=== PATIENT | male | born 1940 | race Caucasian/White ===

== ENCOUNTER 2017-10-31 02:57 | Outpatient (CLI) | payer MEDICARE, SELFPAY ==
[2017-10-31 14:50] LABS: Anion Gap 9.4 mmol/L (3-11); BUN 24 mg/dL (7-18); CO2 26.6 mmol/L (21.0-32.0); CREATININE 1.08 mg/dL (0.70-1.30); Calcium 8.3 mg/dL (8.5-10.1); Chloride 105 mmol/L (98-107); Glucose 103 mg/dL (70-100); Potassium 4.4 mmol/L (3.5-5.1); Sodium 141 mmol/L (136-145)
== END 2017-10-31 03:17 ==
PROVIDERS: PCP Nurse Practitioner Family; Visit Provider Nurse Practitioner Family
DX: I10 Essential (primary) hypertension (principal)
CPT/HCPCS: 36415; 80048

== ENCOUNTER 2017-11-15 02:14 | Outpatient (CLI) | payer MEDICARE, SELFPAY ==
[2017-11-15 09:55] LABS: Albumin 3.6 g/dL (3.4-5.0); Calcium 8.9 mg/dL (8.5-10.1)
== END 2017-11-15 02:34 ==
PROVIDERS: PCP Nurse Practitioner Family; Visit Provider Nurse Practitioner Family
DX: E83.51 Hypocalcemia (principal)
CPT/HCPCS: 36415; 82040; 82310

== ENCOUNTER 2017-12-11 01:40 | Outpatient (CLI) | payer MEDICARE, SELFPAY ==
[2017-12-11 10:37] LABS: Abs Immature Grans 0.02 k/cumm (0.0-0.09); Absolute Basophil Count 0.01 k/cumm (0.0-0.2); Absolute Eosinophil Count 0.21 k/cumm (0.0-0.7); Basophils % 0.2; Eosinophils % 4.2; HCT 39.7 % (40.0-50.0); HGB 13.9 g/dL (13.5-17.5); Immature Grans % 0.4; Lymphocytes % 33.7; Mean Corpuscular Hemoglobin 33.9 pg (27.0-33.0); Mean Corpuscular Volume 96.8 fL (80-95); Mean Platelet Volume 9.9 fL (8.0-11.0); Monocytes % 11.9; Neutrophils % 49.6; Platelet Count 212 x1000/uL (130-400); RBC Distribution Width 12.4 % (11.8-14.1); White Blood Cell Count 5.04 k/cumm (4.4-10.8)
[2017-12-11 12:58] LABS: ALT 35 U/L (12-78); AST 22 U/L (15-37); Albumin 3.7 g/dL (3.4-5.0); Alkaline Phosphatase 44 U/L (46-116); Anion Gap 5.1 mmol/L (3-11); BUN 18 mg/dL (7-18); Bilirubin, Total 0.7 mg/dL (0.2-1.0); CO2 31.9 mmol/L (21.0-32.0); CREATININE 0.93 mg/dL (0.70-1.30); Calcium 9.1 mg/dL (8.5-10.1); Chloride 102 mmol/L (98-107); Glucose 99 mg/dL (70-100); Potassium 4.3 mmol/L (3.5-5.1); Sodium 139 mmol/L (136-145); TSH (W/Ref FT4) 1.47 uIU/mL (0.358-3.74); Total Protein 6.6 g/dL (6.4-8.2)
== END 2017-12-11 02:00 ==
PROVIDERS: PCP Nurse Practitioner Family; Visit Provider Nurse Practitioner Family
DX: R53.83 Other fatigue (principal)
CPT/HCPCS: 36415; 80053; 84443; 85025

== ENCOUNTER 2018-03-21 16:09 | Outpatient (CLI) | payer MEDICARE, SELFPAY ==
--- NOTE | 2018-03-21 16:00 | DI.RAD_ITS ---
SYMPTOMS/DIAGNOSIS: DYSPNEA ON EXERTION, R06.09, CERVICALGIA, M54.2, ACUTE PHARYNGITIS, J02.9, SORE THROAT, ? CARDIOPULMONARY VS MALIGNANCY PA AND LATERAL CHEST: Comparison is made with chest CT dated February,. The heart size is at the upper limits of normal. The aorta is tortuous and shows some calcification but appears to be normal in diameter. The lungs are clear. No infiltrate, effusion or mass is identified. IMPRESSION: No acute abnormality.
[2018-03-21 16:25] LABS: Abs Immature Grans 0.02 k/cumm (0.0-0.09); Absolute Basophil Count 0.01 k/cumm (0.0-0.2); Absolute Eosinophil Count 0.13 k/cumm (0.0-0.7); Absolute Lymphocyte Count 1.62 k/cumm (1.2-3.4); Absolute Neutrophil Count 4.24 k/cumm (1.2-6.7); Basophils % 0.1; Eosinophils % 1.9; HCT 41.7 % (40.0-50.0); HGB 14.1 g/dL (13.5-17.5); Immature Grans % 0.3; Lymphocytes % 23.8; Mean Corp. HGB Concentration 33.8 g/dL (32.0-36.0); Mean Corpuscular Hemoglobin 32.6 pg (27.0-33.0); Mean Corpuscular Volume 96.5 fL (80-95); Mean Platelet Volume 9.4 fL (8.0-11.0); Monocytes % 11.7; Neutrophils % 62.2; Platelet Count 237 x1000/uL (130-400); RBC 4.32 m/cumm (4.50-6.00); RBC Distribution Width 12.6 % (11.8-14.1); White Blood Cell Count 6.82 k/cumm (4.4-10.8)
[2018-03-21 17:03] LABS: Mono Screening Negative (Negative)
[2018-03-21 18:18] LABS: ALT 26 U/L (12-78); AST 21 U/L (15-37); Albumin 3.9 g/dL (3.4-5.0); Alkaline Phosphatase 52 U/L (46-116); Anion Gap 6.3 mmol/L (3-11); BUN 25 mg/dL (7-18); Bilirubin, Total 0.4 mg/dL (0.2-1.0); CO2 30.7 mmol/L (21.0-32.0); CREATININE 1.05 mg/dL (0.70-1.30); Calcium 9.4 mg/dL (8.5-10.1); Chloride 102 mmol/L (98-107); Glucose 101 mg/dL (70-100); Potassium 4.3 mmol/L (3.5-5.1); Sodium 139 mmol/L (136-145); Total Protein 7.1 g/dL (6.4-8.2)
== END 2018-03-21 16:29 ==
PROVIDERS: PCP Nurse Practitioner Family; Visit Provider Nurse Practitioner Family
DX: R06.09 Other forms of dyspnea (principal); I10 Essential (primary) hypertension; J02.9 Acute pharyngitis, unspecified; R53.83 Other fatigue; M54.2 Cervicalgia
CPT/HCPCS: 36415; 80053; 71046; 85025; 86308

== ENCOUNTER 2018-04-03 00:04 | Outpatient (CLI) | payer MEDICARE, SELFPAY ==
--- NOTE | 2018-04-03 07:40 | MERGE_ITS ---
*[facility], [place]* * Cardiology* [address] [place] [address] Date of study: 04/03/2018 Transthoracic Echocardiography M-mode, complete 2D, complete spectral Doppler, and color Doppler *STUDY CONCLUSIONS* Summary: 1. Left ventricle: The cavity size was normal. Systolic function was hyperdynamic. The estimated ejection fraction was 65-70%. Diastolic parameters were normal for age. There was no evidence of elevated ventricular filling pressure by Doppler parameters. 2. Aortic valve: There was moderate regurgitation. 3. Mitral valve: There was mild regurgitation. 4. Right ventricle: The cavity size was mildly dilated. Systolic function was mildly reduced. 5. Atrial septum: No defect or patent foramen ovale was identified. 6. Tricuspid valve: There was moderate regurgitation. 7. Pulmonary arteries: Pulmonary systolic pressure was in the range of 30mm Hg to 40mm Hg. 8. Inferior vena cava: The vessel was patent and normal in size. The respirophasic diameter changes were in the normal range (greater than or equal to 50%), consistent with normal central venous pressure. *PATIENT PRESENTATION* Height: 162.6cm ((64in) ) S/D Pressure: 125 / 67 Weight: 79.8kg ((175.6lb) ) BSA: 1.92m^2 Test start time: 07:45 AM. Test stop time: 08:35 AM. PERFORMING Unknown PERFORMING [facility] DEPLOYMENT TECHNICIAN RT Beau (Jude)(CT), RDCS ORDERING Elizabeth Moe REFERRING Elizabeth Moe *PROCEDURE DATA* Procedure information: The patient was identified by two identifiers. This study was interpreted by [facility]. Pertinent images and digital data are archived for permanent storage and are available for subsequent review. No prior study was available for comparison. Study status: Routine. Transthoracic echocardiography. M-mode, complete 2D, complete spectral Doppler, and color Doppler. A Transthoracic Echocardiogram was performed. Scanning was performed from the parasternal, apical, subcostal, and suprasternal notch acoustic windows. Images were obtained using an [id number] cardiac ultrasound machine. Image quality was adequate. Study completion: The patient tolerated the procedure well. History: PMH: WALKER cardiomegaly , r/o heart failure or valvular abnormality. r06.09 I 51.7. *CARDIAC ANATOMY* Left ventricle: The cavity size was normal. Systolic function was hyperdynamic. The estimated ejection fraction was 65-70%. The tissue Doppler parameters were normal. Diastolic parameters were normal for age. There was no evidence of elevated ventricular filling pressure by Doppler parameters. Aortic valve: Trileaflet. Doppler: There was no stenosis. There was moderate regurgitation. VTI ratio of LVOT to aortic valve: 0.66. Valve area (VTI): 2.2cm^2. Indexed valve area (VTI): 1.2cm^2/m^2. Peak velocity ratio of LVOT to aortic valve: 0.68. Valve area (Vmax): 2.3cm^2. Indexed valve area (Vmax): 1.2cm^2/m^2. Mean velocity ratio of LVOT to aortic valve: 0.65. Valve area (Vmean): 2.2cm^2. Indexed valve area (Vmean): 1.1cm^2/m^2. Mean gradient (S): 5.4mm Hg. Peak gradient (S): 9.2mm Hg. Mitral valve: Doppler: There was no evidence for stenosis. There was mild regurgitation. Valve area by pressure half-time: 3.8cm^2. Indexed valve area by pressure half-time: 2cm^2/m^2. Left atrium: The atrium was normal in size. Atrial septum: No defect or patent foramen ovale was identified. Right ventricle: The cavity size was mildly dilated. Systolic function was mildly reduced. Pulmonic valve: Doppler: There was no evidence for stenosis. Tricuspid valve: Doppler: There was moderate regurgitation. Pulmonary artery: Poorly visualized. Pulmonary systolic pressure was in the range of 30mm Hg to 40mm Hg. Right atrium: The atrium was normal in size. Pericardium: There was no pericardial effusion. Systemic veins: Inferior vena cava: Well visualized. The vessel was patent and normal in size. The respirophasic diameter changes were in the normal range (greater than or equal to 50%), consistent with normal central venous pressure. Baseline ECG: Sinus bradycardia. Measurements Left ventricle Value Reference LV ID, ED, PLAX 5.9 cm 3.5 - 6.0 LV ID, ES, PLAX (H) 4.1 cm 2.1 - 4.0 LV PW thickness, ED, PLAX 0.9 cm LV end-diastolic volume, 1-p A2C 104 ml LV ejection fraction, 1-p A2C 64 % LV end-diastolic volume, 1-p A4C 92 ml LV ejection fraction, 1-p A4C 60 % LV e', lateral 0.115 m/sec LV E/e', lateral 6 LV e', medial 0.108 m/sec LV E/e', medial 6 LV e', average 0.111 m/sec LV E/e', average 6 Ventricular septum Value Reference IVS thickness, ED, PLAX 1.1 cm LVOT Value Reference LVOT ID, A-P 2.1 cm LVOT area 3.4 cm^2 LVOT peak velocity, S 1.03 m/sec LVOT mean velocity, S 0.71 m/sec LVOT VTI, S 22.5 cm LVOT peak gradient, S 4.3 mm Hg LVOT mean gradient, S 2.3 mm Hg Stroke volume (SV), LVOT DP 76 ml Stroke index (SV/bsa), LVOT DP 40 ml/m^2 Aortic valve Value Reference Aortic valve peak velocity, S 1.5 m/sec Aortic valve mean velocity, S 1.09 m/sec Aortic valve VTI, S 34.0 cm Aortic mean gradient, S 5.4 mm Hg Aortic peak gradient, S 9.2 mm Hg VTI ratio, LVOT/AV 0.66 Aortic valve area, VTI 2.2 cm^2 Velocity ratio, peak, LVOT/AV 0.68 Aortic valve area, peak velocity 2.3 cm^2 Velocity ratio, mean, LVOT/AV 0.65 Aortic valve area, mean velocity 2.2 cm^2 Aortic valve area/bsa, mean velocity 1.1 cm^2/m^2 Aorta Value Reference Aortic root ID, ED 3.7 cm Ascending aorta ID, A-P, S 3.9 cm Left atrium Value Reference LA ID, A-P, ES 4.6 cm LA ID/bsa, A-P (H) 2.4 cm/m^2 <=2.2 LA area, ES, A4C 21.2 cm^2 8.8 - 23.4 LA area, ES, A2C 22 cm^2 LA volume/bsa, ES, 1-p A4C 34 ml/m^2 LA volume, ES, 2-p 62 ml LA volume/bsa, ES, 2-p 32 ml/m^2 LA/aortic root ratio 1.22 Mitral valve Value Reference Mitral E-wave peak velocity 0.7 m/sec Mitral A-wave peak velocity 0.59 m/sec Mitral deceleration time 201 ms 150 - 230 Mitral pressure half-time 58 ms Mitral E/A ratio, peak 1.17 Mitral valve area, PHT, DP 3.8 cm^2 Pulmonary veins Value Reference Pulmonary vein peak velocity, S 0.5 m/sec Pulmonary vein peak velocity, D 0.46 m/sec Pulmonary vein velocity ratio, peak, 1.09 S/D Pulmonary vein A-wave reversal peak 0.29 m/sec velocity Tricuspid valve Value Reference Tricuspid regurg peak velocity 2.8 m/sec Tricuspid peak RV-RA gradient 31.5 mm Hg Right atrium Value Reference RA area, ES, A4C 18.1 cm^2 8.3 - 19.5 Legend: (L) and (H) rashmi values outside specified reference range. I have personally reviewed the images and have reviewed and edited the reported findings. Electronically signed by Elijah Martines MD 04/03/2018 12:52
== END 2018-04-03 00:24 ==
PROVIDERS: PCP Nurse Practitioner Family; Visit Provider Nurse Practitioner Family
DX: I51.7 Cardiomegaly (principal); R06.09 Other forms of dyspnea; I08.3 Combined rheumatic disorders of mitral, aortic and tricuspid valves; I10 Essential (primary) hypertension
CPT/HCPCS: 93306

== ENCOUNTER 2018-04-11 00:11 | Outpatient (CLI) | payer MEDICARE, SELFPAY ==
--- NOTE | 2018-04-11 08:30 | ETT_ITS ---
*[facility]* *[facility]* [address] [place] [address] Stress Electrocardiography Kain protocol Date of study: 04/11/2018 *PATIENT PRESENTATION* Height: 162.6cm (64in) Blood Pressure: Weight: 79.8kg (175.6lb) BSA: 1.92m^2 Referring physician: Elizabeth Moe Ordering physician: Elizabeth Moe Impressions: Abnormal study , ST depressions without angina. Summary: 1. Stress ECG conclusions: The stress ECG is positive. 2. Stress: The target heart rate was achieved. The heart rate response to stress is normal. There is a normal resting blood pressure with an appropriate response to stress. The patient experienced no chest pain during stress. Exercise capacity is above normal for age. 3. Treadmill exercise testing was performed using the Kain protocol. The patient exercised for 9 min 39 sec, to protocol stage 3, to a maximal work rate of 11.2mets. Exercise was terminated due to fatigue. Recommendations: Exercise stress myocardial perfusion imaging should be performed in order to evaluate coronary artery disease. Indication: R06.02, Appropriate Use Criteria: A (Appropriate). History: REASON FOR VISIT: DYSPNEA ON EXERTION. POORLY CONTROLLED BLOOD PRESSURE. Risk factors: Hypertension. Obesity. Cholesterol: 192mg/dl. HDL: 73mg/dl. LDL: 113mg/dl. Triglycerides: 50mg/dl. ALLERGIES: NO REPORTED ALLERGIES. MEDICATIONS: ATORVASTATIN 20 MG DAILY. LOSARTAN 50 MG DAILY. CYCLOBENZAPRINE 5 MG TID PRN. ACETAZOLAMIDE 250 MG BID PRN. ASCORBIC ACID 1000 MG DAILY PRN. CALCIUM CARBONATE-VIT D3 MIN DAILY. IBUPROFEN 400 MG Q 6 HRS PRN. MVI DAILY. FEXOFENADINE 180 MG DAILY PRN. SCOPOLAMINE PATCH Q 3 DAYS PRN. HYDROCHLOROTHIAZIDE 25 MG DAILY. POTASSIUM CHLORIDE 10 MEQ DAILY. ZALEPLON 5 MG Q HS. Protocol: Kain protocol. Baseline ECG: SINUS BRADYCARDIA. HR 52 BPM. INCOMPLETE RBBB. Normal ECG. Stress protocol: + +---+ + !Stage !HR !BP (mmHg) ! + +---+ + !Baseline supine !52 !130/80 (97) ! + +---+ + !Baseline standing !75 !132/82 (99) ! + +---+ + !Stage I; 1.7mph, 10degrees; 3 min !107!160/88 (112)! + +---+ + !Stage II; 2.5mph, 12degrees; 3 min !117!160/94 (116)! + +---+ + !Stage III; 3.4mph, 14degrees; 3 min!152!184/90 (121)! + +---+ + !Peak stress !130! ! + +---+ + !Immediate post stress !---!190/88 (122)! + +---+ + !Recovery; 1 min !130! ! + +---+ + !Recovery; 3 min !99 !160/90 (113)! + +---+ + !Recovery; 6 min !85 !136/78 (97) ! + +---+ + * Stress results: Maximal heart rate during stress was 156bpm (108% of maximal predicted heart rate). The maximal predicted heart rate was 144bpm. The target heart rate was achieved. The heart rate response to stress is normal. There is a normal resting blood pressure with an appropriate response to stress. The rate-pressure product for the peak heart rate and blood pressure was 80377aq Hg/min. The patient experienced no chest pain during stress. Exercise capacity is above normal for age. Stress ECG: TREADMILL PORTION OF STRESS TEST ENDED IN 9 MINUTES & 39 SECONDS DUE TO FATIGUE. NORMAL HEART RATE AND BLOOD PRESSURE RESPONSE TO EXERCISE MAX HR = 156 % OF TARGET = 108 RARE PVCs APPROXIMATE METS ACHIEVED = 11.[address] SEGMENT DEPRESSIONS NOTED V4, V5 & V6 AT 8 MINUTES & 49 SECONDS OF PEAK EXERCISE. RETURNED BACK TO BASELINE BY 6 MINUTES RECOVERY PERIOD. ABOVE AVERAGE FUNCTIONAL CAPACITY FOR EXERCISE. The stress ECG is positive. Stress ECG change: slow upsloping depression. Severity: 1.0-1.5mm. In lead groups: V4, V5 and V6. Garcia treadmill score: 2. This score predicts a moderate risk of cardiac events. Study data: Salo Munroe MD supervised and was readily available during the procedure. This study was interpreted by [facility]. Study status: Routine. Consent: The risks, benefits, and alternatives to the procedure were explained to the patient and informed consent was obtained. Procedure: Initial setup. A baseline ECG was recorded. Surface ECG leads and manual cuff blood pressure measurements were monitored. Heart sounds: Normal. Lung sounds: Normal. Treadmill exercise testing was performed using the Kain protocol. The patient exercised for 9 min 39 sec, to protocol stage 3, to a maximal work rate of 11.2mets. Exercise was terminated due to fatigue. Study completion: The patient tolerated the procedure well and was discharged from the lab. Discharge: The patient left the laboratory in stable condition. Birthdate: Patient birthdate: 1940. Sex: Gender: male. Study date: Study date: 04/11/2018. Study time: 00:01 AM. Signature Documentation: The Stress ECG portion of this study was interpreted by Salo Munroe MD. Electronically signed by Salo Munroe 04/11/2018 13:07
== END 2018-04-11 00:31 ==
PROVIDERS: PCP Nurse Practitioner Family; Visit Provider Nurse Practitioner Family
DX: R06.09 Other forms of dyspnea (principal); I10 Essential (primary) hypertension; E78.5 Hyperlipidemia, unspecified; R94.30 Abnormal result of cardiovascular function study, unspecified; E66.9 Obesity, unspecified
CPT/HCPCS: 93016; 93018; 93017

== ENCOUNTER 2018-04-16 13:02 | Outpatient (CLI) | payer MEDICARE, SELFPAY ==
[2018-04-16 15:41] LABS: Cholesterol 134 mg/dL (50-200); HDL Cholesterol 61 mg/dL (40-60); LDL CHOLESTEROL 62 mg/dL (<100); Triglyceride 37 mg/dL (30-150)
[2018-04-17 09:25] LABS: PSA, Screening <0.1 ng/ml (0-6.5)
== END 2018-04-16 13:22 ==
PROVIDERS: PCP Nurse Practitioner Family; Visit Provider Nurse Practitioner Family
DX: E78.5 Hyperlipidemia, unspecified (principal); Z85.46 Personal history of malignant neoplasm of prostate; Z12.5 Encounter for screening for malignant neoplasm of prostate
CPT/HCPCS: 36415; 80061; 83721; 84153

== ENCOUNTER 2018-04-19 00:12 | Outpatient (CLI) | payer MEDICARE, SELFPAY ==
--- NOTE | 2018-04-19 07:02 | MERGEMPI_ITS ---
*[facility]* [address] [place] [address] Myocardial Perfusion Imaging - SPECT Kain protocol Date of study: 04/19/2018 *PATIENT PRESENTATION* Height: 162.6cm (64in) Blood Pressure: Weight: 79.8kg (175.6lb) BSA: 1.92m^2 Referring physician: Melissa Mejia Ordering physician: Elizabeth Moe Impressions: Normal perfusion and contraction by Tc99m Sestamibi Imaging. Summary: 1. Myocardial perfusion imaging: No myocardial perfusion defects noted. 2. The calculated left ventricular ejection fraction after stress: 55%. LV global systolic function is normal. No left ventricular regional motion abnormality. 3. Stress ECG conclusions: The stress ECG is positive. Maximal ST change occurred during the exercise phase. Stress ECG change: horizontal depression. Severity: 1.5-2.0mm. In lead groups: V3, V4, V5 and V6. Rare atrial ectopy. 4. Stress: The target heart rate was achieved. There is resting hypertension with an appropriate response to stress. The patient experienced no chest pain during stress. Exercise capacity is above normal for age. Indication: R06.09. History: REASON FOR VISIT: PT IS RETURNING FOR A NUCLEAR MPI STRESS TEST DUE TO AN ABNORMAL TREADMILL STRESS TEST ON 04/11/[address] DEPRESSIONS WITHOUT ANGINA. Risk factors: Hypertension. Obesity. Cholesterol: 192mg/dl. HDL: 61mg/dl. LDL: 62mg/dl. Triglycerides: 37mg/dl. ALLERGIES: SIMVASTATIN. MEDICATONS: ATARVASTATIN 20 MG DAILY. LOSARTAN 50 MG DAILY. CYCLOBENZAPRINE 5 MG TID PRN. ACETAZOLAMIDE 250 MG BID PRN. ASCORBIC ACID 1000 MG DAILY PRN. CALCIUM CARBONATE-VIT D3 DAILY. IBUPROFEN 400 MG Q 6 HRS PRN. MVI DAILY. FEXOFENADINE 180 MG DAILY PRN. SCOPOLAMINE PATCH Q 3 DAYS PRN. HYDROCHLOROTHIAZIDE 25 MG DAILY. POTASSIUM CHLORIDE 10 MEQ DAILY. ZALEPLON 5 MG Q HS. Imaging Technique: Protocol: Kain protocol. Acquisition: Gated SPECT; 1 day - rest/stress. The patient was imaged in the supine position. Attenuation correction used. Isotope administration: - Rest. Tc[99m]-sestamibi. Dose: 10.2mCi. Injection time: 08:20 AM. Injection to stress time: 00:45. - Stress. Tc[99m]-sestamibi. Dose: 32.6mCi. Injection time: 10:00 AM. 1-2 min before end of exercise Baseline ECG: SINUS BRADYCARDIA. INCOMPLETE RBBB. HR 55 BPM. Stress protocol: + +---+ + !Stage !HR !BP (mmHg) ! + +---+ + !Baseline supine !55 !154/84 (107)! + +---+ + !Baseline standing !54 !152/82 (105)! + +---+ + !Stage I; 1.7mph, 10degrees; 3 min !109!142/80 (101)! + +---+ + !Stage II; 2.5mph, 12degrees; 3 min !126!152/80 (104)! + +---+ + !Stage III; 3.4mph, 14degrees; 3 min!150! ! + +---+ + !Peak stress !152! ! + +---+ + !Recovery; 1 min !152!182/78 (113)! + +---+ + !Recovery; 3 min !88 !156/90 (112)! + +---+ + !Recovery; 6 min !72 !142/80 (101)! + +---+ + * Stress results: Maximal heart rate during stress was 152bpm (106% of maximal predicted heart rate). The maximal predicted heart rate was 144bpm. The target heart rate was achieved. There is resting hypertension with an appropriate response to stress. The rate-pressure product for the peak heart rate and blood pressure was 07526kh Hg/min. The patient experienced no chest pain during stress. Exercise capacity is above normal for age. Stress ECG: TREADMILL PORTION OF STRESS TEST ENDED IN 8 MINUTES & 1 SECOND DUE TO PT REACHED 100% OF HIS EXERCISE CAPACITY. NORMAL HEART RATE AND BLOOD PRESSURE RESPONSE TO EXERCISE MAX HR = 152 % OF TARGET = 105 RARE PAC APPROXIMATE METS ACHIEVED = 10.[address] SEGMENT DEPRESSIONS IN V3, V4, V5 & V6 FIRST NOTED AT 6 MINUTES & [address] SEGMENTS RETURNED TO PRE-EXERCISE BASELINE AT 3 MINUTES & 39 SECONDS OF RECOVERY PERIOD. ABOVE AVERAGE FUNCTIONAL CAPACITY FOR EXERCISE. The stress ECG is positive. Maximal ST change occurred during the exercise phase. Stress ECG change: horizontal depression. Severity: 1.5-2.0mm. In lead groups: V3, V4, V5 and V6. Rare atrial ectopy. Myocardial perfusion: Imaging information: gated. Left ventricular size is normal. No myocardial perfusion defects noted. Ventricular Function (Wall Motion): The calculated left ventricular ejection fraction after stress: 55%. LV global systolic function is normal. No left ventricular regional motion abnormality. Study data: Melissa Mejia MD supervised and was readily available during the procedure. This study was interpreted by [facility]. Study status: Routine. Consent: The risks, benefits, and alternatives to the procedure were explained to the patient and informed consent was obtained. Procedure: Initial setup. A baseline ECG was recorded. Surface ECG leads and manual cuff blood pressure measurements were monitored. Heart sounds: Normal. Lung sounds: Normal. Treadmill exercise testing was performed using the Kain protocol. Study completion: All catheters inserted during the procedure were removed. The patient tolerated the procedure well and was discharged from the lab. Discharge: The patient left the laboratory in stable condition. Birthdate: Patient birthdate: 1940. Sex: Gender: male. Study date: Study date: 04/19/2018. Study time: 00:01 AM. Signature Documentation: - The imaging portion of this study was interpreted by [employer] Melissa Mejia MD. - The Stress ECG portion of this study was interpreted by Melissa Mejia MD. Electronically signed by Melissa Mejia 04/19/2018 19:00
== END 2018-04-19 00:32 ==
PROVIDERS: PCP Nurse Practitioner Family; Visit Provider Nurse Practitioner Family
DX: R06.09 Other forms of dyspnea (principal); R94.30 Abnormal result of cardiovascular function study, unspecified; I10 Essential (primary) hypertension; E66.9 Obesity, unspecified
CPT/HCPCS: 78452; 93016; 93018; 93017

== ENCOUNTER 2018-12-07 13:24 | Outpatient (CLI) | payer MEDICARE, SELFPAY ==
[2018-12-07 13:57] LABS: Hemoglobin A1C 5.7 % (4.5-6.2)
[2018-12-07 14:38] LABS: ALT 36 U/L (16-63); AST 19 U/L (15-37); Albumin 3.9 g/dL (3.4-5.0); Alkaline Phosphatase 49 U/L (46-116); Anion Gap 9.7 mmol/L (3-11); BUN 19 mg/dL (7-18); Bilirubin, Total 0.8 mg/dL (0.2-1.0); CO2 28.3 mmol/L (21.0-32.0); Calculated LDL 63 mg/dL; Chloride 103 mmol/L (98-107); Cholesterol 155 mg/dL (50-200); Glucose 98 mg/dL (70-100); HDL Cholesterol 68 mg/dL (40-60); Potassium 4.1 mmol/L (3.5-5.1); Sodium 141 mmol/L (136-145); Total Protein 6.8 g/dL (6.4-8.2); Triglyceride 124 mg/dL (30-150)
[2018-12-10 09:42] LABS: PSA, Screening <0.1 ng/ml (0-6.5)
== END 2018-12-07 13:44 ==
PROVIDERS: PCP Nurse Practitioner Family; Visit Provider Nurse Practitioner Family
DX: C61 Malignant neoplasm of prostate (principal); E78.5 Hyperlipidemia, unspecified; R73.01 Impaired fasting glucose; I10 Essential (primary) hypertension
CPT/HCPCS: 36415; 80053; 80061; 84153; 83036

== ENCOUNTER 2018-12-17 01:47 | Outpatient (CLI) | payer MEDICARE, SELFPAY | END 2018-12-17 02:07 | PROVIDERS: PCP Nurse Practitioner Family; Visit Provider Nurse Practitioner Family | DX: R42 Dizziness and giddiness (principal); I49.1 Atrial premature depolarization; I49.3 Ventricular premature depolarization | CPT/HCPCS: 93225 ==

== ENCOUNTER 2018-12-19 15:18 | Outpatient (CLI) | payer MEDICARE, SELFPAY ==
--- NOTE | 2018-12-20 08:05 | W.HOLTRPT ---
Holter Monitor Report Holter Monitor Note: This is a 48-hour Holter monitor ordered for the indication of lightheadedness. ?The patient was in normal sinus rhythm for the majority of the recording time. Average heart rate while in normal sinus rhythm was 59 bpm (minimum 45bpm ?maximum 107bpm) ?There were no episodes of supraventricular tachycardia. There were rare (less than 1%) PACs and one run of 3 PACs in a row. ?There were no episodes of ventricular tachycardia. There were rare (less than 1%) single ventricular ectopic beats. ?There were no episodes of atrial fibrillation, no pauses greater than 3 seconds, and no episodes of high degree heart block. ?There were no patient triggered events Date of service: 12/20/18 Time of Service: 08:06
== END 2018-12-19 15:38 ==
PROVIDERS: PCP Nurse Practitioner Family; Visit Provider Nurse Practitioner Family
DX: R42 Dizziness and giddiness (principal); I49.1 Atrial premature depolarization; I49.3 Ventricular premature depolarization
CPT/HCPCS: 93226

== ENCOUNTER 2018-12-20 08:05 | Outpatient (CLI) | payer MEDICARE, SELFPAY | END 2018-12-20 08:25 | PROVIDERS: PCP Nurse Practitioner Family; Referring Provider Nurse Practitioner Family; Visit Provider Internal Medicine Cardiovascular Disease | DX: R42 Dizziness and giddiness (principal); I49.1 Atrial premature depolarization; I49.3 Ventricular premature depolarization | CPT/HCPCS: 93227 ==

== ENCOUNTER 2019-05-01 13:35 | Outpatient (CLI) | payer MEDICARE, SELFPAY ==
[2019-05-01 13:57] LABS: Abs Immature Grans 0.01 k/cumm (0.0-0.09); Absolute Basophil Count 0.01 k/cumm (0.0-0.2); Absolute Eosinophil Count 0.11 k/cumm (0.0-0.7); Absolute Lymphocyte Count 1.84 k/cumm (1.2-3.4); Absolute Monocyte Count 0.77 k/cumm (0.11-0.7); Absolute Neutrophil Count 4.09 k/cumm (1.2-6.7); Basophils % 0.1; Eosinophils % 1.6; HCT 39.7 % (40.0-50.0); HGB 13.5 g/dL (13.5-17.5); Immature Grans % 0.1 %; Lymphocytes % 26.9; Mean Corpuscular Hemoglobin 32.4 pg (27.0-33.0); Mean Corpuscular Volume 95.2 fL (80-95); Mean Platelet Volume 10.6 fL (8.0-11.0); Monocytes % 11.3; Platelet Count 240 x1000/uL (130-400); RBC 4.17 m/cumm (4.50-6.00); RBC Distribution Width 13.3 % (11.8-14.1); White Blood Cell Count 6.83 k/cumm (4.4-10.8)
[2019-05-01 14:47] LABS: ALT 25 U/L (16-63); AST 18 U/L (15-37); Albumin 3.9 g/dL (3.4-5.0); Alkaline Phosphatase 40 U/L (46-116); Anion Gap 8.7 mmol/L (3-11); BUN 22 mg/dL (7-18); Bilirubin, Total 0.8 mg/dL (0.2-1.0); CO2 27.3 mmol/L (21.0-32.0); CREATININE 1.04 mg/dL (0.70-1.30); Calcium 8.4 mg/dL (8.5-10.1); Chloride 105 mmol/L (98-107); Glucose 91 mg/dL (74-106); Potassium 4.3 mmol/L (3.5-5.1); Sodium 141 mmol/L (136-145); TSH (W/Ref FT4) 2.02 uIU/mL (0.36-3.74); Total Protein 6.4 g/dL (6.4-8.2)
[2019-05-01 14:58] LABS: Hemoglobin A1C 5.9 % (3.8-5.6)
[2019-05-02 10:04] LABS: PSA, Screening <0.1 ng/mL (0.0-6.5)
== END 2019-05-01 13:55 ==
PROVIDERS: PCP Nurse Practitioner Family; Visit Provider Nurse Practitioner Family
DX: R73.01 Impaired fasting glucose (principal); R53.83 Other fatigue; R42 Dizziness and giddiness; Z12.5 Encounter for screening for malignant neoplasm of prostate
CPT/HCPCS: 36415; 80053; 84153; 83036; 84443; 85025

== ENCOUNTER 2019-11-04 09:14 | Outpatient (CLI) | payer MEDICARE, SELFPAY ==
[2019-11-06 07:45] LABS: Patient Race White; SARS-CoV-2 RNA Undetected (Undetected); SARS-CoV-2 Specimen Source Nasopharynx
== END 2019-11-04 09:34 ==
PROVIDERS: PCP Nurse Practitioner Family; Visit Provider Family Medicine
DX: Z11.59 Encounter for screening for other viral diseases (principal)
CPT/HCPCS: U0003

== ENCOUNTER 2020-01-08 03:05 | Outpatient (CLI) | payer MEDICARE, SELFPAY ==
[2020-01-08 10:25] LABS: ALT 28 U/L (16-63); AST 18 U/L (15-37); Alkaline Phosphatase 48 U/L (46-116); Anion Gap 7.2 mmol/L (3-11); BUN 20 mg/dL (7-18); Bilirubin, Total 0.6 mg/dL (0.2-1.0); CO2 27.8 mmol/L (21.0-32.0); CREATININE 1.05 mg/dL (0.70-1.30); Calcium 8.7 mg/dL (8.5-10.1); Chloride 106 mmol/L (98-107); Glucose 96 mg/dL (74-106); NT-proBNP 48 pg/mL (<300); Potassium 4.9 mmol/L (3.5-5.1); Sodium 141 mmol/L (136-145); Total Protein 6.9 g/dL (6.4-8.2)
== END 2020-01-08 03:25 ==
PROVIDERS: PCP Nurse Practitioner Family; Visit Provider Nurse Practitioner Family
DX: I50.9 Heart failure, unspecified (principal); R60.0 Localized edema; M79.89 Other specified soft tissue disorders
CPT/HCPCS: 36415; 80053; 83880

== ENCOUNTER 2020-02-10 02:57 | Outpatient (CLI) | payer MEDICARE, SELFPAY ==
--- NOTE | 2020-02-10 08:15 | DI.RAD_ITS ---
EXAM: XR LUMBAR SPINE COMPLETE CLINICAL HISTORY: r/o bony pathology; acute worsened BP, back pain at L4-5 level, balance. TECHNIQUE: 2D digital imaging was performed. COMPARISON: No exams were available for comparison FINDINGS: There is no evidence of fracture nor significant listhesis. There is advanced multilevel chronic dis c space narrowing, most severe at L4-5 and L5-S1 levels. However, there is also advanced narrowing o f the other disc spaces. There is relative sparing of L1-2 and a at T12-L1 level which both exhibit normal disc height. There are multilevel anterior osteophytes. Posterior bony ridging evident at L3 -4 and L4-5 levels. Facet arthropathy. Sacroiliac joints appear unremarkable. No osseous lesions. IMPRESSION: Multilevel chronic degenerative disc disease described above. Also facet arthropathy. There is probably an element of spinal canal stenosis here and if clinically indicated this could be further studied with CT or MRI. DATA REPOSITORY: RADIATION DOSE DELIVERED:
[2020-02-10 11:40] LABS: Abs Immature Grans 0.01 10^3/uL (0.0-0.06); Absolute Basophil Count 0.02 10^3/uL (0.0-0.2); Absolute Eosinophil Count 0.12 10^3/uL (0.0-0.7); Absolute Lymphocyte Count 1.71 10^3/uL (1.2-3.4); Absolute Monocyte Count 0.55 10^3/uL (0.1-0.8); Absolute Neutrophil Count 3.68 10^3/uL (1.2-6.7); Basophils % 0.3; HCT 41.8 % (40.0-50.0); HGB 14.2 g/dL (13.5-17.5); Immature Grans % 0.2; Lymphocytes % 28.1; MCH 32.9 pg (27.0-33.0); MPV 10.6 fL (8.0-11.0); Neutrophils % 60.4; Nucleated RBC 0 %; Platelet Count 254 10^3/uL (130-400); RBC 4.31 10^6/uL (4.36-5.78); RDW 12.2 % (11.8-14.1); RDW-SD 44.2 fL; WBC 6.09 10^3/uL (4.4-10.8)
[2020-02-10 12:48] LABS: ALT 29 U/L (16-63); AST 19 U/L (15-37); Albumin 4.1 g/dL (3.4-5.0); Alkaline Phosphatase 48 U/L (46-116); Anion Gap 6.5 mmol/L (3-11); BUN 16 mg/dL (7-18); Bilirubin, Total 0.8 mg/dL (0.2-1.0); CO2 29.5 mmol/L (21.0-32.0); CREATININE 1.14 mg/dL (0.70-1.30); Calcium 9.4 mg/dL (8.5-10.1); Chloride 103 mmol/L (98-107); Glucose 138 mg/dL (74-106); Potassium 4.8 mmol/L (3.5-5.1); Sodium 139 mmol/L (136-145); Total Protein 6.7 g/dL (6.4-8.2)
[2020-02-10 12:50] LABS: C-Reactive Protein < 0.05 mg/dL (0.0-0.3)
[2020-02-10 16:55] LABS: PSA, Screening <0.1 ng/mL (0.0-6.5)
[2020-02-11 11:00] LABS: Prealbumin 35 mg/dL (20-40)
== END 2020-02-10 03:17 ==
PROVIDERS: PCP Nurse Practitioner Family; Visit Provider Student in an Organized Health Care Education/Training Program
DX: M54.5 Low back pain (principal); R26.89 Other abnormalities of gait and mobility; M47.816 Spondylosis without myelopathy or radiculopathy, lumbar region; R63.4 Abnormal weight loss; I10 Essential (primary) hypertension; C61 Malignant neoplasm of prostate; E46 Unspecified protein-calorie malnutrition; Z85.51 Personal history of malignant neoplasm of bladder
CPT/HCPCS: 80053; 84153; 72110; 84134; 84443; 85025; 86140

== ENCOUNTER 2020-02-25 14:36 | Outpatient (CLI) | payer MEDICARE, SELFPAY ==
--- NOTE | 2020-02-25 10:45 | DI.RAD_ITS ---
EXAM: XR CHEST 2V PA LATERAL CLINICAL HISTORY: Unintentional weight loss,R63.4 TECHNIQUE: 2D digital imaging was performed. COMPARISON: CR XR CHEST 2V PA LATERAL from 03/21/2018 FINDINGS: MEDIASTINUM: Tortuous aorta. Mild aortic calcification. HEART: Mildly enlarged. PULMONARY VASCULATURE: Normal. LUNGS: Clear. PLEURAL SPACE: No pleural effusion or pneumothorax. BONE:Degenerative changes in the spine and shoulders. IMPRESSION: No acute pulmonary findings. DATA REPOSITORY: RADIATION DOSE DELIVERED:
== END 2020-02-25 14:56 ==
PROVIDERS: PCP Nurse Practitioner Family; Visit Provider Nurse Practitioner Family
DX: R63.4 Abnormal weight loss (principal)
CPT/HCPCS: 71046

== ENCOUNTER 2020-04-14 03:19 | Outpatient (CLI) | payer MEDICARE, SELFPAY | END 2020-04-14 03:20 | disposition home or self-care (01) | LOC: LBO 03:19 | PROVIDERS: PCP Nurse Practitioner Family; Visit Provider Surgery | DX: Z85.51 Personal history of malignant neoplasm of bladder (principal) | CPT/HCPCS: 36415; 82565 ==

== ENCOUNTER 2020-04-16 02:35 | Outpatient (CLI) | payer MEDICARE, SELFPAY ==
--- NOTE | 2020-04-16 | DI.CT_ITS ---
EXAM: CT ABDOMEN PELVIS WO/W CLINICAL HISTORY: H/O BLADDER CA,Z85.51,F/U TECHNIQUE: Imaging Protocol: Axial computed tomography images with coronal and sagittal reformatted images were created and reviewed CONTRAST MATERIAL: Intravenous: Omnipaque 350 Contrast volume:100 mL Oral: No COMPARISON: CT ABD/PELVIS WO W CONTRAST from 07/02/2014 FINDINGS: ABDOMEN: Lung Bases: There is scarring or atelectasis in the left lung base. Liver: Normal density. There is a tiny hypodensity in the right lobe of the liver. It is too small f or further characterization but likely reflects a small cyst. Portal, Superior Mesenteric, and Splenic Veins: Unremarkable. Gallbladder and Biliary Tract: Cholelithiasis. No biliary ductal dilatation. Pancreas: Normal density, no abnormal calcifications or inflammatory process. There is a stable 1 cm cyst in the uncinate process. It is unchanged compared to the examination from 07/02/2014. Spleen: Normal. Adrenals: No masses seen. Kidneys: Normal size, contour and axis. No radiodense stones or obstructive uropathy. Tiny hypodensit ies are seen in the kidneys. They are too small for further characterization but likely reflect smal l cysts. Abdominal Aorta: Abdominal portion non-dilated. Moderate atherosclerosis. Bowel: No obstruction or bowel wall thickening. No evidence of appendicitis. Diverticulosis in the s igmoid colon but no evidence of acute diverticulitis. Peritoneal Cavity: No ascites, collection or mesenteric inflammatory response. No free air. Lymph Nodes: Within normal limits. Bones: Within normal limits for the patient's age. Soft Tissues: Small fat containing umbilical hernia. PELVIS: Bladder: Symmetric distention, no gross wall thickening. No bladder stones are seen. No filling defe cts are seen in the urinary bladder to suggest a bladder mass. Reproductive Organs: Unremarkable as visualized. Lymph Nodes: Within normal limits. Bones: Within normal limits for the patient's age. IMPRESSION: 1. No evidence of a residual or recurrent bladder mass. 2. No evidence of abdominal or pelvic metastatic disease. 3. Cholelithiasis. No biliary ductal dilatation. RADIATION DOSE DELIVERED: 2,132.81mGy.cm Total DLP 2,132.81mGy.cm Total DLP DATA REPOSITORY: All CT scans at this facility are submitted to the National Radiology Data Registry (NRDR) Dose Index Registry (DIR) with the [employer] ([employer]). RADIATION OPTIMIZATION: All CT scans at this facility use at least one of these dose optimization te chniques: automated exposure control; mA and/or kV adjustment per patient size (includes targeted exa ms where dose is matched to clinical indication); or iterative reconstruction.
[2020-04-16] MEDS: Normal Saline - Diluent 50 ML VIAL IV ×2 (10:43→10:44)
[2020-04-16] MEDS: Omnipaque 350 MG/ML 50 ML BTL IJ ×2 (10:43→10:44)
[2020-04-16] MEDS: Normal Saline Flush 10 ML SYR IVP (10:46)
== END 2020-04-16 02:55 ==
PROVIDERS: PCP Nurse Practitioner Family; Visit Provider Surgery
DX: Z85.51 Personal history of malignant neoplasm of bladder (principal); K80.20 Calculus of gallbladder without cholecystitis without obstruction
CPT/HCPCS: 74178; Q9967

== ENCOUNTER 2020-05-18 02:17 | Outpatient (CLI) | payer MEDICARE, SELFPAY ==
--- NOTE | 2020-05-18 08:45 | DI.US_ITS ---
EXAM: US HERNIA CLINICAL HISTORY: R/o recurrent R inguinal hernia s/p repair '19, RT GROIN PAIN, R10.31. TECHNIQUE: Ultrasound was performed using standard protocol. COMPARISON: CT CT ABDOMEN PELVIS WO/W from 04/16/2020 FINDINGS: Sonographic assessment utilizing grayscale and color Doppler imaging was performed and targeted to th e area of clinical concern. There is no evidence of a residual or recurrent inguinal hernia. Sonographically benign-appearing ly mph nodes are seen in the right inguinal region. No suspicious cystic or solid mass is seen sonograp hically. IMPRESSION: No evidence of a right inguinal hernia. DATA REPOSITORY:
== END 2020-05-18 02:37 ==
PROVIDERS: PCP Nurse Practitioner Family; Visit Provider Nurse Practitioner Family
DX: R10.31 Right lower quadrant pain (principal)
CPT/HCPCS: 76857

== ENCOUNTER 2020-11-23 02:04 | Outpatient (CLI) | payer MEDICARE, SELFPAY ==
[2020-11-23 10:50] LABS: Abs Immature Grans 0.03 10^3/uL (0.0-0.06); Absolute Basophil Count 0.03 10^3/uL (0.0-0.2); Absolute Eosinophil Count 0.27 10^3/uL (0.0-0.7); Absolute Lymphocyte Count 1.34 10^3/uL (1.2-3.4); Absolute Monocyte Count 0.88 10^3/uL (0.1-0.8); Absolute Neutrophil Count 3.87 10^3/uL (1.2-6.7); Basophils % 0.5; Eosinophils % 4.2; HCT 40.2 % (40.0-50.0); Immature Grans % 0.5; Lymphocytes % 20.9; MCH 33.7 pg (27.0-33.0); MCHC 34.8 % (32.0-36.0); MCV 96.6 fL (80-95); MPV 9.9 fL (8.0-11.0); Monocytes % 13.7; Neutrophils % 60.2; Nucleated RBC 0 %; Platelet Count 236 10^3/uL (130-400); RBC 4.16 10^6/uL (4.36-5.78); RDW 11.9 % (11.8-14.1); RDW-SD 42.7 fL; WBC 6.42 10^3/uL (4.4-10.8)
[2020-11-23 14:14] LABS: ALT 27 U/L (16-63); AST 14 U/L (15-37); Alkaline Phosphatase 57 U/L (46-116); BUN 18 mg/dL (7-18); Bilirubin, Total 0.9 mg/dL (0.2-1.0); CO2 27.5 mmol/L (21.0-32.0); CREATININE 1.1 mg/dL (0.70-1.30); Calcium 8.8 mg/dL (8.5-10.1); Calculated LDL 71 mg/dL (<100); Chloride 100 mmol/L (98-107); Cholesterol 152 mg/dL (<200); Glucose 101 mg/dL (74-106); HDL Cholesterol 70 mg/dL (40-60); Potassium 4.7 mmol/L (3.5-5.1); Total Protein 6.7 g/dL (6.4-8.2); Triglyceride 56 mg/dL (<150)
[2020-11-23 14:26] LABS: Anion Gap 8.5 mmol/L (3-11); Sodium 136 mmol/L (136-145)
[2020-11-23 16:41] LABS: Hemoglobin A1C 5.6 % (<5.7)
[2020-11-24 11:45] LABS: Hepatitis C Ab w Rflx HCV PCR Negative (Negative)
[2020-11-24 12:49] LABS: PSA, Screening <0.1 ng/mL (0.0-6.5)
== END 2020-11-23 02:05 | disposition home or self-care (01) ==
LOC: LBO 02:04
PROVIDERS: PCP Nurse Practitioner Family; Visit Provider Nurse Practitioner Family
DX: I10 Essential (primary) hypertension (principal); E78.5 Hyperlipidemia, unspecified; R73.01 Impaired fasting glucose; Z11.59 Encounter for screening for other viral diseases; Z12.5 Encounter for screening for malignant neoplasm of prostate
CPT/HCPCS: 36415; 80053; 80061; 84153; 86803; 83036; 85025

== ENCOUNTER 2021-02-15 15:46 | Outpatient (CLI) | payer MEDICARE, SELFPAY ==
[2021-02-16 16:31] LABS: COVID-19 RT-PCR UVMMC Result Negative (Negative)
== END 2021-02-15 15:47 | disposition home or self-care (01) ==
LOC: LBO 15:50
PROVIDERS: PCP Nurse Practitioner Family; Visit Provider Family Medicine
DX: Z20.822 Contact with and (suspected) exposure to COVID-19 (principal)
CPT/HCPCS: U0003; U0005

== ENCOUNTER 2021-02-27 11:53 | Emergency (ER) | payer MEDICARE, SELFPAY ==
[2021-02-27 11:59] VITALS: BP 160/86; PULSE 81; RESP 12; TEMP 36.7; O2SAT 96
--- NOTE | 2021-02-27 12:28 | ED.GENADUL_ITS ---
Discharge Plan Disposition Patient Disposition: HOME Condition: Stable Discharge Details Clinical Impression: Knee pain, right Primary Care Provider: Elizabeth Moe ED Provider: Miguel Bragg [place] Meds and New Rx's Prescriptions: Continued mecobalamin (vitamin B12) 1,000 mcg tablet,chewable 1,000 mcg PO DAILY RF: 0 naproxen sodium [Aleve] 220 mg tablet See Rx Instructions PO BID PRN (Reason: back pain) RF: 0 pantoprazole 20 mg tablet,delayed release (DR/EC) 20 mg PO DAILY Qty: 90 RF: 3 bupropion HCl [Wellbutrin XL] 150 mg tablet extended release 24 hr See Rx Instructions PO QAM MDD 450 mg Qty: 90 RF: 3 bupropion HCl 300 mg tablet extended release 24 hr See Rx Instructions PO QAM MDD 450 mg Qty: 90 RF: 3 multivitamin [Daily Vitamin] 1 EACH tablet 1 ea PO DAILY RF: 0 ascorbic acid (vitamin C) 1,000 MG tablet 1,000 mg PO DAILY RF: 0 ibuprofen 200 MG capsule 400 mg PO Q6H PRN RF: 0 calcium carbonate-vit D3-min 1 EACH tablet 1 ea PO RF: 0 aspirin 81 mg tablet,delayed release (DR/EC) 81 mg PO DAILY RF: 0 atorvastatin 40 mg tablet 40 mg PO DAILY RF: 0 zaleplon 5 mg capsule See Rx Instructions PO .QHS PRN RF: 0 amlodipine 10 mg tablet 10 mg PO DAILY RF: 0 losartan 100 mg tablet 100 mg PO DAILY RF: 0 carvedilol 6.25 mg tablet 6.25 mg PO BID RF: 0 scopolamine base [Transderm-Scop] 1 mg over 3 days patch 3 day 1 patch Transdermal Q72H PRN (Reason: motion sickness) Qty: 10 RF: 0 venlafaxine 75 mg capsule,extended release 24hr 75 mg PO DAILY Qty: 45 RF: 0 sildenafil 50 mg tablet 50 mg PO DAILY PRN (Reason: sexual activity) Qty: 10 RF: 6 Discharge Instructions Instructions: Knee Pain (ED) Additional Instructions: Your x-ray reveals reveals soft tissue swelling but no bony abnormality. Wear Jann wrap and use crutches, weightbearing as tolerated. Rest, elevate, cool compresses every 2 hours for 20 minutes. I have placed you on the orthopedic list, please contact their office on Monday to discuss your ER visit and set up outpatient reevaluation. Please watch for new or worsening symptoms and return to the ER for any concerns Referrals: Daniel Gage MD [ [facility] STAFF PHYSICIAN] - Discharge Data Discharge Date/Time-TO BE ENTERED AT DEPARTURE: 02/27/21 13:31 Medical Decision Making 80-year-old gentleman who had a mechanical slip and fall yesterday evening presents for right leg pain. Denies any other injury. His inferior right femur region and knee has diffuse tenderness, swelling, ecchymosis. This appears to be left within the joint and likely more muscular. He is able to bear weight, extremely low suspicion for acute femur fracture. Hip and ankle unremarkable. Neuro, vascular, tendon intact. Plan is to obtain an x-ray. Patient reports that he was unable to bear weight yesterday but is able to bear weight today. We discussed that x-rays certainly have limitations and he likely needs outpatient follow-up through orthopedics for potential additional imaging such as ultrasound and/or MRI for further evaluation of his symptoms. X-ray reveals some soft tissue swelling but no bony abnormality. Discussed x- rays with patient. Patient declines a long-leg immobilizer but is willing to have two 6 inch Jann wrap wrapped around his leg and knee. He already has crutches. Encouraged to rest, elevate, cool compresses every 2 hours for 20 minutes. [id number] medication such as Tylenol for discomfort as directed . I have placed him on the orthopedic list to help expedite outpatient orthopedic care. Standard discharge and return precautions provided This documentation was generated using [employer] dictation system, please disregard any oddities of phrase or misspellings. Medical Records Medical records reviewed: Yes I reviewed the patient's medical records. Imaging Data Radiologic Study: Attestation: I personally reviewed and interpreted this imaging study as follows: Imaging: X-Ray Radiologist's impression: PROCEDURE INFORMATION: Exam: XR Right Knee Exam date and time: 02/27/2021 12:26 PM Age: 80 years old Clinical indication: Injury or trauma; Blunt trauma; Knee; Right; Injury date: 02/26/21; Injury details: Slipped on ice, fall/twist TECHNIQUE: Imaging protocol: XR Right knee. Views: 4 or more views. COMPARISON: No relevant prior studies available. FINDINGS: Bones/joints: No fracture, dislocation or other acute bone or joint abnormalities are seen. There is chronic spurring on the patella. A tiny calcification projects on the distal quadriceps tendon which is probably chronic. Soft tissues: There is soft tissue swelling anterior to the knee. Vasculature: There is atherosclerotic calcification of the popliteal artery. IMPRESSION: Soft tissue swelling. No acute bony abnormality HPI General Mode of arrival: ambulatory . Date/Time Provider Initiated Documentation: 02/27/21 12:02 . Limitations to Documentation: no limitations . Information obtained by: patient . HPI Narrative: This is a 80-year-old gentleman, not anticoagulated, presenting for a right knee injury that he sustained last night after mechanical fall. Reports feeling and hearing a tearing-ripping sensation. Is able to bear weight but movement and weightbearing is more painful. Very little discomfort at rest. Denies any other injuries, striking his head, numbness, tingling, weakness. He is using crutches to help ambulate. Patient reports that he was unable to bear weight last night but now can bear weight. He has not taken any svrn-mwt-bbyromp medications for symptomatic control. Denies any hip pain or ankle pain. Related Data Home Medications Medication Instructions Recorded Confirmed ascorbic acid (vitamin C) 1,000 mg PO DAILY 06/06/12 02/27/21 calcium carbonate-vit D3-min 1 ea PO 06/06/12 12/31/20 ibuprofen 400 mg PO Q6H PRN tab-cap 06/06/12 02/27/21 multivitamin [Daily Vitamin] 1 ea PO DAILY 06/06/12 02/27/21 aspirin 81 mg tablet,delayed 81 mg PO DAILY 04/30/18 02/27/21 release atorvastatin 40 mg tablet 40 mg PO DAILY 04/30/18 02/27/21 zaleplon 5 mg capsule See Rx Instructions PO .QHS PRN 05/07/19 02/27/21 cap mecobalamin (vitamin B12) 1,000 1,000 mcg PO DAILY 06/13/19 02/27/21 mcg chewable tablet amlodipine 10 mg tablet 10 mg PO DAILY 10/07/19 02/27/21 carvedilol 6.25 mg tablet 6.25 mg PO BID 10/07/19 02/27/21 losartan 100 mg tablet 100 mg PO DAILY 10/07/19 02/27/21 scopolamine base 1 mg over 3 days 1 patch TRANSDERMAL Q72H PRN #10 ea 09/23/20 02/27/21 transdermal patch venlafaxine 75 mg capsule,extended 75 mg PO DAILY #45 cap 11/19/20 02/27/21 release 24 hr bupropion HCl 150 mg 24 hr tablet, See Rx Instructions PO QAM #90 12/25/20 02/27/21 extended release tab-cap MDD 450 mg bupropion HCl 300 mg 24 hr tablet, See Rx Instructions PO QAM #90 tab 12/25/20 02/27/21 extended release MDD 450 mg naproxen sodium 220 mg tablet See Rx Instructions PO BID PRN 12/25/20 02/27/21 pantoprazole 20 mg tablet,delayed 20 mg PO DAILY #90 tab-cap 12/25/20 02/27/21 release sildenafil 50 mg tablet 50 mg PO DAILY PRN #10 tab 01/18/21 02/27/21 Previous Rx's Medication Instructions Recorded scopolamine base 1 mg over 3 days 1 patch TRANSDERMAL Q72H PRN #10 ea 09/23/20 transdermal patch venlafaxine 75 mg capsule,extended 75 mg PO DAILY #45 cap 11/19/20 release 24 hr bupropion HCl 150 mg 24 hr tablet, See Rx Instructions PO QAM #90 12/25/20 extended release tab-cap MDD 450 mg bupropion HCl 300 mg 24 hr tablet, See Rx Instructions PO QAM #90 tab 12/25/20 extended release MDD 450 mg pantoprazole 20 mg tablet,delayed 20 mg PO DAILY #90 tab-cap 12/25/20 release sildenafil 50 mg tablet 50 mg PO DAILY PRN #10 tab 01/18/21 Allergies Allergy/AdvReac Type Severity Reaction Status Date / Time triamcinolone [From Kenalog] Allergy Verified 02/27/21 12:02 simvastatin AdvReac Mild Myalgia Verified 02/27/21 12:02 cats Allergy Uncoded 02/27/21 12:02 General Stated Complaint: Orthopedic ELVI: 4 Review of Systems Constitutional Constitutional: Denies headache(s) and Denies weakness Eyes Eyes: Denies change in vision ENT Ears, Nose, Mouth, and Throat: Denies headache(s) and Denies neck pain Cardiovascular Cardiovascular: Denies chest pain and Denies dyspnea Respiratory Respiratory: Denies dyspnea Gastrointestinal Gastrointestinal: Denies abdominal pain, Denies nausea and Denies vomiting Musculoskeletal Musculoskeletal: Denies back pain, Denies deformity, Reports arthralgias, Denies neck pain, Denies numbness, Reports stiffness and Denies tingling Integumentary/Breasts Skin/Breast: Denies rash Neurologic Neurologic: Denies headache(s), Denies numbness, Denies tingling and Denies weakness Hematologic/Lymphatic Hematologic/Lymphatic: Denies easy bleeding and Denies easy bruising [facility] All Active Problems Knee pain, right (Acute) Impacted cerumen, bilateral (Acute) Chronic low back pain (Acute) Insomnia (Acute) NK note from 11/25/20 Nodule of skin of back (Acute) Ascending aorta dilatation (Chronic) Incomplete right bundle branch block (Acute) 12-lead EKG [facility] Marked sinus bradycardia. 11/20/19 Lightheadedness (Chronic) [facility] Neuro; 09/03/2019: felt to be multifactorial; 11/2019: [facility] Cardiology orders Ziopatch for left atrial dilation, no arrhythmia, no treatment, return to Neuro in one year Imbalance (Acute) Depression (Chronic) Abnormal cardiovascular stress test (Acute 04/19/18) note dated 03/13/19 [facility] Horizontal depressions 1.5-2mm V3-V6, negative myocardial perfusion defects Tinnitus, bilateral (Acute) Diverticulosis (Chronic) 09/14/2017 colonoscopy ([facility]) Seborrheic dermatitis (Chronic) Sensorineural hearing loss of both ears (Chronic) WALKER (dyspnea on exertion) (Chronic) 04/27/18 [facility] Cardiology Mitral valve insufficiency (Chronic) 04/03/2018 echo Vitreous degeneration of both eyes (Chronic) Moderate tricuspid valve regurgitation (Chronic) 04/03/2018 echo Moderate aortic valve regurgitation (Chronic) 04/03/2018 echo 10/09/19 [facility] Echo Severe obstructive sleep apnea (Chronic) CPAP; [facility] Sleep Medicine (Tereza Hernandez APRN) 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; hypnotic use Other and unspecified hyperlipidemia (Chronic 05/10/11) PCEq risk 26%; LDL baseline 170; 03/2018 labs: good response to statin t herapy, continue Male erectile disorder (Chronic 03/21/13) IFG (impaired fasting glucose) (Chronic 01/24/17) Essential hypertension (Chronic 05/10/11) Allergic rhinitis, unspecified (Chronic 05/10/11) Medical History Achilles tendinitis (11/21/13) Basal cell carcinoma (~10/2020) rgt shoulder Bladder tumor (06/30/14) S/p bladder and prostate surgery Dermatophytosis of nail (05/10/11) 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: split thickness skin graft to left posterior scalp with harvest from right posterior thigh Primary malignant neoplasm of prostate (Unknown) prostatectomy 01/03/05 Tubular adenoma (08/18/14) Surgical History Colonoscopy - IV Sedation (12/20/04) w/ bx with both 09/14/17 [facility] endoscopy- colonoscopy 3 polyps Colonoscopy - IV Sedation (07/31/14) w/ bx with both 09/14/17 [facility] endoscopy- colonoscopy 3 polyps Cystoscopy (11/24/16) [facility]-Dr Padgett and 03/24/17 04/08/20-[facility] H/O basal cell carcinoma excision (~10/2020) right shoulder History of right inguinal hernia repair 03/23/18 Dr Hermes Banks [facility] General Surgery Status post prostatectomy (~2004) Social History Smoking/Tobacco Use Status: Former Tobacco Use Smoking risk assessment performed?: Yes Alcohol Intake: current Alcohol Intake frequency: 3 or more drinks per day Alcohol type: wine Drug use: Never Substance use type: does not use Caregiver/Support person: No Household members: spouse Number of Children: 3 Communication Needs: None 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 Pets and animals: No What type of physical activity do you participate in: bicycling and regular exercise Duration: 60-90 minutes/day Frequency: daily Seatbelt use: always Water heater temp set <120 deg: Yes Working smoke detector in home: Yes Fire extinguisher in home: Yes Carbon monox detector in home: Yes Firearms in home: Yes Firearms unloaded and locked: Yes Do you feel safe at home: Yes Do you feel safe in your relationship?: Yes Exam Const General: cooperative, healthy appearing, comfortable and no acute distress Orientation: alert and awake [facility] Head: normal to inspection, normocephalic and atraumatic Eyes General: appearance normal, both eyes and all related structures Conjunctivae: conjunctivae normal Neck Neck: normal visual inspection, trachea midline and supple Resp Effort & Inspection: normal respiratory effort and able to speak in complete se ntences Cardio Rate: regular rate Rhythm: regular rhythm Skin General skin exam: no rashes or lesions noted Neuro General: patient alert, patient awake, moves all extremities and no focal motor deficits Cognition: normal cognition Speech: speech normal Gait: antalgic and gait assisted Method: crutches Motor: muscle tone normal throughout Sensory Exam: no sensory deficits noted Extrem Knee images: 1. Diffuse ecchymosis, swelling, tenderness. Full range of motion. 5 out of 5 strength. Neuro, vascular, tendon intact. Knee appears stable. Increased pain with pleat extension. There is no bony point tenderness or deformity. Skin is intact. Normal pedal pulse and capillary refill. Psych Appearance: grossly normal Mental Status: mental status grossly normal Course Vital Signs Vital signs: Vital Signs Temperature 36.7 C 02/27/21 11:59 Pulse 81 02/27/21 11:59 Respiratory Rate 12 02/27/21 11:59 Blood Pressure 160/86 H 02/27/21 11:59 Pulse Oximetry 96 02/27/21 11:59 Temperature 36.7 C 02/27/21 11:59 Temperature Source Temporal Artery Scan 02/27/21 11:59 Pulse 81 02/27/21 11:59 Respiratory Rate 12 02/27/21 11:59 Respiratory Effort Non-Labored 02/27/21 12:01 Blood Pressure 160/86 H 02/27/21 11:59 Blood Pressure Position Sitting 02/27/21 11:59 Pulse Oximetry 96 02/27/21 11:59 Oxygen Delivery Method Room Air 02/27/21 11:59 Oxygen Flow Rate 0 02/27/21 11:59 Pain Level 1 02/27/21 11:59 PAWSS Have you Been Recently Intoxicated or Drunk Within the Last 30 days?: No Have you Ever Experienced Previous Episodes of Alcohol Withdrawal?: No Have you ever Experienced Withdrawal Seizures?: No Have you ever Experienced Delirium Tremens(DT)s?: No Have you ever undergone Alcohol Rehabilitation Treatment (i.e, inpt ot outpatient treatment programs)?: No Have you ever Experienced Blackouts?: No Have you ever Combined Alcohol with other Downers within the last 90 days?: No Have you ever Combined Alcohol with any other Substance of Abuse during the last 90 days?: No Positive Blood Alcohol level on Presentation? [PCS.BAL]: No Evidence of Increased Autonomic Activity (i.e. HR>120, tremor, sweating, agitation, nausea)?: No Result: 0
--- NOTE | 2021-02-27 12:50 | DI.RAD_ITS ---
Exam(s) XR KNEE RT 4V+ EXAM: XR KNEE RT 4V+ CLINICAL HISTORY: fall/twist injury. TECHNIQUE: 2D digital imaging was performed. COMPARISON: No exams were available for comparison FINDINGS: There is prominent soft tissue swelling anterior to the patella and quadriceps. There is no patellar displacement. There is, however, a 5 x 3 millimeter calcific density located 5 cm above the patella which may be related to the quadriceps tendon. There are no fracture lines in the patella nor in th e other bones there is no obvious intra-articular joint effusion. No obvious degenerative changes. IMPRESSION: Anterior soft tissue swelling. Correlation with any clinical signs of quadriceps injury recommended. No evidence of fracture or obvious intra-articular joint effusion. DATA REPOSITORY: RADIATION DOSE DELIVERED:
--- NOTE | 2021-02-27 13:02 | DI.VRAD_ITS ---
PROCEDURE INFORMATION: Exam: XR Right Knee Exam date and time: 02/27/2021 12:26 PM Age: 80 years old Clinical indication: Injury or trauma; Blunt trauma; Knee; Right; Injury date: 02/26/21; Injury details: Slipped on ice, fall/twist TECHNIQUE: Imaging protocol: XR Right knee. Views: 4 or more views. COMPARISON: No relevant prior studies available. FINDINGS: Bones/joints: No fracture, dislocation or other acute bone or joint abnormalities are seen. There is chronic spurring on the patella. A tiny calcification projects on the distal quadriceps tendon which is probably chronic. Soft tissues: There is soft tissue swelling anterior to the knee. Vasculature: There is atherosclerotic calcification of the popliteal artery. IMPRESSION: Soft tissue swelling. No acute bony abnormality. Dictated and Authenticated by: Wyatt Harris MD. Ordering:JAIRON Rivera MD
== END 2021-02-27 13:31 | disposition home or self-care (01) ==
PROVIDERS: Emergency Provider Physician Assistant; PCP Nurse Practitioner Family
DX: M25.561 Pain in right knee (principal); W00.0XXA Fall on same level due to ice and snow, initial encounter
CPT/HCPCS: 99283; 73564

== ENCOUNTER → 2021-03-08 09:22 | Outpatient (BNVA) | payer MEDICARE, SELFPAY | PROVIDERS: PCP Nurse Practitioner Family; Referring Provider Nurse Practitioner Family | DX: S76.111A Strain of right quadriceps muscle, fascia and tendon, initial encounter (principal); W00.0XXA Fall on same level due to ice and snow, initial encounter | CPT/HCPCS: 99214 ==

== ENCOUNTER 2021-03-10 00:48 | Outpatient (CLI) | payer MEDICARE, SELFPAY ==
--- NOTE | 2021-03-10 06:45 | DI.MRI_ITS ---
Exam(s) MR LOWER JOINT RT WO EXAM: MR LOWER JOINT RT WO CLINICAL HISTORY: PAIN, ?RUPTURE QUAD TENDON, S76.111A TECHNIQUE: Multiplanar multisequence MRI of the knee was performed. COMPARISON: CR,XR XR KNEE RT 4V+ from 02/27/2021 FINDINGS: EFFUSION: There is prominent prepatellar fluid as well as moderate-sized joint effusion. This appear s to be related to extensor compartment findings. There is abundant subcutaneous edema surrounding t he entire knee. MARROW:There is no evidence of fracture, bone contusion, nor osteochondral defects.. There are no si gnificant osseous lesions. PATELLOFEMORAL COMPARTMENT: There is full-thickness tearing of the quadriceps tendon, tear being most evident approximately 1.5 cm above the patella. There is some preservation of the tendon left of ce nter. Prominent muscle injury signal both evident in the vastus medialis and vastus lateralis.. The patellar ligament is intact. There is no significant patellar displacement and no abnormal intra pa tellar intraosseous signal abnormality. There is no significant thinning of the retropatellar cartilage. No evidence of fissure nor signific ant chondral defect. No osteochondral defect at this level. CRUCIATE LIGAMENTS: The anterior cruciate ligament exhibits some degenerative signal but is otherwise intact.The posterior cruciate ligament is intact. MEDIAL COMPARTMENT/MEDIAL MENISCUS: Sagittal images there is suggestion of some undersurface tearing of the posterior horn of the medial meniscus, this being less impressive on the coronal images. The meniscal root is intact. Anterior horn unremarkable.No significant extrusion nor intrusion.. Mild degenerative cartilage changes over the medial femoral condyle. No large defects. No osteochon dral defects. No osteophytes in the medial compartment. MEDIAL COLLATERAL LIGAMENT: The MCL proper is intact. LATERAL COMPARTMENT/LATERAL MENISCUS: There is no evidence of lateral meniscal tear.There are no fortino dral defects, osteochondral defects, subarticular marrow edema, nor osteophytes evident. ILIOTIBIAL BAND: Intact LATERAL COLLATERAL LIGAMENT COMPLEX: The fibular collateral ligament is intact. The biceps femoris t endon is intact.There is signal abnormality consistent with intramuscular tearing within the popliteu s muscle extending to the musculotendinous junction. However, there is no tear of the popliteus tend on nor prominent tenosynovitis. No evidence of other posterior muscle tears. IMPRESSION: 1. There is high-grade tear of the quadriceps tendon, as described above. Prominent surrounding flui d/hematoma. No evidence of patellar fracture and the patellar ligament is intact. There is signific ant muscle injury signal in the vastus medialis. Also some in the vastus lateralis. No evidence of high-grade tear of the MCL nor of the iliotibial band. 2. There is partial tearing of the popliteus muscle component of the lateral collateral ligament comp denise, without a high-grade tear of its tendon. The other components of the lateral collateral ligamen t complex including the biceps femoris tendon and fibular collateral ligament appear intact, as does the fibular styloid attachment site of these components of the LCL complex. 3. Mild undersurface tearing noted in the lateral aspect of the posterior horn of the medial meniscus . No tears of the lateral meniscus. 4. Some degenerative signal in the ACL but no high-grade tear of this structure. PCL is intact. 5. There is a moderate-sized joint effusion which appears to be in continuity with the prepatellar f luid through the tearing in the quadriceps. There is no Pleitez cyst in the popliteal fossa. DATA REPOSITORY:
== END 2021-03-10 01:08 ==
PROVIDERS: PCP Nurse Practitioner Family; Visit Provider Student in an Organized Health Care Education/Training Program
DX: M25.561 Pain in right knee (principal); S76.111A Strain of right quadriceps muscle, fascia and tendon, initial encounter; S83.421A Sprain of lateral collateral ligament of right knee, initial encounter; S83.241A Other tear of medial meniscus, current injury, right knee, initial encounter; M25.461 Effusion, right knee; X58.XXXA Exposure to other specified factors, initial encounter
CPT/HCPCS: 73721; 99214

== ENCOUNTER → 2021-03-10 14:23 | Outpatient (BNVA) | payer MEDICARE, SELFPAY | PROVIDERS: PCP Nurse Practitioner Family; Referring Provider Nurse Practitioner Family; Visit Provider Student in an Organized Health Care Education/Training Program | DX: S76.111D Strain of right quadriceps muscle, fascia and tendon, subsequent encounter (principal); W00.0XXD Fall on same level due to ice and snow, subsequent encounter; I10 Essential (primary) hypertension | CPT/HCPCS: 99214 ==

== ENCOUNTER 2021-03-10 16:57 | Outpatient (REF) | payer MEDICARE, SELFPAY ==
[2021-03-10 16:04] LABS: Source Nasal/Nares
--- NOTE | 2021-03-10 17:33 | W.ANESCON ---
General Date of Service Date of Service: 03/10/21 Reason for Consult Requesting Provider: Daniel Gage How Consult Conducted:: Chart Review Reason for Consult:: Patient with traumatic quadriceps tendon tear. Patient with significant past cardiac history including valvular insufficiency, aortic dilation, and abnormal stress tests. Patient followed by [facility] cards and was recently seen by Dr. Villagran at that practice with reporst of orthostatsis and chest pressure when exercising. Consult Recommendation after Review:: Echocardiogram stable. Dr. Villagran ordered a nuclear stress test which does not appear to be completed. Patient is tentatively on hold until further discussion with Anesthesia colleagues and further investigation into his stress test status. Please hold his place on this fridays schedule as I am hoping this will be cleared quickly tomorrow morning. Meds Allergies and Home Medications Allergies Allergy/AdvReac Type Severity Reaction Status Date / Time triamcinolone [From Kenalog] Allergy Verified 03/10/21 14:44 simvastatin AdvReac Mild Myalgia Verified 03/10/21 14:44 cats Allergy Uncoded 03/10/21 14:44 Home Medication Medication Instructions Recorded ascorbic acid (vitamin C) 1,000 mg PO DAILY 06/06/12 calcium carbonate-vit D3-min 1 ea PO 06/06/12 ibuprofen 400 mg PO Q6H PRN tab-cap 06/06/12 multivitamin [Daily Vitamin] 1 ea PO DAILY 06/06/12 aspirin 81 mg tablet,delayed 81 mg PO DAILY 04/30/18 release atorvastatin 40 mg tablet 40 mg PO DAILY 04/30/18 zaleplon 5 mg capsule See Rx Instructions PO .QHS PRN 05/07/19 cap mecobalamin (vitamin B12) 1,000 1,000 mcg PO DAILY 06/13/19 mcg chewable tablet amlodipine 10 mg tablet 10 mg PO DAILY 10/07/19 carvedilol 6.25 mg tablet 6.25 mg PO BID 10/07/19 losartan 100 mg tablet 100 mg PO DAILY 10/07/19 scopolamine base 1 mg over 3 days 1 patch TRANSDERMAL Q72H PRN #10 ea 09/23/20 transdermal patch venlafaxine 75 mg capsule,extended 75 mg PO DAILY #45 cap 11/19/20 release 24 hr bupropion HCl 150 mg 24 hr tablet, See Rx Instructions PO QAM #90 12/25/20 extended release tab-cap MDD 450 mg bupropion HCl 300 mg 24 hr tablet, See Rx Instructions PO QAM #90 tab 12/25/20 extended release MDD 450 mg naproxen sodium 220 mg tablet See Rx Instructions PO BID PRN 12/25/20 sildenafil 50 mg tablet 50 mg PO DAILY PRN #10 tab 01/18/21 fluocinonide 0.05 % topical cream 1 applic TOPICAL BID-QID PRN #15 g 03/03/21 pantoprazole 20 mg tablet,delayed 20 mg PO DAILY #90 tab-cap 03/03/21 release Wheelchair with right leg extension #1 ea 03/10/21 [facility] Active Problems Active Problems: Problem Status Onset Code Rupture of right quadriceps tendon 02/26/21 S76.111A Impacted cerumen, bilateral H61.23 Chronic low back pain M54.50, G89.29 Insomnia G47.00 Nodule of skin of back R22.2 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 Incomplete right bundle branch block I45.10 Lightheadedness R42 Imbalance R26.89 Depression F32.9 Abnormal cardiovascular stress test 04/19/18 R94.39 Tinnitus, bilateral H93.13 Diverticulosis K57.90 Seborrheic dermatitis L21.9 Sensorineural hearing loss of both ears H90.3 WALKER (dyspnea on exertion) R06.09 Mitral valve insufficiency I34.0 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 Moderate tricuspid valve regurgitation I07.1 Moderate aortic valve regurgitation I35.1 Severe obstructive sleep apnea G47.33 Psychophysiologic insomnia F51.04 Other and unspecified hyperlipidemia 05/10/11 E78.5 Male erectile disorder 03/21/13 N52.9 IFG (impaired fasting glucose) 01/24/17 R73.01 Essential hypertension 05/10/11 I10 Allergic rhinitis, unspecified 05/10/11 J30.9 Medical History Medical History Achilles tendinitis (11/21/13) Basal cell carcinoma (~10/2020) rgt shoulder Bladder tumor (06/30/14) S/p bladder and prostate surgery Dermatophytosis of nail (05/10/11) 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: split thickness skin graft to left posterior scalp with harvest from right posterior thigh Primary malignant neoplasm of prostate (Unknown) prostatectomy 01/03/05 Tubular adenoma (08/18/14) Surgical History Surgical History Colonoscopy - IV Sedation (12/20/04) w/ bx with both 09/14/17 [facility] endoscopy- colonoscopy 3 polyps Colonoscopy - IV Sedation (07/31/14) w/ bx with both 09/14/17 [facility] endoscopy- colonoscopy 3 polyps Cystoscopy (11/24/16) [facility]-Dr Padgett and 03/24/17 04/08/20-[facility] H/O basal cell carcinoma excision (~10/2020) right shoulder History of right inguinal hernia repair 03/23/18 Dr Hermes Banks [facility] General Surgery Status post prostatectomy (~2004) Tobacco Smoking/Tobacco Use Status: Former Tobacco Use Alcohol Alcohol Intake: current Alcohol intake frequency: 3 or more drinks per day Alcohol type: wine Substance Use Substance use: Never Substance use type: does not use Vital Signs & Lab Results Point of Care Results Nursing Point of Care Results: No Data to Display Lab Results Blood Type / Crossmatch: No Data to Display Complete Blood Count: No Data to Display Complete Metabolic Panel: No Data to Display Liver Function Panel: No Data to Display Coagulation Panel: No Data to Display Cardiac Panel: No Data to Display Arterial Blood Gas: No Data to Display Venous Blood Gas: No Data to Display Pancreas Panel: No Data to Display Thyroid Panel: No Data to Display Infectious Disease: Coronavirus (COVID-19)(PCR) Negative (Negative) 02/15/21 08:57 02/15/21 Coronavirus 2019 Source Nasal/Nares 03/10/21 15:25 03/10/21 Blood Cultures: No Data to Display Toxicology Panel: No Data to Display Imaging and Studies Imaging and Studies Stress Test Summary: 04/11/2018 Impressions: Normal perfusion and contraction by Tc99m Sestamibi Imaging. Summary: 1. Myocardial perfusion imaging: No myocardial perfusion defects noted. 2. The calculated left ventricular ejection fraction after stress: 55%. LV global systolic function is normal. No left ventricular regional motion abnormality. 3. Stress ECG conclusions: The stress ECG is positive. Maximal ST change occurred during the exercise phase. Stress ECG change: horizontal depression. Severity: 1.5-2.0mm. In lead groups: V3, V4, V5 and V6. Rare atrial ectopy. 4. Stress: The target heart rate was achieved. There is resting hypertension with an appropriate response to stress. The patient experienced no chest pain during stress. Exercise capacity is above normal for age. Echocardiogram Summary: 02/11/2021 at [facility] SUMMARY: 1. The left ventricular chamber size is normal. There is normal global left ventricular systolic function. The quantitative left ventricular ejection fraction by biplane Ugarte's method is 66%. There are no left ventricular segmental wall motion abnormalities. 2. The right ventricle is normal in size. Right ventricular global systolic function is normal. The estimated pulmonary artery systolic pressure is 28 mmHg. 3. The left atrium is moderately dilated. 4. The aortic valve is tricuspid. Mild to moderate (1-2+/4+) aortic valve regurgitation is present. 5. There is moderate dilatation of the ascending aorta (4.2 cm). There is mild dilatation of the aortic root. 6. There is no significant change in comparison to a prior study dated 10/09/2019.
[2021-03-10 18:27] LABS: COVID-19 PCR Negative (Negative)
== END 2021-03-10 16:58 | disposition home or self-care (01) ==
LOC: LBN 16:57
PROVIDERS: PCP Nurse Practitioner Family; Visit Provider Student in an Organized Health Care Education/Training Program
DX: Z20.822 Contact with and (suspected) exposure to COVID-19 (principal); Z01.818 Encounter for other preprocedural examination
CPT/HCPCS: 87635

== ENCOUNTER 2021-03-11 08:21 | Outpatient (CLI) | payer MEDICARE, SELFPAY | END 2021-03-11 08:22 | disposition home or self-care (01) | LOC: DI.KIM 08:23 | PROVIDERS: PCP Nurse Practitioner Family; Visit Provider Nurse Practitioner Family | DX: R69 Illness, unspecified (principal) | CPT/HCPCS: 93010 ==

== ENCOUNTER 2021-06-23 01:45 | Outpatient (CLI) | payer MEDICARE, SELFPAY ==
--- OUTSIDE RECORDS SUMMARY | 2021-06-23 01:47 | XMS_ITS ---
:1940 Author Care Team Providers Name Role Phone SPEEDY PIZARRO [facility] Primary Care Provider [phone] [facility] OTHER [phone] [facility] OTHER [phone] Allergies Code Code System Name Reaction Severity Status Onset 964229 RxNorm CAT'S CLAW ? ? Active ? 61210 RxNorm Simvastatin ? ? Active ? Medications Name Status Start Date Stop Date ? ? acetazolamide Active ? Not available 250mg BID amlodipine 5 mg tablet Active ? Not avail able Take 2 tablets every day by oral route. ascorbic acid(vitamin C)(bulk) Active ? N ot available 1000mg daily aspirin Completed ? 11/14/2017 81mg daily aspirin 80 mg chewable tablet Active ? No t available Take 1 tablet every day by oral route. atorvastatin Active ? Not available 40mg daily bupropion HCl 150 mg tablet,12 hr sustained-release(smoking dete rrent) Active ? Not available Take 1 tablet twice a day by oral route. calcium carb-vit D3-minerals 600 mg calcium-200 unit tablet Acti ve ? Not available Take every day by oral route. carvedilol 6.25 mg tablet Active ? Not av ailable Take 1 tablet twice a day by oral route. clotrimazole-betamethasone Active ? Not a vailable 1 thin layer BID cyclobenzaprine 5 mg tablet Active ? Not available Take 1 tablet 3 times a day by oral route. fexofenadine Active ? Not available 180mg daily PRN hydrochlorothiazide Completed ? 05/07/2019 25mg daily ibuprofen Active ? Not available 200mg Q6hrs PRN lisinopril Completed ? 04/30/2018 10mg daily losartan 50 mg tablet Active ? Not availa ble Take 2 tablets every day by oral route. multivitamin Active ? Not available daily potassium Completed ? 05/07/2019 10mg daily pravastatin Completed ? 04/30/2018 20mg daily scopolamine base Active ? Not available 1.5mg venlafaxine 75 mg tablet Active ? Not true ilable Take 1 tablet every day by oral route. zaleplon Completed ? 01/01/2018 5mg daily zaleplon 5 mg capsule Active ? Not availa ble Take 1-2 po qhs prn Zoloft Completed ? 04/30/2018 Problems Name Status Onset Date Source ? Onychomycosis Active 11/07/2017 ? Carcinoma of Prostate Active 11/07/2017 ? Adenoma Active 11/07/2017 ? Neoplasm of Bladder Active 11/07/2017 ? Hyperlipidemia Active 11/07/2017 ? Obesity Active 11/07/2017 ? Hypertensive Disorder Active 11/07/2017 ? Rhinitis Active 11/07/2017 ? Allergic Rhinitis Active 11/07/2017 ? Primary Erectile Dysfunction Active 11/07/2017 ? Achilles Tendinitis Active 11/07/2017 ? Fingernail Injury Active 11/07/2017 ? On Examination - Smell Abnormal Active 11/07/2017 ? Overweight Active ? History Psychophysiologic Insomnia Active ? Histo ry Insomnia Active ? ? Obstructive Sleep Apnea Syndrome Active ? ? Dyspnea Active ? History Snoring Active ? History Procedures Date Name Performed by ? ? Hernia Repair Information not avai lable Results Lab Results None recorded. 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 Social History Tobacco Smoking Status Former Smoker Notes: quit in 1981 Vaccine List None recorded. Plan of Care Reminders Provider Appointments None ? ? recorded. Lab None ? ? recorded. Referral None ? ? recorded. Procedures None ? ? recorded. Surgeries None ? ? recorded. Imaging None ? ? recorded. Vitals 11/25/2020 09:30AM Office 30 Height Weight BMI Blood Pressure 162.56 cm 81.65 kg 30.9 kg/m2 130/70 mm[Hg] 10/14/2019 01:15PM Office 30 Height Weight BMI Blood Pressure 162.56 cm 83.46 kg 31.6 kg/m2 110/62 mm[Hg] 05/07/2019 09:15AM Office 30 Height Weight BMI Blood Pressure 162.56 cm 81.87 kg 31 kg/m2 132/72 mm[Hg] 07/17/2018 12:30PM Office 30 Height Weight BMI Blood Pressure 162.56 cm 80.47 kg 30.5 kg/m2 122/62 mm[Hg] 04/30/2018 01:30PM Office 15 Height Weight BMI Blood Pressure 162.56 cm 81.78 kg 30.9 kg/m2 140/68 mm[Hg] 01/01/2018 01:45PM Office 30 Height Weight BMI Blood Pressure 162.56 cm 81.1 kg 30.7 kg/m2 130/62 mm[Hg] 11/14/2017 09:30AM Office 30 Height Weight BMI Blood Pressure 162.56 cm 81.06 kg 30.7 kg/m2 140/88 mm[Hg] 05/18/2017 Height Weight Blood Pressure 162.56 cm 75.07 kg 122/80 mm[Hg] 11/17/2016 Height Weight Blood Pressure 162.56 cm 78.47 kg 140/68 mm[Hg] 04/25/2016 Height Weight Blood Pressure 162.56 cm 83.97 kg 138/84 mm[Hg] 09/26/2013 Height Weight Blood Pressure 162.56 cm 78.5 kg 132/72 mm[Hg]
[2021-06-23 12:28] LABS: Abs Immature Grans 0.02 10^3/uL (0.0-0.06); Absolute Basophil Count 0.03 10^3/uL (0.0-0.2); Absolute Eosinophil Count 0.74 10^3/uL (0.0-0.7); Absolute Lymphocyte Count 1.54 10^3/uL (1.2-3.4); Absolute Monocyte Count 0.86 10^3/uL (0.1-0.8); Basophils % 0.4; Eosinophils % 10.9; HCT 40.5 % (40.0-50.0); HGB 13.6 g/dL (13.5-17.5); Immature Grans % 0.3; Lymphocytes % 22.7; MCH 32.3 pg (27.0-33.0); MCHC 33.6 % (32.0-36.0); MCV 96 fL (80-95); MPV 9.9 fL (8.0-11.0); Monocytes % 12.7; Platelet Count 269 10^3/uL (130-400); RBC 4.21 10^6/uL (4.36-5.78); RDW 14.7 % (11.8-14.1); RDW-SD 52.1 fL; Reticulocyte 1.5 % (0.5-2.4); WBC 6.79 10^3/uL (4.4-10.8)
[2021-06-23 14:17] LABS: ALT 34 U/L (16-63); AST 21 U/L (15-37); Albumin 4.2 g/dL (3.4-5.0); Alkaline Phosphatase 61 U/L (46-116); Anion Gap 9.4 mmol/L (3-11); BUN 16 mg/dL (7-18); Bilirubin, Total 0.7 mg/dL (0.2-1.0); CO2 27.6 mmol/L (21.0-32.0); CREATININE 0.9 mg/dL (0.70-1.30); Calcium 8.8 mg/dL (8.5-10.1); Chloride 103 mmol/L (98-107); Ferritin 236 ng/mL (26-388); Glucose 104 mg/dL (74-106); Iron 124 ug/dL (65-175); Potassium 4.6 mmol/L (3.5-5.1); Sodium 140 mmol/L (136-145); TSH (W/Ref FT4) 1.18 uIU/mL (0.36-3.74); Total Iron Binding Capacity 245 ug/dL (250-450); Transferrin Sat 51 % (20-55); Vitamin B12 464 pg/mL (193-986)
[2021-06-23 14:19] LABS: Folate > 20.0 ng/mL (8.6-20.0)
[2021-06-24 14:54] LABS: Albumin 63.5 % (55.8-66.1); Albumin g/dL 4.3 g/dL (3.6-5.2); Total Protein 6.8 g/dL (6.3-8.2)
== END 2021-06-23 01:46 | disposition home or self-care (01) ==
LOC: LBO 01:46
PROVIDERS: PCP Nurse Practitioner Family; Visit Provider Nurse Practitioner Family
DX: D64.9 Anemia, unspecified (principal); R53.83 Other fatigue; R20.2 Paresthesia of skin
CPT/HCPCS: 36415; 80053; 82668; 82607; 82728; 82746; 83540; 83550; 84165; 84443; 85025; 85045

== ENCOUNTER 2022-06-15 02:39 | Outpatient (CLI) | payer MEDICARE, SELFPAY ==
[2022-06-15 09:58] LABS: Abs Immature Grans 0.02 10^3/uL (0.0-0.06); Absolute Basophil Count 0.02 10^3/uL (0.0-0.2); Absolute Eosinophil Count 0.34 10^3/uL (0.0-0.7); Absolute Lymphocyte Count 1.36 10^3/uL (1.2-3.4); Absolute Monocyte Count 0.69 10^3/uL (0.1-0.8); Absolute Neutrophil Count 3.21 10^3/uL (1.2-6.7); Basophils % 0.4; HCT 38.8 % (40.0-50.0); HGB 13.3 g/dL (13.5-17.5); Immature Grans % 0.4; Lymphocytes % 24.1; MCH 32.4 pg (27.0-33.0); MCHC 34.3 % (32.0-36.0); MCV 95 fL (80-95); MPV 9.8 fL (8.0-11.0); Monocytes % 12.2; Neutrophils % 56.9; Platelet Count 231 10^3/uL (130-400); RDW 13.2 % (11.8-14.1); RDW-SD 45.3 fL; WBC 5.64 10^3/uL (4.4-10.8)
[2022-06-15 10:17] LABS: Hemoglobin A1C 5.6 % (<5.7)
[2022-06-15 10:24] LABS: ALT 34 U/L (16-63); AST 19 U/L (15-37); Albumin 3.7 g/dL (3.4-5.0); Alkaline Phosphatase 58 U/L (46-116); Anion Gap 7.4 mmol/L (3-11); BUN 19 mg/dL (7-18); Bilirubin, Total 0.7 mg/dL (0.2-1.0); CO2 29.6 mmol/L (21.0-32.0); CREATININE 1.1 mg/dL (0.70-1.30); Calcium 8.8 mg/dL (8.5-10.1); Calculated LDL 82 mg/dL (<100); Chloride 104 mmol/L (98-107); Cholesterol 183 mg/dL (<200); Estimated GFR 67.86 (mL/min/1.73m2); Glucose 115 mg/dL (74-106); HDL Cholesterol 95 mg/dL (40-60); Potassium 4.6 mmol/L (3.5-5.1); Sodium 141 mmol/L (136-145); Triglyceride 34 mg/dL (<150)
[2022-06-15 18:27] LABS: PSA, Screening <0.1 ng/mL (<=6.5)
== END 2022-06-15 02:40 | disposition home or self-care (01) ==
PROVIDERS: PCP Nurse Practitioner Family; Referring Provider Nurse Practitioner Family; Visit Provider Nurse Practitioner Family
DX: D64.9 Anemia, unspecified (principal); I10 Essential (primary) hypertension; R73.01 Impaired fasting glucose; E78.5 Hyperlipidemia, unspecified; Z12.5 Encounter for screening for malignant neoplasm of prostate
CPT/HCPCS: 36415; 80053; 80061; 84153; 83036; 85025

== ENCOUNTER 2022-12-30 19:37 | Outpatient (REF) | payer MEDICARE, SELFPAY ==
--- NOTE | 2022-12-30 20:43 | DI.RAD_ITS ---
Exam(s) XR CHEST 2V PA LATERAL EXAM: XR CHEST 2V PA LATERAL CLINICAL HISTORY: DYSPNEA ON EXERTION TECHNIQUE: 2D digital imaging was performed. COMPARISON: CR XR CHEST 2V PA LATERAL from 02/25/2020 FINDINGS: HEART: Mildly enlarged. Aorta: Tortuous. PULMONARY VASCULATURE: Normal. LUNGS: Linear scarring left lung base. Lungs otherwise clear. PLEURAL SPACE: No pleural effusion or pneumothorax. BONE:Unremarkable for age. IMPRESSION: No acute abnormality. DATA REPOSITORY: RADIATION DOSE DELIVERED:
[2022-12-30 21:13] LABS: Abs Immature Grans 0.05 10^3/uL (0.0-0.06); Absolute Basophil Count 0.03 10^3/uL (0.0-0.2); Absolute Eosinophil Count 0.37 10^3/uL (0.0-0.7); Absolute Lymphocyte Count 1.63 10^3/uL (1.2-3.4); Absolute Monocyte Count 1.01 10^3/uL (0.1-0.8); Absolute Neutrophil Count 4.08 10^3/uL (1.2-6.7); Basophils % 0.4; Eosinophils % 5.2; HCT 37.2 % (40.0-50.0); HGB 12.9 g/dL (13.5-17.5); Immature Grans % 0.7; Lymphocytes % 22.7; MCH 33.3 pg (27.0-33.0); MCHC 34.7 % (32.0-36.0); MCV 96 fL (80-95); MPV 10.2 fL (8.0-11.0); Monocytes % 14.1; Neutrophils % 56.9; Platelet Count 257 10^3/uL (130-400); RBC 3.87 10^6/uL (4.36-5.78); RDW 12.8 % (11.8-14.1); RDW-SD 45.2 fL; WBC 7.17 10^3/uL (4.4-10.8)
--- NOTE | 2022-12-30 21:14 | DI.VRAD_ITS ---
PROCEDURE INFORMATION: Exam: XR Chest Exam date and time: 12/30/2022 8:35 PM Age: 82 years old Clinical indication: Dyspnea; Patient HX: Dyspena on exertion TECHNIQUE: Imaging protocol: Radiologic exam of the chest. Views: 2 views. COMPARISON: CR XR CHEST 2V PA LATERAL 02/25/2020 2:31 PM FINDINGS: Lungs: Mild pulmonary hyperexpansion. Pulmonary vasculature grossly normal. Mild perihilar interstitial prominence could reflect mild interstitial edema or bronchitis/interstitial pneumonitis, versus chronic interstitial scarring. Mild bandlike alveolar density in the left lower lobe basilar distribution, favor atelectasis or scarring, can not exclude mild basilar infiltrate. Pleural spaces: No pleural effusion. No pneumothorax. Heart/Mediastinum: Heart size normal. No tracheal/mediastinal shift. Vasculature: Mild-moderate aortic ectasia/tortuosity. Bones/joints: Osteopenia. High riding distal left clavicle relative to the acromion consistent with AC separation which may be chronic, correlate clinically. Coracoclavicular distance is within normal range. IMPRESSION: 1. Mild bandlike left basilar alveolar density, favor atelectasis or scarring, patchy basilar infiltrate not excluded. 2. Mild perihilar interstitial prominence bilaterally, possibly mild changes of interstitial edema or bronchitis/interstitial pneumonitis. 3. Left AC separation which may be chronic, correlate clinically. Dictated and Authenticated by: Dixon Mace MD. Ordering:LYLE Gastelum MD
[2022-12-30 21:26] LABS: Anion Gap 12.3 mmol/L (3-11); BUN 16 mg/dL (7-18); CO2 22.7 mmol/L (21.0-32.0); Calcium 9.1 mg/dL (8.5-10.1); Chloride 102 mmol/L (98-107); Estimated GFR 75.61 (mL/min/1.73m2); Glucose 87 mg/dL (74-106); Potassium 4.2 mmol/L (3.5-5.1); Sodium 137 mmol/L (136-145)
[2022-12-30 21:43] LABS: D-Dimer 602 ng/mlFEU (<500)
== END 2022-12-30 19:38 | disposition home or self-care (01) ==
LOC: LBN 19:37
PROVIDERS: PCP Nurse Practitioner Family; Visit Provider Physician Assistant Medical
DX: R06.09 Other forms of dyspnea (principal)
CPT/HCPCS: 80048; 71046; 85025; 85379

== ENCOUNTER → 2022-12-30 20:29 | Outpatient (CLI) | payer MEDICARE, SELFPAY | PROVIDERS: PCP Nurse Practitioner Family; Visit Provider Internal Medicine Interventional Cardiology | DX: R06.09 Other forms of dyspnea (principal) | CPT/HCPCS: 71046 ==

== ENCOUNTER → 2023-01-12 00:58 | Outpatient (CLI) | payer MEDICARE, SELFPAY ==
[2023-01-12] MEDS: Normal Saline - Diluent 50 ML VIAL IJ (09:47)
[2023-01-12] MEDS: Omnipaque 350 MG/ML 500 ML BTL-Imaging package 100 ML IJ (09:48)
--- NOTE | 2023-01-12 10:30 | DI.CT_ITS ---
Exam(s) CT CHEST PE CTA EXAM: CT CHEST PE CTA CLINICAL HISTORY: New dyspnea, positive D-dimer,?PE,r06.00. TECHNIQUE: Imaging Protocol: CT angiography of the chest was performed using pulmonary embolus awa col. Multi planar reconstructions were performed. CONTRAST MATERIAL: Intravenous: Omnipaque 350 Contrast volume: 100 cc COMPARISON: CT CT ABDOMEN PELVIS WO/W from 04/16/2020 CR,XR XR CHEST 2V PA LATERAL from 12/30/2022 FINDINGS: CHEST: PULMONARY ARTERIES: There are no intraluminal filling defects to suggest acute pulmonary emboli. LUNGS: There are no confluent infiltrates nor evidence of pulmonary infarction.. Mild benign-appeari ng increased markings are noted in the lingular segment of the left lung. There are no ominous pulmo nary nodules. There are no pleural effusions. MEDIASTINUM: There is no hilar nor mediastinal adenopathy. Visualized thyroid unremarkable. CARDIAC: Mild cardiomegaly. No pericardial effusion.Diameter of the ascending thoracic aorta is enla rged, measuring 4.1 cm. No evidence of aortic dissection. Diameter of the aortic arch is also sligh tly prominent measuring 3 cm. The descending thoracic aorta is also slightly prominent. No dissecti on. There is no significant shift of the interventricular septum. PARTIALLY VISUALIZED UPPERMOST ABDOMEN: No obvious findings OSSEOUS: No significant osseous lesions.No fractures.. IMPRESSION: 1. No evidence of acute pulmonary emboli. No evidence of pulmonary infarction.No pleural effusions. No infiltrates nor intrathoracic adenopathy. 2. Dilated ascending thoracic aorta measuring 41 mm. No evidence of dissection. No pericardial effu heavenly. RADIATION DOSE DELIVERED: Total DLP DATA REPOSITORY: All CT scans at this facility are submitted to the National Radiology Data Registry (NRDR) Dose Index Registry (DIR) with the [employer] (ACR). RADIATION OPTIMIZATION: All CT scans at this facility use at least one of these dose optimization te chniques: automated exposure control; mA and/or kV adjustment per patient size (includes targeted exa ms where dose is matched to clinical indication); or iterative reconstruction.
== END ==
PROVIDERS: PCP Family Medicine; Visit Provider Family Medicine
DX: R06.00 Dyspnea, unspecified (principal); I77.810 Thoracic aortic ectasia
CPT/HCPCS: 71275

== ENCOUNTER → 2023-01-19 01:55 | Outpatient (CLI) | payer MEDICARE, SELFPAY ==
--- NOTE | 2023-01-19 | DI.US_ITS ---
APPROVED REPORT EXAM: Comprehensive 2D, Doppler, and color-flow Echocardiogram Patient Location: Out-Patient Consumer Lender: Kaylin Velazquez RDCS (AE) Indications: Tricuspid Valve insufficiency Other Information Study Quality: Adequate Conclusion Normal left ventricular wall thickness and chamber size. Ejection fraction is 58%. Wall motion is n ormal. Diastolic function is normal for age. Normal right ventricular size and systolic function Both atria are normal in size Aortic valve is trileaflet with mild regurgitation Mild mitral annular calcification. Trace mitral regurgitation Normal tricuspid valve with trace to mild regurgitation. Right ventricular systolic pressure could n ot be estimated Dilated ascending aorta measuring 3.87 cm Wall motion Left Ventricle The left ventricle is normal size. The left ventricular systolic function is normal. The left ventric ular ejection fraction is within the normal range. There is normal left ventricular wall thickness. T here is normal LV segmental wall motion. The left ventricular diastolic function is normal for age. T here is no ventricular septal defect visualized. LVEF is 58%. Right Ventricle The right ventricle is normal size. The right ventricular systolic function is normal. Atria The left atrium size is normal. The right atrium size is normal. The interatrial septum is intact wit h no evidence for an atrial septal defect. Aortic Valve The aortic valve is normal in structure. Aortic valve is trileaflet. There is no aortic valvular sten osis. Mild aortic regurgitation. Mitral Valve Mild mitral annular calcification. No evidence of mitral valve stenosis. Trace mitral regurgitation. Tricuspid Valve The tricuspid valve is normal in structure. There is no tricuspid valve stenosis. Trace to mild tricu spid regurgitation. Unable to assess PA pressure. Pulmonic Valve The pulmonary valve is normal in structure. There is no pulmonic valvular stenosis. Trace pulmonic re gurgitation. Great Vessels The aortic root is normal in size. The ascending aorta is mildly dilated. Ascending aorta is not well visualized. IVC is normal in size and collapses >50% with inspiration. Pericardium There is no pericardial effusion. 2D Dimensions IVSD d PLAX 1.01 cm M: 0.6-1.2 Ao Root d 3.73 cm M: 3.1 - 3.7 LVPW d PLAX 1.01 cm M: 0.6 - 1.2 Ao Asc Diam d 3.87 cm M: 2.6 - 3.4 LVID d PLAX 5.43 cm M: 4.2 - 5.8 LVDs 3.80 cm M: 2.5 - 4.0 LV EF Teichholz 56.9 % FS 30.11 % LV EDV (Teich) 143.3 mL LV ESV (Teich) 61.8 mL M-Mode TAPSE 2.20 cm (M/F) >1.7 Auto EF LV EDV A4C 161.1 mL LV EDV A2C 161.6 mL LV EDV BP 160.4 mL LV ESV A4C 63.9 mL LV ESV A2C 72.5 mL LV ESV BP 67.5 mL LVEF(%) A4C 60.3 % LVEF(%) A2C 55.1 % LVEF(%) BP 57.9 % LV SV A4C 97.1 ml LV SV A2C 89.1 ml LV SV BP 92.9 ml LV CO A4C 5.7 L/min LV CO A2C 5.1 L/min LV CO BP 5.4 L/min HR A4C 58.90 BPM HR A2C 57.60 BPM LV EDV Index (BP) LV Strain Long Pk Overal Avg (s) 15.32 RV Strain Global Peak Long. Strain A4C 15.59 Global Peak Long. Strain A4C FW 15.30 LA Volume LA Length A4C 5.9 cm LA Length A2C 4.5 cm LA Area A4C s 19.16 cm2 LA Area A2C s 12.52 cm2 LA Vol A4C A-L 52.65 mL LA Vol A2C A-L 29.47 mL LA Vol Biplane A-L 45.1 mL LA Vol/BSA A4C A-L LA Vol/BSA A2C A-L LA Vol/BSA BP A-L 23.6 mL/m2 LA Vol A4C MOD 49.7 mL LA Vol A2C MOD 27.9 mL LA Vol BP MOD 42.6 mL RA Volume RA Area A4C 18.5 cm2 RA ESV A4C (A-L) 50.4mL RA Vol/BSA A4C A-L RA Length A4C 5.8 cm RA ESV A4C (MOD) 48.9mL LV Diastology MV E' medial 0.070 (>0.07 m/s) MV E Vmax 0.87 (0.4-1.3 m/s) MV E/E' MED 12.44 (<14) MV A Vmax 0.95 (0.4-1.3 m/s) MV E' lateral 0.107 (>0.1 m/s) E/A Ratio 0.9 MV E/E' LAT 8.12 (<14) MV E' Average 0.088 m/s MV E/E'(average) 9.83 Aortic Valve AoV Vmax 1.77 m/s LVOT Vmax 1.32 m/s AoV Peak Grad 12.6 mmHg LVOT Peak Grad 7.0 mmHg AoV Area (Vmax) 2.38 cm2 LVOT VTI 0.278 m AoV VTI 0.362 m LVOT Mean Grad 3.5 mmHg AoV Mean Nabil. 1.22 m/s LVOT SV 88.71 mL AoV Mean Grad 7.0 mmHg LVOT Diam s 2.00 cm AoV Area (VTI) 2.45 cm2 Velocity Ratio 0.75 Mitral Valve MV DT 164 (160-240 msec) MV Vmax TIPS 0.91 m/s MV Mean Grad 1.7 (<2mmHg) MV VTI 0.249 m Pulmonary Valve PV Vmax 1.34 (0.5-1.5 m/s) RVOT Vmax 1.03 m/s PV Peak Grad 7.2 mmHg RVOT Peak Gr. 4.3 mmHg PV Mean Nabil 0.95 m/s RVOT VTI 0.235 m PV Mean Grad 4.1 mmHg RVOT Mean Gr. 2.3 mmHg Tricuspid Valve RA Pressure 3.00 mmHg TV S' 0.11 m/s
== END ==
PROVIDERS: PCP Family Medicine; Visit Provider Internal Medicine Interventional Cardiology
DX: I07.1 Rheumatic tricuspid insufficiency (principal)
CPT/HCPCS: 93306

== ENCOUNTER → 2023-02-14 08:07 | Outpatient (BNVA) | payer MEDICARE, SELFPAY | PROVIDERS: PCP Family Medicine; Referring Provider Family Medicine; Visit Provider Physician Assistant Surgical | DX: G47.33 Obstructive sleep apnea (adult) (pediatric) (principal); R06.09 Other forms of dyspnea | CPT/HCPCS: 94664; 99215 ==

== ENCOUNTER 2023-02-17 03:45 | Outpatient (CLI) | payer MEDICARE, SELFPAY ==
[2023-02-17] MEDS: Levalbuterol HFA 15 GM INH 4 PUFF IH (11:29)
[2023-02-17] MEDS: Inhaler, Assist Device 1 EACH MC (11:30)
--- NOTE | 2023-02-20 08:23 | W.PFT ---
Date of service: 02/17/23 Time of Service: 10:06 Pulmonary Function Test Result Indications: Dyspnea Interpretation Spirometry: There is no airflow limitation. There is no bronchodilator response. Lung Volumes: Normal lung volumes Diffusion Capacity: Normal diffusion Airway Pressure: Normal airways resistance Impression Normal pulmonary function testing Clinical Correlation therefore is recommended.
== END 2023-02-17 03:46 | disposition home or self-care (01) ==
LOC: RT 03:45
PROVIDERS: PCP Family Medicine; Visit Provider Physician Assistant Surgical
DX: R06.09 Other forms of dyspnea (principal); G47.33 Obstructive sleep apnea (adult) (pediatric)
CPT/HCPCS: 94060; 94726; 94729

== ENCOUNTER → 2023-03-16 09:48 | Outpatient (BNVA) | payer MEDICARE, SELFPAY | PROVIDERS: PCP Family Medicine; Referring Provider Family Medicine; Visit Provider Physician Assistant Surgical | DX: R06.09 Other forms of dyspnea (principal); G47.33 Obstructive sleep apnea (adult) (pediatric) | CPT/HCPCS: 99214 ==

== ENCOUNTER → 2023-04-19 02:27 | Outpatient (CLI) | payer MEDICARE, SELFPAY ==
--- NOTE | 2023-04-19 15:24 | DI.CT_ITS ---
Exam(s) CT CHEST WO EXAM: CT CHEST WO CLINICAL HISTORY: concern for fibrosis on CT pe,pulmonary fibrosis, j84.10 TECHNIQUE: Imaging Protocol: Axial computed tomography images with coronal and sagittal reformatted images were created and reviewed CONTRAST MATERIAL: Intravenous: Omnipaque 350 Contrast volume:structured data ml. COMPARISON: CT CHEST ABD PELVIS WITH CONTRAST from 03/10/2013 CR,XR XR CHEST 2V PA LATERAL from 12/30/[address] CHEST PE CTA from 01/12/2023 FINDINGS: Pulmonary parenchyma: No consolidation. No dominant measurable mass. Linear scarring at the left sue g base. Mildly increased peripheral increased interstitial densities at the lung bases bilaterally. Findings could represent early fibrotic changes versus dependent changes. Findings slightly worse w compared with 2013. Stable tiny nodule superior segment of right lower lobe. Tracheobronchial tree: No bronchiectasis or mucous plugging. Mediastinum and Parris: No dominant adenopathy or fluid collection. Pleura: No effusion. No pneumothorax. Heart: The heart is mildly dilated. Mild coronary artery calcifications are seen. Aorta: Thoracic aorta non-dilated. Mild atherosclerotic changes. Upper abdomen: No acute findings.. Bones: Degenerative changes in the spine. Soft tissues: Unremarkable. IMPRESSION: Minimal basilar densities. No significant fibrotic changes or emphysematous changes.. RADIATION DOSE DELIVERED: Total DLP DATA REPOSITORY: All CT scans at this facility are submitted to the National Radiology Data Registry (NRDR) Dose Index Registry (DIR) with the [employer] (ACR). RADIATION OPTIMIZATION: All CT scans at this facility use at least one of these dose optimization te chniques: automated exposure control; mA and/or kV adjustment per patient size (includes targeted exa ms where dose is matched to clinical indication); or iterative reconstruction.
== END ==
PROVIDERS: PCP Family Medicine; Visit Provider Student in an Organized Health Care Education/Training Program
DX: J84.10 Pulmonary fibrosis, unspecified (principal)
CPT/HCPCS: 36415; 71250; 80048

== ENCOUNTER 2023-04-19 15:20 | Outpatient (CLI) | payer MEDICARE, SELFPAY ==
[2023-04-19 16:49] LABS: Anion Gap 11.1 mmol/L (3-11); BUN 19 mg/dL (7-18); CO2 24.9 mmol/L (21.0-32.0); CREATININE 1.1 mg/dL (0.70-1.30); Calcium 8.8 mg/dL (8.5-10.1); Chloride 103 mmol/L (98-107); Estimated GFR 67.44 (mL/min/1.73m2); Glucose 91 mg/dL (74-106); Potassium 4.4 mmol/L (3.5-5.1); Sodium 139 mmol/L (136-145)
== END 2023-04-19 15:21 | disposition home or self-care (01) ==
LOC: LBO 15:20
PROVIDERS: PCP Family Medicine; Visit Provider Student in an Organized Health Care Education/Training Program
DX: I25.10 Atherosclerotic heart disease of native coronary artery without angina pectoris (principal)
CPT/HCPCS: 36415; 80048

== ENCOUNTER → 2023-05-11 08:57 | Outpatient (BNVA) | payer MEDICARE, SELFPAY | PROVIDERS: PCP Family Medicine; Referring Provider Family Medicine; Visit Provider Student in an Organized Health Care Education/Training Program | DX: R06.09 Other forms of dyspnea (principal); G47.33 Obstructive sleep apnea (adult) (pediatric) | CPT/HCPCS: 99214 ==

== ENCOUNTER 2023-05-12 12:04 | Emergency (ER) | payer MEDICARE, SELFPAY ==
[2023-05-12 12:05] VITALS: BP 140/72; PULSE 57; RESP 20; TEMP 36.6; O2SAT 95
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
[2023-05-12 12:24] LABS: Abs Immature Grans 0.06 10^3/uL (0.0-0.06); Absolute Basophil Count 0.05 10^3/uL (0.0-0.2); Absolute Lymphocyte Count 1.14 10^3/uL (1.2-3.4); Absolute Monocyte Count 1.04 10^3/uL (0.1-0.8); Absolute Neutrophil Count 6.56 10^3/uL (1.2-6.7); Basophils % 0.5; Eosinophils % 3.3; HCT 39.7 % (40.0-50.0); HGB 13.3 g/dL (13.5-17.5); Immature Grans % 0.7; Lymphocytes % 12.5; MCH 32.6 pg (27.0-33.0); MCHC 33.5 % (32.0-36.0); MCV 97 fL (80-95); MPV 9.7 fL (8.0-11.0); Monocytes % 11.4; Neutrophils % 71.6; Platelet Count 237 10^3/uL (130-400); RBC 4.08 10^6/uL (4.36-5.78); RDW 13.2 % (11.8-14.1); WBC 9.15 10^3/uL (4.4-10.8)
[2023-05-12] MEDS: Normal Saline - Diluent 50 ML VIAL IJ (12:36)
[2023-05-12] MEDS: Omnipaque 350 MG/ML 500 ML BTL-Imaging package 100 ML IJ (12:40)
[2023-05-12 12:44] LABS: ALT 37 U/L (16-63); AST 35 U/L (15-37); Albumin 3.7 g/dL (3.4-5.0); Alkaline Phosphatase 64 U/L (46-116); Anion Gap 5.2 mmol/L (3-11); BUN 18 mg/dL (7-18); Bilirubin, Total 0.5 mg/dL (0.2-1.0); CO2 29.8 mmol/L (21.0-32.0); CREATININE 1.3 mg/dL (0.70-1.30); Calcium 8.6 mg/dL (8.5-10.1); Chloride 103 mmol/L (98-107); Estimated GFR 55.19 (mL/min/1.73m2); Glucose 121 mg/dL (74-106); Lipase 26 U/L (16-77); Sodium 138 mmol/L (136-145); Total Protein 6.9 g/dL (6.4-8.2); Troponin I < 50 ng/L (< or =60)
[2023-05-12 12:46] LABS: ETHANOL BLOOD < 3.0 mg/dL (<10)
[2023-05-12 12:47] LABS: INR 1.1 (0.9-1.1); PTT Activated 25.9 sec (23.6-32.8); Prothrombin Time 10.7 sec (9.1-11.1)
--- NOTE | 2023-05-12 13:11 | DI.CT_ITS ---
Exam(s) CT HEAD CERVICAL SPINE WO EXAM: CT HEAD CERVICAL SPINE WO CLINICAL HISTORY: trauma. TECHNIQUE: Imaging Protocol: Axial computed tomography images with coronal and sagittal reformatted images were created and reviewed COMPARISON: CT HEAD NECK FACIAL WO from 10/01/2016 FINDINGS: Head CT Ventricles and Extra axial spaces: Normal in size and morphology for the patient's age. Hemorrhage: None. Cerebral parenchyma: No evidence of mass or acute infarct. Mild atrophy. Mild white matter change s microvascular disease. Midline shift: None. Brainstem/Cerebellum: Normal. Calvarium: Normal. Visualized Paranasal sinuses/Mastoids: Clear. Soft tissues: Unremarkable. Cervical Spine CT BONES: Vertebral body heights are maintained. Degenerative mild reversal of the normal cervical lordo sis. There is no evidence of acute fracture. Severe degenerative disc changes and facet degenerative changes are seen . SOFT TISSUES: No paraspinal hematoma. The airway appears intact. No pneumothorax is seen at the lung apices. IMPRESSION: Head CT: No acute abnormality. C-spine CT: Degenerative changes, no acute abnormality. RADIATION DOSE DELIVERED: Total DLP DATA REPOSITORY: All CT scans at this facility are submitted to the National Radiology Data Registry (NRDR) Dose Index Registry (DIR) with the [employer] ([employer]). RADIATION OPTIMIZATION: All CT scans at this facility use at least one of these dose optimization te chniques: automated exposure control; mA and/or kV adjustment per patient size (includes targeted exa ms where dose is matched to clinical indication); or iterative reconstruction.
--- NOTE | 2023-05-12 13:12 | DI.CT_ITS ---
Exam(s) CT CHEST/ABD/PEL W EXAM: CT CHEST/ABD/PEL W CLINICAL HISTORY: trauma. TECHNIQUE: Imaging Protocol: Axial computed tomography images with coronal and sagittal reformatted images were created and reviewed CONTRAST MATERIAL: Intravenous: Omnipaque 350 Contrast volume:100 ml Oral: no COMPARISON: CT CT ABDOMEN PELVIS WO/W from 04/16/[address] CHEST PE CTA from 01/12/[address] CHEST WO from 04/19/2023 FINDINGS: CHEST: Tracheobronchial tree: Patent where visualized. Pulmonary parenchyma: Dependent changes at the lung bases. Dominant measurable mass. Pleura: No effusion or pneumothorax. Lymph nodes: Within normal limits. Aorta: Thoracic portion non-dilated. Heart: Dilated. No pericardial effusion. Bones: Unremarkable for age. No lytic or blastic lesions.No compression fractures. No displaced rib fractures. Soft tissues: Unremarkable. ABDOMEN and PELVIS: Exam mildly limited by motion. Liver: Normal density. No measurable mass. Gallbladder and biliary tract: Single gallstone. No abnormal gallbladder distention or wall thickeni ng. No biliary dilatation. Pancreas: Normal density, no abnormal calcifications or inflammatory process. Stable pancreatic hea d cyst. Spleen: Normal. Kidneys: Normal size, contour and axis. No radiodense stones. No obstructive uropathy. No suspicious masses seen. Adrenal glands: No masses seen. Aorta: Abdominal portion non-dilated. Atherosclerotic changes. Lymph nodes: Within normal limits. Soft tissues: Small fatty containing umbilical hernia. Bladder: Nearly empty. Unremarkable. Bowel: No obstruction or bowel wall thickening. Peritoneal cavity: No ascites. No focal collection. No mesenteric inflammatory response. Bones: Unremarkable for age. Reproductive organs: Status post prostatectomy. IMPRESSION: No acute abnormality in the chest, abdomen or pelvis.. RADIATION DOSE DELIVERED: Total DLP DATA REPOSITORY: All CT scans at this facility are submitted to the National Radiology Data Registry (NRDR) Dose Index Registry (DIR) with the [employer] (ACR). RADIATION OPTIMIZATION: All CT scans at this facility use at least one of these dose optimization te chniques: automated exposure control; mA and/or kV adjustment per patient size (includes targeted exa ms where dose is matched to clinical indication); or iterative reconstruction.
[2023-05-12 14:26] VITALS: BP 143/55; PULSE 86; RESP 16; TEMP 36.6; O2SAT 94
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
== END 2023-05-12 14:27 | disposition home or self-care (01) ==
PROVIDERS: Emergency Provider Emergency Medicine; PCP Family Medicine
DX: S00.531A Contusion of lip, initial encounter (principal); S00.12XA Contusion of left eyelid and periocular area, initial encounter; S00.11XA Contusion of right eyelid and periocular area, initial encounter; S20.212A Contusion of left front wall of thorax, initial encounter; I10 Essential (primary) hypertension; F17.210 Nicotine dependence, cigarettes, uncomplicated; R00.1 Bradycardia, unspecified; V47.5XXA Car driver injured in collision with fixed or stationary object in traffic accident, initial encounter
CPT/HCPCS: 12001; 36415; 74177; 80053; 83690; 86850; 86900; 86901; 93005; 99285; 70450; 71260; 72125; 80320; 83735; 84484; 85025; 85610; 85730; 93010; 99284

== ENCOUNTER 2023-06-08 06:05 | Outpatient (CLI) | payer MEDICARE, SELFPAY ==
[2023-06-08] MEDS: Methacholine 100 MG VIAL IH (11:35)
[2023-06-08] MEDS: Inhaler, Assist Device 1 EACH MC (11:35)
[2023-06-08] MEDS: Albuterol HFA 18 GM 200 PUFF INH IH (11:35)
--- NOTE | 2023-06-08 12:51 | W.PFT ---
Date of service: 06/08/23 Time of Service: 10:11 Pulmonary Function Test Result Indications: Dyspnea Interpretation Spirometry: There is no airflow limitation. There was a 37% decrease in FEV1 with administration of 0.5mg/mL methacholine. Impression No baseline airflow limitation. Positive methacholine challenge. Clinical Correlation therefore is recommended.
== END 2023-06-08 06:06 | disposition home or self-care (01) ==
LOC: RT 06:05
PROVIDERS: PCP Family Medicine; Visit Provider Student in an Organized Health Care Education/Training Program
DX: R06.00 Dyspnea, unspecified (principal)
CPT/HCPCS: 94060; 94070; J7674

== ENCOUNTER → 2023-06-13 09:39 | Outpatient (BNVA) | payer MEDICARE, SELFPAY | PROVIDERS: PCP Family Medicine; Referring Provider Family Medicine; Visit Provider Student in an Organized Health Care Education/Training Program | DX: J45.909 Unspecified asthma, uncomplicated (principal); G47.33 Obstructive sleep apnea (adult) (pediatric) | CPT/HCPCS: 99214 ==

== ENCOUNTER → 2023-09-13 09:54 | Outpatient (BNVA) | payer MEDICARE, SELFPAY | PROVIDERS: PCP Family Medicine; Referring Provider Family Medicine; Visit Provider Physician Assistant Surgical | DX: J45.909 Unspecified asthma, uncomplicated (principal); G47.33 Obstructive sleep apnea (adult) (pediatric) | CPT/HCPCS: 99214 ==

== ENCOUNTER → 2023-11-15 12:45 | Outpatient (BNVA) | payer MEDICARE, SELFPAY | PROVIDERS: PCP Family Medicine; Referring Provider Family Medicine; Visit Provider Physician Assistant Surgical | DX: J45.909 Unspecified asthma, uncomplicated (principal); G47.33 Obstructive sleep apnea (adult) (pediatric) | CPT/HCPCS: 99214 ==

== ENCOUNTER 2023-11-22 00:44 | Outpatient (CLI) | payer MEDICARE, SELFPAY ==
--- NOTE | 2023-11-22 07:30 | DI.US_ITS ---
APPROVED REPORT EXAM: Comprehensive 2D, Doppler, and color-flow Echocardiogram Patient Location: Out-Patient Vegetable Sorter: Kaylin Velazquez RDCS (AE) Indications: Pulmonary HTN Other Information Study Quality: Adequate Conclusion Normal left ventricular wall thickness and chamber size. Ejection fraction is 58%. Wall motion is n ormal Normal right ventricular size and function Both atria are normal in size There are no structural valvular abnormalities There is trace aortic and mitral regurgitation Trace to mild tricuspid regurgitation. Right ventricular systolic pressure could not be estimated Ascending aorta measures 4.2 cm Wall motion Left Ventricle The left ventricle is normal size. The left ventricular systolic function is normal. The left ventric ular ejection fraction is within the normal range. There is normal left ventricular wall thickness. T here is normal LV segmental wall motion. There is no ventricular septal defect visualized. LVEF is 58 %. Right Ventricle The right ventricle is normal size. The right ventricular systolic function is normal. Atria The left atrium size is normal. The right atrium size is normal. The interatrial septum is intact wit h no evidence for an atrial septal defect. Aortic Valve The aortic valve is normal in structure. Aortic valve is trileaflet. There is no aortic valvular sten osis. Trace aortic regurgitation. Mitral Valve The mitral valve is normal in structure. No evidence of mitral valve stenosis. Trace mitral regurgita tion. Tricuspid Valve The tricuspid valve is normal in structure. There is no tricuspid valve stenosis. Trace to mild tricu spid regurgitation. Unable to assess PA pressure. Pulmonic Valve The pulmonary valve is normal in structure. There is no pulmonic valvular stenosis. Trace pulmonic re gurgitation. Great Vessels The aortic root is normal in size. The ascending aorta is moderately dilated. Aortic arch is normal i n caliber. IVC is normal in size and collapses >50% with inspiration. Pericardium There is no pericardial effusion. 2D Dimensions IVSD d PLAX 1.00 cm M: 0.6-1.2 Ao Root d 3.48 cm M: 3.1 - 3.7 LVPW d PLAX 1.02 cm M: 0.6 - 1.2 Ao Asc Diam d 4.20 cm M: 2.6 - 3.4 LVID d PLAX 5.50 cm M: 4.2 - 5.8 LVDs 3.81 cm M: 2.5 - 4.0 LV EF Teichholz 57.8 % FS 30.82 % LV EDV (Teich) 147.7 mL LV ESV (Teich) 62.3 mL M-Mode TAPSE 1.98 cm (M/F) >1.7 Auto EF LV EDV A4C 160.0 mL LV EDV A2C 140.9 mL LV EDV BP 152.0 mL LV ESV A4C 66.8 mL LV ESV A2C 58.5 mL LV ESV BP 64.2 mL LVEF(%) A4C 58.3 % LVEF(%) A2C 58.5 % LVEF(%) BP 57.8 % LV SV A4C 93.3 ml LV SV A2C 82.4 ml LV SV BP 87.8 ml LV CO A4C 5.7 L/min LV CO A2C 5.0 L/min LV CO BP 5.3 L/min HR A4C 60.71 BPM HR A2C 60.71 BPM LV EDV Index (BP) LA Volume LA Length A4C 6.5 cm LA Length A2C 6.0 cm LA Area A4C s 23.32 cm2 LA Area A2C s 22.53 cm2 LA Vol A4C A-L 71.29 mL LA Vol A2C A-L 71.32 mL LA Vol Biplane A-L 73.8 mL LA Vol/BSA A4C A-L LA Vol/BSA A2C A-L LA Vol/BSA BP A-L 37.1 mL/m2 LA Vol A4C MOD 64.8 mL LA Vol A2C MOD 67.5 mL LA Vol BP MOD 68.3 mL RA Volume RA Area A4C 19.3 cm2 RA ESV A4C (A-L) 51.7mL RA Vol/BSA A4C A-L RA Length A4C 6.1 cm RA ESV A4C (MOD) 50.6mL LV Diastology MV E' medial 0.095 (>0.07 m/s) MV E Vmax 0.77 (0.4-1.3 m/s) MV E/E' MED 8.08 (<14) MV A Vmax 0.90 (0.4-1.3 m/s) MV E' lateral 0.115 (>0.1 m/s) E/A Ratio 0.9 MV E/E' LAT 6.71 (<14) MV E' Average 0.105 m/s MV E/E'(average) 7.33 Aortic Valve AoV Vmax 1.75 m/s LVOT Vmax 1.25 m/s AoV Peak Grad 12.2 mmHg LVOT Peak Grad 6.2 mmHg AoV Area (Vmax) 2.24 cm2 LVOT VTI 0.273 m AoV VTI 0.398 m LVOT Mean Grad 3.6 mmHg AoV Mean Nabil. 1.19 m/s LVOT SV 85.77 mL AoV Mean Grad 6.5 mmHg LVOT Diam s 2.00 cm AoV Area (VTI) 2.15 cm2 AV Regurg Peak Gr. 12.21 mmHg Velocity Ratio 0.71 Mitral Valve MV DT 262 (160-240 msec) MV Vmax TIPS 0.94 m/s MV Mean Grad 1.5 (<2mmHg) MV VTI 0.314 m Pulmonary Valve PV Vmax 1.29 (0.5-1.5 m/s) RVOT Vmax 0.84 m/s PV Peak Grad 6.6 mmHg RVOT Peak Gr. 2.8 mmHg PV Mean Nabil 0.76 m/s RVOT VTI 0.165 m PV Mean Grad 2.7 mmHg RVOT Mean Gr. 1.3 mmHg Tricuspid Valve RA Pressure 3.00 mmHg TV S' 0.11 m/s
== END 2023-11-22 01:04 ==
LOC: DI 00:44
PROVIDERS: PCP Family Medicine; Visit Provider Physician Assistant Surgical
DX: I27.20 Pulmonary hypertension, unspecified (principal)
CPT/HCPCS: 93306

== ENCOUNTER → 2023-12-04 10:45 | Outpatient (BNVA) | payer MEDICARE, SELFPAY | PROVIDERS: PCP Family Medicine; Referring Provider Family Medicine; Visit Provider Physician Assistant Surgical | DX: J45.909 Unspecified asthma, uncomplicated (principal); G47.33 Obstructive sleep apnea (adult) (pediatric) | CPT/HCPCS: 36415; 99214 ==

== ENCOUNTER 2023-12-04 20:37 | Outpatient (REF) | payer MEDICARE, SELFPAY ==
[2023-12-04 13:37] LABS: Abs Immature Grans 0.06 10^3/uL (0.0-0.06); Absolute Basophil Count 0.03 10^3/uL (0.0-0.2); Absolute Eosinophil Count 0.18 10^3/uL (0.0-0.7); Absolute Lymphocyte Count 1.16 10^3/uL (1.2-3.4); Absolute Monocyte Count 1.02 10^3/uL (0.1-0.8); Absolute Neutrophil Count 3.85 10^3/uL (1.2-6.7); Basophils % 0.5 %; Eosinophils % 2.9 %; HCT 37.8 % (40.0-50.0); Lymphocytes % 18.4 %; MCH 33.5 pg (27.0-33.0); MCHC 34.4 % (32.0-36.0); MCV 97 fL (80-95); Monocytes % 16.2 %; Platelet Count 265 10^3/uL (130-400); RBC 3.88 10^6/uL (4.36-5.78); RDW 13.4 % (11.8-14.1)
[2023-12-04 13:57] LABS: ALT 30 U/L (16-63); AST 29 U/L (15-37); Albumin 3.3 g/dL (3.4-5.0); Alkaline Phosphatase 70 U/L (46-116); Anion Gap 6.4 mmol/L (3-11); BUN 18 mg/dL (7-18); Bilirubin, Total 0.57 mg/dL (0.2-1.0); CO2 26.6 mmol/L (21.0-32.0); CREATININE 1.2 mg/dL (0.70-1.30); Calcium 8.9 mg/dL (8.5-10.1); Chloride 104 mmol/L (98-107); Estimated GFR 60.38 (mL/min/1.73m2); Glucose 115 mg/dL (74-106); NT-proBNP 110 pg/mL (<300); Potassium 4.8 mmol/L (3.5-5.1); Sodium 137 mmol/L (136-145); TSH (W/Ref FT4) 1.67 uIU/mL (0.36-3.74); Total Protein 6.9 g/dL (6.4-8.2)
[2023-12-04 14:35] LABS: Vitamin B12 552 pg/mL (193-986); Vitamin D 25 Total 29.2 ng/mL (30-100)
== END 2023-12-04 20:38 | disposition home or self-care (01) ==
LOC: LBN 20:37
PROVIDERS: PCP Family Medicine; Visit Provider Physician Assistant Surgical
DX: I50.9 Heart failure, unspecified (principal); R06.09 Other forms of dyspnea; I51.7 Cardiomegaly; E55.9 Vitamin D deficiency, unspecified; R93.89 Abnormal findings on diagnostic imaging of other specified body structures; J45.909 Unspecified asthma, uncomplicated; G47.33 Obstructive sleep apnea (adult) (pediatric)
CPT/HCPCS: 80053; 82306; 82607; 83880; 84443; 85025

== ENCOUNTER 2023-12-22 00:26 | Outpatient (CLI) | payer MEDICARE, SELFPAY ==
--- NOTE | 2023-12-22 06:45 | DI.CT_ITS ---
Exam(s) CT CHEST HIGH RESOLUTION EXAM: CT CHEST HIGH RESOLUTION CLINICAL HISTORY: ? ILD,F/U ABNL CT,R93.89. TECHNIQUE: Imaging protocol: Axial computed tomography images were obtained and coronal and sagittal reformatted images were created and reviewed. Computer aided detection (CAD) was utilized. COMPARISON: CT CT CHEST WO from 04/19/[address] CHEST/ABD/PEL W from 05/12/2023 FINDINGS: Tracheobronchial tree: Patent where visualized. No bronchiectasis is present. Pulmonary parenchyma: There are calcified granuloma present. There has been interval development of a 3.3 transverse by 3.6 AP by 3.0 craniocaudad cm mass in the right lower lobe (series 2, image 94). There are areas of dependent atelectasis present. No focal consolidating infiltrates are seen. The previously described nodules in the right lower lobe appears stable. There is mild scarring seen in the right lower lobe. Mediastinum and Parris: No dominant adenopathy or fluid collection. The esophagus is unremarkable. Thyroid gland: Unremarkable. Pleura: No effusion or pneumothorax. Heart: Mild cardiomegaly. Coronary artery calcification is present. No pericardial effusion. Aorta: The ascending thoracic aorta measures 4.3 x 4.3 cm. Atherosclerotic calcification is present. Upper abdomen: Unremarkable. Lymph nodes: Within normal limits. Soft tissues: Unremarkable. Bones:Within normal limits for the patient's age. There is a new lytic lesion seen in the inferior a spect of the right scapula (series 2, image 74). There are old healed left rib fractures. There is an old healed sternal fracture. IMPRESSION: 1. New 3.3 x 3.6 x 3.0 cm right lower lobe mass suspicious for neoplasm. 2. Lytic lesion involving the inferior aspect of the right scapula suspicious for metastatic disease. Unexpected findings RADIATION DOSE DELIVERED: 474.49mGy.cm Total DLP 474.49mGy.cm Total DLP 474.49mGy.cm Total DLP DATA REPOSITORY: All CT scans at this facility are submitted to the National Radiology Data Registry (NRDR) Dose Index Registry (DIR) with the [employer] (ACR). RADIATION OPTIMIZATION: All CT scans at this facility use at least one of these dose optimization te chniques: automated exposure control; mA and/or kV adjustment per patient size (includes targeted exa ms where dose is matched to clinical indication); or iterative reconstruction.
== END 2023-12-22 00:46 ==
LOC: DI 00:26
PROVIDERS: PCP Family Medicine; Visit Provider Physician Assistant Surgical
DX: R93.89 Abnormal findings on diagnostic imaging of other specified body structures (principal)
CPT/HCPCS: 71250

== ENCOUNTER 2023-12-22 15:09 | Outpatient (CLI) | payer MEDICARE, SELFPAY ==
[2023-12-22 18:45] LABS: PSA, Screening <0.1 ng/mL (<=6.5)
== END 2023-12-22 15:10 | disposition home or self-care (01) ==
LOC: LBO 15:10
PROVIDERS: PCP Family Medicine; Visit Provider Family Medicine
DX: C61 Malignant neoplasm of prostate (principal)
CPT/HCPCS: 36415; 84153

== ENCOUNTER 2024-01-02 01:56 | Outpatient (CLI) | payer MEDICARE, SELFPAY ==
--- NOTE | 2024-01-02 07:00 | DI.NM_ITS ---
Exam(s) NM BONE SCAN WHOLE BODY GRP EXAM: NM BONE SCAN WHOLE BODY GRP CLINICAL HISTORY: New lung mass,? METS,C34.90. TECHNIQUE: Injected Dose: 25.4 mCi Tc-99m MDP Delayed Images: 2-3 hours. COMPARISON: CT scan 05/12/[address] CHEST HIGH RESOLUTION from 12/22/2023 FINDINGS: There is abnormal focal uptake seen in the anterior aspect 4 contiguous left ribs, appearing to be le ft ribs 6, 7, 8, 9 and consistent with healing fractures, as evident on recent CT scan.. In addition, there is a small focus of increased uptake seen in the anterior aspect of the right 5th rib which is somewhat suspicious given that there are no obvious findings in this location on recent CT scan. Also in the left side is a focus of increased radiopharmaceutical uptake in the posterior a spect of the left 10th rib, also without obvious abnormality at this level on CT scan. There is a focus of increased uptake seen in the inferior aspect of the right clavicle which correspo nds to lytic lesions seen at this location on the CT scan of 12/22/2023. Focus of abnormal increased uptake is seen in the right hemipelvis medial to the acetabulum. There a re no findings at this level on CT scan of 04/16/2020. More recent CT scans do not include this area . There is significant focal uptake in the sternum below the angle of Stefano which appears to coincide w ith a healing fracture site on CT scan of 12/22/2023. There is also a smaller focus of increased uptake seen in the lower left side of the sternum without an obvious focal finding at this level on the recent CT scan of December 2023. Some uptake is seen at 2 parallel levels in the mid-lower lumbar spine probably related to chronic de generative disc disease at these levels as seen on CT scan of 2023 There is a tiny focus of increased uptake seen in the right calcaneus region. No other abnormal upta ke seen in the lower limbs IMPRESSION: Multilevel uptake findings, most of which appear to be benign however, there is a significant focus o f increased uptake seen in the inferior aspect of the right scapula which corresponds to a lytic lesi on seen at this location on recent CT scan of 12/22/2023 in this patient who has a new significant ri ght lung lesion. DATA REPOSITORY:
== END 2024-01-02 02:16 ==
LOC: DI 01:56
PROVIDERS: PCP Family Medicine; Visit Provider Family Medicine
DX: C34.91 Malignant neoplasm of unspecified part of right bronchus or lung (principal)
CPT/HCPCS: 78306

== ENCOUNTER 2024-01-11 21:49 | Observation (INO) | payer MEDICARE, SELFPAY ==
[2024-01-11] VITALS (12 sets, daily range): BP systolic 135–171; BP diastolic 73–105; PULSE 69–91; RESP 12–19; TEMP 37.2–37.4; O2SAT 94–96
--- NOTE | 2024-01-11 21:45 | RT.EKG_ITS ---
APPROVED REPORT Exam: Resting ECG Reason for Exam: stroke? Patient Location: E HR:87 bpm ECG Measurements Heart Rate 87 AXIS TX 197 P 38 QRSd 109 QRS -4 QT 342 T 154 QTc 411 Conclusion Sinus rhythm...normal P axis, V-rate 60- 99 Nonspecific repol abnormality, diffuse leads...ST dep, T flat/neg, ant/lat/inf PHysician: no stemi, unchanged from prior ekg
--- NOTE | 2024-01-11 22:00 | DI.CT_ITS ---
Exam(s) CT CHEST PE CTA EXAM: CT CHEST PE CTA CLINICAL HISTORY: stroke like symptoms, mass. TECHNIQUE: Imaging Protocol: Axial CT angiography was performed with multi-slice acquisition and mu lti-planar and/or 3D reconstructions. Lung Computer Aided Detection (CAD) was utilized. CONTRAST MATERIAL: Intravenous: Omnipaque 350 contrast volume:78 mL COMPARISON: CT CT CHEST/ABD/PEL W from 05/12/[address] CHEST HIGH RESOLUTION from 12/22/2023 FINDINGS: The examination is limited due to patient motion artifact. Tracheobronchial tree: Patent where visualized. No bronchiectasis. Pulmonary parenchyma: There has been interval increase in size of the mass in the right lower lobe me asuring 4.2 x 4.0 cm. (Series 12, image 87). This compares to 3.6 x 3.3 cm on the prior examination . There is a small infiltrate in the right lower lobe. The lungs are otherwise clear. Atelectatic changes are seen in the lung bases. Pulmonary Arteries: No evidence of filling defect to suggest pulmonary emboli. Mediastinum and Parris: No dominant adenopathy or fluid collection. The esophagus is unremarkable. Visualized thyroid gland: Unremarkable. Pleura: No effusion or pneumothorax. Heart: Cardiomegaly. Coronary artery calcification is present. No evidence of right heart strain. No pericardial effusion. Aorta: Thoracic aorta non-dilated. No evidence of dissection. Atherosclerotic calcification is presen t. Upper abdomen: Cholelithiasis. There is subtle area of decreased attenuation in the left lobe of th e liver (series 12, image 116). No enhancing lesions are seen. Soft tissues: Unremarkable. Bones: There is again seen a lytic lesion in the inferior aspect of the right scapula. There is also lytic lesion seen in the posterior aspect of the left 10th rib. This is new compared to the prior e xamination. There is an old healed sternal fracture. IMPRESSION: 1. No evidence of pulmonary embolism, thoracic aortic dissection or aneurysm. 2. Interval increase in size of the right lower lobe pulmonary mass. 3. Small infiltrate in the right lower lobe which may represent atelectasis or pneumonia. 4. Subtle area of decreased attenuation in the left lobe of the liver. CT scan or MRI of the abdomen may be considered for further evaluation. 5. Osseous metastatic disease including a new left 10th rib lesion. RADIATION DOSE DELIVERED: 105.06mGy.cm Total DLP DATA REPOSITORY: All CT scans at this facility are submitted to the National Radiology Data Registry (NRDR) Dose Index Registry (DIR) with the [employer] (ACR). RADIATION OPTIMIZATION: All CT scans at this facility use at least one of these dose optimization te chniques: automated exposure control; mA and/or kV adjustment per patient size (includes targeted exa ms where dose is matched to clinical indication); or iterative reconstruction.
--- NOTE | 2024-01-11 22:00 | DI.CT_ITS ---
Exam(s) CT BRAIN NECK CTA EXAM: CT BRAIN NECK CTA CLINICAL HISTORY: stroke like symptoms. TECHNIQUE: Imaging Protocol: Axial CT angiography was performed with multi-slice acquisition and mu lti-planar and/or 3D reconstructions. CONTRAST MATERIAL: Intravenous: Omnipaque 350 contrast volume:70 mL COMPARISON: CT CT HEAD CERVICAL SPINE WO from 05/12/2023 FINDINGS: CT Head W/O and W: Ventricles and Extra axial spaces: Normal in size and morphology for the patient's age. Hemorrhage: None. Cerebral parenchyma: There are 11 hyperdense metastatic lesions seen on the noncontrast examination. Following contrast administration several more lesions are identified. The largest is in the left t emporal lobe and measures 4.1 x 2.6 cm. The appear hemorrhagic. There is surrounding vasogenic claudia a. There is effacement of the adjacent sulci particularly adjacent to the temporal lobe lesions. No evidence of an acute territorial infarct. Midline shift: None. Brainstem/Cerebellum: Normal. Calvarium: Normal. There is a lytic lesions seen in the head of the right mandible. Visualized Paranasal sinuses/Mastoids: Clear. Soft Tissues: Unremarkable. Enhancement: Unremarkable. CTA Neck W: Common Carotid: Right: No dissection, occlusion or significant stenosis. Left: No dissection, occlusion or significant stenosis. Mild atherosclerotic calcification is seen d istally. External Carotid: Right: No occlusion or significant stenosis. There is atherosclerotic calcification seen proximally. Left: No occlusion or significant stenosis. Internal Carotid: Right: No dissection, occlusion or significant stenosis. Atherosclerotic calcification is seen near the origin. Left: No dissection, occlusion or significant stenosis. Mild atherosclerotic calcification is seen n ear its origin. Vertebral Artery: Right: No dissection, occlusion or significant stenosis. Left: No dissection, occlusion or significant stenosis. Lung Apices: Normal. Bones: Within normal limits for the patient's age. There is a lytic lesion seen in the head of the ri ght mandible. Soft Tissues: Normal. Thyroid gland: Unremarkable. CTA Brain W: Internal Carotid Arteries: Atherosclerotic calcification is seen bilaterally. No aneurysm, occlusion or significant stenosis. Anterior Cerebral Arteries: Right: No aneurysm, occlusion or significant stenosis. Left: No aneurysm, occlusion or significant stenosis. Middle Cerebral Arteries: Right: No aneurysm, occlusion or significant stenosis. Left: No aneurysm, occlusion or significant stenosis. Posterior Cerebral Arteries: Right: No aneurysm, occlusion or significant stenosis. Left: No aneurysm, occlusion or significant stenosis. Vertebral Arteries: Right: No aneurysm, occlusion or significant stenosis. Left: No aneurysm, occlusion or significant stenosis. Basilar Artery: No aneurysm, occlusion or significant stenosis. IMPRESSION: 1. No large vessel occlusion or significant stenosis on the CT angiography of the head. 2. Numerous intraparenchymal hemorrhagic metastases. The largest is in the left temporal lobe. 3. Metastatic osseous lesion involving the head of the right mandible. 4. No occlusion or significant stenosis on the CT angiography of the neck. RADIATION DOSE DELIVERED: 2,452.58mGy.cm Total DLP DATA REPOSITORY: All CT scans at this facility are submitted to the National Radiology Data Registry (NRDR) Dose Index Registry (DIR) with the [employer] (ACR). RADIATION OPTIMIZATION: All CT scans at this facility use at least one of these dose optimization te chniques: automated exposure control; mA and/or kV adjustment per patient size (includes targeted exa ms where dose is matched to clinical indication); or iterative reconstruction.
[2024-01-11 22:14] LABS: Abs Immature Grans 0.09 10^3/uL (0.0-0.06); Absolute Basophil Count 0.03 10^3/uL (0.0-0.2); Absolute Eosinophil Count 0.23 10^3/uL (0.0-0.7); Absolute Lymphocyte Count 1.22 10^3/uL (1.2-3.4); Absolute Monocyte Count 1.02 10^3/uL (0.1-0.8); Absolute Neutrophil Count 6.66 10^3/uL (1.2-6.7); BE (Venous) 3 mmol/L (-2-3); Basophils % 0.3 %; Eosinophils % 2.5 %; HCO3 (Venous) 27 mmol/L (23-28); HCT 38.1 % (40.0-50.0); Lymphocytes % 13.2 %; MCH 33.2 pg (27.0-33.0); MCHC 34.1 % (32.0-36.0); MCV 97 fL (80-95); MPV 9.7 fL (8.0-11.0); O2 Sat (Venous) 76 %; Platelet Count 245 10^3/uL (130-400); RBC 3.91 10^6/uL (4.36-5.78); RDW 12.6 % (11.8-14.1); RDW-SD 45.3 fL; TCO2 (Venous) 24 mmol/L (24-29); WBC 9.25 10^3/uL (4.4-10.8); pCO2 (Venous) 42 mmHg (41-51); pH (Venous) 7.42 (7.31-7.41); pO2 (Venous) 43 mmHg
[2024-01-11] MEDS: Normal Saline - Diluent 50 ML VIAL IJ ×2 (22:18→22:20)
[2024-01-11] MEDS: Omnipaque 350 MG/ML 100 ML BTL IJ ×2 (22:19→22:20)
--- NOTE | 2024-01-11 22:25 | W.ED.GENAD ---
Discharge Plan Disposition Patient Disposition: Admit to [facility] Condition: Serious Discharge Details Chief Complaint: CVA/TIA Clinical Impression: Intracranial hemorrhage, Brain lesion, Dysarthria Admit Date/Time: 01/11/24 23:53 Admit Provider: Dixon Reilly Attending Provider: Dixon Reilly Primary Care Provider: Joseluis Ford ED Provider: Carlos Cuellar HPI General Date/Time Provider Initiated Documentation: 01/11/24 21:54. HPI Narrative: 83-year-old male with a past medical history of asthma, obstructive sleep apnea, cardiomegaly recently diagnosed lung cancer with metastasis just discovered within the last few days, who presents today with his family for evaluation of strokelike symptoms. 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 They were recently at [facility] this week where he was diagnosed with a lung lesion, concern to be metastases. Last known well was at 9:30 PM yesterday. This morning he was noted to be a little off, speech was a little atypical at around 10 or 11 AM. And then again at 1 PM when family interacted with him again he was noted to be quite off yet again with atypical speech and slight confusion. And then this evening at around 9 PM they noticed that his speech was extremely off, garbled, and abnormal. He was brought to the ER for further evaluation. Patient had no complaints himself. He denies any known history of brain cancer. He denies any previous history of stroke or NH. He is not on any blood thinners or antiplatelets. No other complaints at this time. Related Data Home Medications ?Medication ?Instructions ?Recorded ?Confirmed ascorbic acid (vitamin C) 1,000 mg 1,000 mg PO DAILY 06/06/12 01/11/24 tablet calcium 600 mg (as carbonate)-vit 1 ea PO 06/06/12 01/02/24 D3 10 mcg (400 unit)-minerals tablet multivitamin (Daily Vitamin tablet) 1 ea PO DAILY 06/06/12 01/11/24 atorvastatin 40 mg tablet 40 mg PO DAILY 04/30/18 01/11/24 zaleplon 5 mg capsule See Rx Instructions PO .QHS PRN 05/07/19 01/11/24 amlodipine 10 mg tablet 10 mg PO DAILY 10/07/19 01/11/24 losartan 100 mg tablet 100 mg PO DAILY 10/07/19 01/11/24 scopolamine base 1 mg over 3 days 1 patch transdermal Q72H PRN 01/27/22 01/11/24 transdermal patch (Transderm-Scop) motion sickness #10 ea sildenafil 100 mg tablet (Viagra) 50 - 100 mg (0.5 - 1 x 100 mg) PO 06/03/22 01/11/24 ONCE PRN sexual activity #10 tab-caps albuterol sulfate 90 mcg/actuation 2 puff inhalation Q4H PRN 02/14/23 01/11/24 aerosol inhaler shortness of breath or wheezing #8.5 grams pantoprazole 20 mg tablet,delayed 20 mg PO DAILY #90 tab-caps 03/09/23 01/11/24 release fluticasone propionate 230 2 puff inhalation BID #12 grams 06/13/23 01/11/24 mcg-salmeterol 21 mcg/actuation HFA inhaler (Advair HFA) carvedilol 6.25 mg tablet 6.25 mg PO BID #180 tabs 07/13/23 01/11/24 bupropion HCl 300 mg 24 hr tablet, See Rx Instructions PO QAM #90 tabs 09/14/23 01/11/24 extended release tamsulosin 0.4 mg capsule 0.4 mg PO QHS #90 caps 12/19/23 01/11/24 venlafaxine 100 mg tablet 100 mg PO BID #60 tabs 12/19/23 01/11/24 Previous Rx's ?Medication ?Instructions ?Recorded scopolamine base 1 mg over 3 days 1 patch transdermal Q72H PRN 01/27/22 transdermal patch (Transderm-Scop) motion sickness #10 ea sildenafil 100 mg tablet (Viagra) 50 - 100 mg (0.5 - 1 x 100 mg) PO 06/03/22 ONCE PRN sexual activity #10 tab-caps albuterol sulfate 90 mcg/actuation 2 puff inhalation Q4H PRN 02/14/23 aerosol inhaler shortness of breath or wheezing #8.5 grams pantoprazole 20 mg tablet,delayed 20 mg PO DAILY #90 tab-caps 03/09/23 release fluticasone propionate 230 2 puff inhalation BID #12 grams 06/13/23 mcg-salmeterol 21 mcg/actuation HFA inhaler (Advair HFA) carvedilol 6.25 mg tablet 6.25 mg PO BID #180 tabs 07/13/23 bupropion HCl 300 mg 24 hr tablet, See Rx Instructions PO QAM #90 tabs 09/14/23 extended release tamsulosin 0.4 mg capsule 0.4 mg PO QHS #90 caps 12/19/23 venlafaxine 100 mg tablet 100 mg PO BID #60 tabs 12/19/23 Allergies Allergy/AdvReac Type Severity Reaction Status Date / Time triamcinolone (From [employer]) Allergy Other (See Verified 01/11/24 22:01 Comment) simvastatin AdvReac Mild Myalgia Verified 01/11/24 22:01 cats Allergy Other (See Uncoded 01/11/24 22:01 Comment) General Stated Complaint: CVA/TIA ELVI: 2 Review of Systems All systems reviewed & are unremarkable except as noted in HPI and below Exam Narrative Exam Narrative: 1.Const: Well-nourished, Well-developed, appearing stated age 2.Eyes: PERRL, no conjunctival injection, and symmetrical lids. 3.ENT: Atraumatic external nose and ears. Dry MM. Neck: Symmetric, trachea midline, No thyromegaly. 4.CVS: +S1/S2, Peripheral pulses 2+ and equal in all extremities. Brisk capillary refill in all extremities. 5.RESP: Unlabored respiratory effort. Clear to auscultation bilaterally. No wheezes rales or rhonchi 6.GI: Soft, Nontender/Nondistended, No hepatosplenomegaly. No guarding or rebound. 7.MSK: Normocephalic/Atraumatic, Extremities w/o deformity or ttp No cyanosis or clubbing, Normal movement of all extremities 8.Skin: Warm, Dry. No rashes or lesions. 9.Neuro: surveillance technician II-XII grossly intact. Sensation grossly intact, CN 2-12 tested and intact, patient is able to hold bilateral arms up for 5 seconds and there is no pronator drift, patient also holds legs up for 10 seconds bilaterally without any drop, sensation intact to light touch in hands and feet bilaterally. Cerebellar exam normal as tested by [id number], rapid alternating movements, fine finger movements. Notably atypical speech pattern. There is some very mild dysarthria, however there is significant word salad and confusion of words. 10.Psych: (AAO) x0. Appropriate mood and affect Course Vital Signs Vital signs: Vital Signs Pulse 89 01/11/24 21:53 Respiratory Rate 16 01/11/24 21:53 Blood Pressure 160/82 H 01/11/24 21:53 Pulse Oximetry 96 01/11/24 21:53 Pulse 89 01/11/24 21:53 Respiratory Rate 18 01/11/24 22:02 Respiratory Effort Normal, Non-Labored 01/11/24 22:02 Respiratory Depth Normal 01/11/24 22:02 Respiratory Pattern Normal 01/11/24 22:02 Blood Pressure 160/82 H 01/11/24 21:53 Blood Pressure Position Supine 01/11/24 21:53 Pulse Oximetry 96 01/11/24 21:53 Oxygen Delivery Method Room Air 01/11/24 21:53 Oxygen Flow Rate 0 01/11/24 21:53 Pain Level 0 01/11/24 21:53 Lab/Test Results Lab/Test Results: Laboratory Tests Range/Units 01/11/24 22:05 WBC (4.4-10.8) 10^3/uL 9.25 RBC (4.36-5.78) 10^6/uL 3.91 L Hgb (13.5-17.5) g/dL 13.0 L Hct (40.0-50.0) % 38.1 L MCV (80-95) fL 97 H MCH (27.0-33.0) pg 33.2 H MCHC (32.0-36.0) % 34.1 RDW (11.8-14.1) % 12.6 Plt Count (130-400) 10^3/uL 245 MPV (8.0-11.0) fL 9.7 Immature Gran % % 1.0 Neutrophils % % 72.0 Lymphocytes % % 13.2 Monocytes % % 11.0 Eosinophils % % 2.5 Basophils % % 0.3 Nucleated RBC % (0.0-0.3) % 0.0 Absolute Neutrophils (1.2-6.7) 10^3/uL 6.66 Absolute Lymphocytes (1.2-3.4) 10^3/uL 1.22 Absolute Monocytes (0.1-0.8) 10^3/uL 1.02 H Absolute Eosinophils (0.0-0.7) 10^3/uL 0.23 Absolute Basophils (0.0-0.2) 10^3/uL 0.03 APTT Cancelled VBG pH (7.31-7.41) 7.42 H VBG pCO2 (41-51) mmHg 42 VBG pO2 mmHg 43 VBG HCO3 (23-28) mmol/L 27 VBG Total CO2 (24-29) mmol/L 24 VBG O2 Saturation % 76 VBG Base Excess (-2-3) mmol/L 3 Medical Decision Making 83-year-old male with a past medical history of asthma, obstructive sleep apnea, cardiomegaly recently diagnosed lung cancer with metastasis just discovered within the last few days, who presents today with his family for evaluation of strokelike symptoms. 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 They were recently at [facility] this week where he was diagnosed with a lung lesion, concern to be metastases. Last known well was at 9:30 PM yesterday. This morning he was noted to be a little off, speech was a little atypical at around 10 or 11 AM. And then again at 1 PM when family interacted with him again he was noted to be quite off yet again with atypical speech and slight confusion. And then this evening at around 9 PM they noticed that his speech was extremely off, garbled, and abnormal. He was brought to the ER for further evaluation. Patient had no complaints himself. He denies any known history of brain cancer. He denies any previous history of stroke or NH. He is not on any blood thinners or antiplatelets. No other complaints at this time. Physical exam demonstrates good strength in the upper and lower extremities, no facial asymmetry. The major deficit noted is significant word salad, patient appears confused and his speech is notably inconsistent. He is not able to articulate anything clearly. He does not know his birthdate or the year. He is not able to articulate where we are. Last known well is almost 24 hours ago at this stage. Differential is broad but includes metastatic lesions, brain bleed, ischemic stroke or hemorrhagic stroke, electrolyte abnormality or hypercarbia. We will check thyroid function. Evaluate for infectious etiologies, monitor closely and reassess. [address] imaging has returned and shows evidence of multiple hemorrhagic foci with associated perilesional edema and regional mass effect scattered throughout both cerebral hemispheres with the largest of these intraparenchymal hemorrhages measuring 3.8 cm along the left temporal lobe. No transcortical infarct is detected otherwise. There is also a 4 x 4 centimeter mass in the lungs noted that is concerning for malignancy. Patient is clearly not a tPA candidate. He is not on any antiplatelets or anticoagulants for which to reverse. During the patient's stay here his mental status has remained stable. He continues to have word finding difficulty, word salad, and unfortunately a significant lack of cognitive insight. We did speak with [facility] neurosurgery Dr. Ramirez. She does not have any acute recommendations at this time. She states steroids may be beneficial, however her recommendations would be to perform further metastatic workup if the patient would like to pursue additional medical therapy. I had a notably long conversation with the family for over an hour. We all discussed together including with the help with the patient's brother who is a medical practitioner, the scenario that the patient currently finds himself in. We discussed aggressive therapies including steroids, transferred to [facility], metastatic workup and evaluation with the potential for surgery. Family does not feel that this would be what the patient would want at all. They feel that it was the patient's goal when he recently discovered he had cancer that he wanted to look into hospice and potential palliative care options and made very clear to his family including his brother, his , and children that he did not want any aggressive therapies or surgeries whatsoever. He did not want to be intubated, and did not want CPR if he had cardiac arrest. Patient is not able to verbalize anything in an organized fashion at this time, and unfortunately he does not seem to demonstrate complete insight either as to the current scenario. After a notably thorough conversation with family, their desire was to bring the patient home and pursue hospice care from there. However we did discuss the challenges with the acute outpatient establishment of hospice in this scenario especially considering the current holiday season, and also the concerns for the patient if he went home being confused, having additional falls, seizures, or other potential negative effects, including . Through shared decision making process after significant thorough discussion, family has elected to keep the patient here overnight to establish help for home resources, transition the patient to hospice, and get the home ready for his return. All family members are in agreement with the daughter, son and at bedside. I contacted the hospitalist and discussed this with Dr. Macias. He agrees with the plan. We will give some small doses of Valium to help with the agitation that the patient is experiencing. I have extensively reviewed the treatment plan with the patient. I have addressed all patient concerns at this time. I have also discussed the plan with the admitting physician and they agree with the current assessment and plan and have agreed to assume responsibility for the patient. All parties demonstrate verbal understanding and agreement with our assessment and plan at this time. The documentation in this chart was dictated using [employer] dictation software. Please excuse any dictation errors. FINDINGS: ANTERIOR CIRCULATION: Right internal carotid artery: Intracranial segment is patent with no significant stenosis or occlusion. No aneurysm. Right middle cerebral artery: No occlusion or significant stenosis. No aneurysm. Right anterior cerebral artery: Hypoplasia/absence of the right A1 segment is a common developmental variant with normal caliber flow seen in the right anterior cerebral arterial branches distal to the level of the anterior communicating artery. No aneurysm. Left internal carotid artery: Intracranial segment is patent with no significant stenosis. No aneurysm. Left middle cerebral artery: No occlusion or significant stenosis. No aneurysm. Left anterior cerebral artery: No occlusion or significant stenosis. No aneurysm. POSTERIOR CIRCULATION: Right vertebral artery: No occlusion or significant stenosis. No aneurysm. Left vertebral artery: No occlusion or significant stenosis. No aneurysm. Basilar artery: No occlusion or significant stenosis. No aneurysm. Right posterior cerebral artery: No occlusion or significant stenosis. No aneurysm. Left posterior cerebral artery: No occlusion or significant stenosis. No aneurysm. HEAD: Brain: Multiple hemorrhagic foci with associated perilesional edema and regional mass effect are seen scattered throughout both cerebral hemispheres with the largest of these intraparenchymal hemorrhages measuring up to 3.8 cm maximum AP dimension along the anterior left temporal lobe. No acute transcortical infarction is detected. Cerebral ventricles: No midline shift or hydrocephalus with mass effect associated with the largest hemorrhagic lesion in the region left temporal lobe producing partial effacement of the posterior body and trigone of the left lateral ventricle. Bones: Bony calvarium and skull base appear grossly intact with no acute fractures detected. Paranasal sinuses: Grossly clear throughout. Mastoid air cells: Grossly clear bilaterally. Probable cerumen seen in the left external auditory canal. Soft tissues: Unremarkable. IMPRESSION: 1. Hypoplasia/absence of the right A1 segment is a common developmental variant with normal caliber flow seen in the right anterior cerebral arterial branches distal to the level of the anterior communicating artery. 2. No large vessel stenosis or occlusion detected involving the remaining major branches of the anterior or posterior intracranial circulation. 3. Multiple hemorrhagic foci with associated perilesional edema and regional mass effect are seen scattered throughout both cerebral hemispheres with the largest of these intraparenchymal hemorrhages measuring up to 3.8 cm maximum AP dimension along the anterior left temporal lobe. No acute transcortical infarction is detected FINDINGS: Right common carotid artery: No stenosis. No dissection or occlusion. Right internal carotid artery: No stenosis of the extracranial segment. No dissection or occlusion. Right external carotid artery: No occlusion or stenosis of the origin. Left common carotid artery: No stenosis. No dissection or occlusion. Left internal carotid artery: No stenosis of the extracranial segment. No dissection or occlusion. Left external carotid artery: No occlusion or stenosis of the origin. Right vertebral artery: No stenosis. No dissection or occlusion. Left vertebral artery: No stenosis. No dissection or occlusion. Soft tissues: Normal. No significant soft tissue swelling. Bones/joints: No acute fracture. IMPRESSION: No evidence of 50% or greater stenosis involving the cervical segments of the right or left internal carotid arteries by NASCET criteria FINDINGS: Pulmonary arteries: No pulmonary emboli. Aorta: No aortic aneurysm. No aortic dissection. Lungs: Motion artifact in the lungs. New 4 x 4 cm right lower lobe pulmonary mass. Minimal dependent subsegmental atelectasis. Pleural spaces: No pneumothorax. No pleural effusion. Heart: Mild cardiomegaly, similar to prior. Lymph nodes: No enlarged lymph nodes. Liver: Visualized portions of the liver appears somewhat nodular suggesting cirrhosis. Gallbladder and biliary ducts: Cholelithiasis partially seen. Bones/joints: Degenerative changes in the spine. Chronic sternal deformity again seen. Chronic rib deformities. Soft tissues: No suspicious lesions. IMPRESSION: 1. No pulmonary emboli are seen. 2. Mild cardiomegaly, similar to prior. 3. New 4 x 4 cm right lower lobe pulmonary mass is concerning for malignancy. 4. Incidental findings as described. Thank you for allowing us to participate in the care of your patient. Dictated and Authenticated by: Nhi Ayala MD 01/11/2024 10:49 PM Eastern Time ([place] & [place]) Quality:SDOH Health Related Social Needs: No Data to Display Critical Care Time Critical Care Time Critical Care Time: Yes Total Critical Care Time: 100 Attestation: Upon my evaluation, this patient had a high probability of imminent or life-threatening deterioration, which required my direct attention, intervention, and personal management. I have personally provided 100 minutes of critical care time exclusive of time spent on separately billable procedures. Time includes review of laboratory data, radiology results, discussion with consultants, and monitoring for potential decompensation. Interventions were performed as documented. PFSH All Active Problems (Updated 01/12/24 @ 03:07 by Carlos Cuellar DO) Dysarthria (Acute) Brain lesion (Acute) Intracranial hemorrhage (Acute) Metastasis to brain (Acute) Lung cancer (Chronic) Right lower lobe lung mass (Acute) Lower urinary tract symptoms (LUTS) (Acute) Abnormal CT scan (Acute) Hemorrhoids (Acute ~06/2023) internal and external Asthma (Chronic) SYLVIE (obstructive sleep apnea) (Chronic) Dyspnea on exertion (Acute) Impacted cerumen, bilateral (Acute) History of prostate cancer (Acute) Anemia (Chronic ~03/2021) Resolved with recheck 06/2021; again (mild) 06/2022 --> monitor 3 mo Memory loss (Acute) aricept started 08/12/21 cc Hereditary and idiopathic neuropathy, unspecified (Acute) Cardiomegaly (Acute) Xerosis cutis (Acute) 06/01/21-[facility] note: right posterior thigh. Chronic low back pain (Acute) Ascending aorta dilatation (Chronic) Incomplete right bundle branch block (Acute) 12-lead EKG [facility] Marked sinus bradycardia. 11/20/19 Lightheadedness (Chronic) [facility] Neuro; 09/03/2019: felt to be multifactorial; 11/2019: [facility] Cardiology orders Ziopatch for left atrial dilation, no arrhythmia, no treatment, return to Neuro in one year Imbalance (Acute) Depression (Chronic) Abnormal cardiovascular stress test (Acute 04/19/18) note dated 03/13/19 [facility] Horizontal depressions 1.5-2mm V3-V6, negative myocardial perfusion defects Tinnitus, bilateral (Acute) Diverticulosis (Chronic) 09/14/2017 colonoscopy ([facility]) 06/2023-[facility] colonoscopy Seborrheic dermatitis (Chronic) Sensorineural hearing loss of both ears (Chronic) Mitral valve insufficiency (Chronic) 04/03/2018 echo Vitreous degeneration of both eyes (Chronic) Moderate tricuspid valve regurgitation (Chronic) Most recent echo ([facility]) 02/11/2021 Moderate aortic valve regurgitation (Chronic) Most recent echo ([facility]) 02/11/2021: [id number] Severe obstructive sleep apnea (Chronic) CPAP; [facility] (Tereza Hernandez APRN) 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[facility]; hypnotic use Other and unspecified hyperlipidemia (Chronic 05/10/11) PCEq risk 26%; LDL baseline 170 Male erectile disorder (Chronic 03/21/13) IFG (impaired fasting glucose) (Chronic 01/24/17) Essential hypertension (Chronic 05/10/11) Allergic rhinitis, unspecified (Chronic 05/10/11) Medical History Seborrheic keratosis 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: split thickness skin graft to left posterior scalp with harvest from right posterior thigh Dermatophytosis of nail (05/10/11) Bladder tumor (06/30/14) S/p bladder and prostate surgery Achilles tendinitis (11/21/13) Surgical History Hx of colonoscopy (07/11/23) [facility] no repeat due to age Status post Mohs surgery (~12/2022) malignant melanoma in situ vertex scalp and in situ central upper back 12/05 Hx of breast surgery Status post tendon repair (03/17/21) right quadriceps tear repair H/O basal cell carcinoma excision (~10/2020) right shoulder Status post prostatectomy (~2004) History of right inguinal hernia repair 03/23/18 Dr Hermes Banks [facility] General Surgery Cystoscopy (11/24/16) [facility]-Dr Padgett and 03/24/17 04/08/20-[facility] Colonoscopy - IV Sedation (07/31/14) w/ bx with both 09/14/17 [facility] [place] colonoscopy 3 polyps Colonoscopy - IV Sedation (12/20/04) w/ bx with both 09/14/17 [facility]- colonoscopy 3 polyps Family History Father Neurological disorder Alcohol use disorder Progressive supranuclear palsy Mother Breast cancer Social History Smoking/Tobacco Use Status: Former Tobacco Use Tobacco: How many years used: 40 Quit status: quit date established Second Hand Exposure: No Smoking risk assessment performed?: Yes Alcohol Intake: current Alcohol Intake frequency: 3 or more drinks per day Alcohol type: wine Drug use: Never Substance use type: does not use Adopted: No Caregiver/Support person: No Foster care: No Household members: spouse Housing: house Number of Children: 3 number of grandchildren: 7 Communication Needs: Corrective Lenses Education Level: master's degree Do you need help understanding health information?: Never 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 Pets and animals: No Do you think of yourself as: straight/heterosexual Current gender identity: male What is your relationship status?: How often do you talk on the phone with friends or family?: twice per week How often do you get together with friends or relatives?: once per week Do you belong to any clubs or organized social groups?: no Panel score (0-1 are the most socially isolated patients): 2 What type of physical activity do you participate in: bicycling and regular exercise Duration: 15-30 minutes/day Frequency: 3-4 times per week Chikis/Orthodox: None Seatbelt use: always Helmet use: Yes Drive intox or ride w/intox bus driver: No Water heater temp set <120 deg: Yes Working smoke detector in home: Yes Fire extinguisher in home: Yes Carbon monox detector in home: Yes Firearms in home: Yes Firearms unloaded and locked: Yes Do you feel safe at home: Yes Do you feel safe in your relationship?: Yes
[2024-01-11 22:29] LABS: INR 1.1 (0.9-1.1); PTT Activated 31.1 sec (23.6-32.8); Prothrombin Time 10.9 sec (9.1-11.1)
[2024-01-11 22:39] LABS: ALT 31 U/L (16-63); AST 35 U/L (15-37); Albumin 3.2 g/dL (3.4-5.0); Alkaline Phosphatase 131 U/L (46-116); Anion Gap 10.5 mmol/L (3-11); BUN 24 mg/dL (7-18); Bilirubin, Total 0.49 mg/dL (0.2-1.0); CO2 27.5 mmol/L (21.0-32.0); CREATININE 1.4 mg/dL (0.70-1.30); Chloride 102 mmol/L (98-107); Estimated GFR 50.18 (mL/min/1.73m2); Glucose 158 mg/dL (74-106); Magnesium 1.7 mg/dL (1.8-2.4); Potassium 3.8 mmol/L (3.5-5.1); Sodium 140 mmol/L (136-145); Total Protein 7.2 g/dL (6.4-8.2); Troponin I 15 ng/L (<or=76)
--- NOTE | 2024-01-11 22:42 | DI.VRAD_ITS ---
Addendum created by Artis Oshea MD on 01/11/2024 10:44:00 PM EST: THIS REPORT CONTAINS FINDINGS THAT MAY BE CRITICAL TO PATIENT CARE. The findings were verbally communicated via telephone conference with NILA ANGLIN at 10:43 PM EST on 01/11/2024. The findings were acknowledged and understood. Initial report created on 01/11/2024 10:41:50 PM EST: PROCEDURE INFORMATION: Exam: CTA Head Without And With Contrast, Arteriography Exam date and time: 01/11/2024 10:09 PM Age: 83 years old Clinical indication: Stroke-like symptoms; Speech disturbance TECHNIQUE: Imaging protocol: Computed tomographic angiography of the head without and with contrast. Exam focused on the arteries. 3D rendering (Not supervised by radiologist): MIP and/or 3D reconstructed images were created by the technologist. Contrast material: OMNIPAQUE 350; Contrast volume: 70 ml; Contrast route: INTRAVENOUS (IV); Other technique: STROKE PROTOCOL was implemented. COMPARISON: CT HEAD CERVICAL SPINE WO 05/12/2023 12:43 PM FINDINGS: ANTERIOR CIRCULATION: Right internal carotid artery: Intracranial segment is patent with no significant stenosis or occlusion. No aneurysm. Right middle cerebral artery: No occlusion or significant stenosis. No aneurysm. Right anterior cerebral artery: Hypoplasia/absence of the right A1 segment is a common developmental variant with normal caliber flow seen in the right anterior cerebral arterial branches distal to the level of the anterior communicating artery. No aneurysm. Left internal carotid artery: Intracranial segment is patent with no significant stenosis. No aneurysm. Left middle cerebral artery: No occlusion or significant stenosis. No aneurysm. Left anterior cerebral artery: No occlusion or significant stenosis. No aneurysm. POSTERIOR CIRCULATION: Right vertebral artery: No occlusion or significant stenosis. No aneurysm. Left vertebral artery: No occlusion or significant stenosis. No aneurysm. Basilar artery: No occlusion or significant stenosis. No aneurysm. Right posterior cerebral artery: No occlusion or significant stenosis. No aneurysm. Left posterior cerebral artery: No occlusion or significant stenosis. No aneurysm. HEAD: Brain: Multiple hemorrhagic foci with associated perilesional edema and regional mass effect are seen scattered throughout both cerebral hemispheres with the largest of these intraparenchymal hemorrhages measuring up to 3.8 cm maximum AP dimension along the anterior left temporal lobe. No acute transcortical infarction is detected. Cerebral ventricles: No midline shift or hydrocephalus with mass effect associated with the largest hemorrhagic lesion in the region left temporal lobe producing partial effacement of the posterior body and trigone of the left lateral ventricle. Bones: Bony calvarium and skull base appear grossly intact with no acute fractures detected. Paranasal sinuses: Grossly clear throughout. Mastoid air cells: Grossly clear bilaterally. Probable cerumen seen in the left external auditory canal. Soft tissues: Unremarkable. IMPRESSION: 1. Hypoplasia/absence of the right A1 segment is a common developmental variant with normal caliber flow seen in the right anterior cerebral arterial branches distal to the level of the anterior communicating artery. 2. No large vessel stenosis or occlusion detected involving the remaining major branches of the anterior or posterior intracranial circulation. 3. Multiple hemorrhagic foci with associated perilesional edema and regional mass effect are seen scattered throughout both cerebral hemispheres with the largest of these intraparenchymal hemorrhages measuring up to 3.8 cm maximum AP dimension along the anterior left temporal lobe. No acute transcortical infarction is detected. ASSESSMENT: ASPECTS ([place] Stroke Program Early CT Score) is 10. PROCEDURE INFORMATION: Exam: CTA Neck Without And With Contrast Exam date and time: 01/11/2024 10:09 PM Age: 83 years old Clinical indication: Stroke-like symptoms; Speech disturbance TECHNIQUE: Imaging protocol: Computed tomographic angiography of the neck without and with contrast. Exam focused on the cervical segments of the vasculature. 3D rendering (Not supervised by radiologist): MIP and/or 3D reconstructed images were created by the technologist. Contrast material: OMNIPAQUE 350; Contrast volume: 70 ml; Contrast route: INTRAVENOUS (IV); COMPARISON: NM BONE SCAN WHOLE BODY GRP 01/02/2024 8:26 AM FINDINGS: Right common carotid artery: No stenosis. No dissection or occlusion. Right internal carotid artery: No stenosis of the extracranial segment. No dissection or occlusion. Right external carotid artery: No occlusion or stenosis of the origin. Left common carotid artery: No stenosis. No dissection or occlusion. Left internal carotid artery: No stenosis of the extracranial segment. No dissection or occlusion. Left external carotid artery: No occlusion or stenosis of the origin. Right vertebral artery: No stenosis. No dissection or occlusion. Left vertebral artery: No stenosis. No dissection or occlusion. Soft tissues: Normal. No significant soft tissue swelling. Bones/joints: No acute fracture. IMPRESSION: No evidence of 50% or greater stenosis involving the cervical segments of the right or left internal carotid arteries by NASCET criteria. REFERENCES: NASCET CRITERIA. The degree of stenosis in the cervical segment of the internal carotid artery is based on NASCET criteria. Normal is no stenosis. Mild is less than 50% stenosis. Moderate is 50-69% stenosis. Severe is 70% to 99% stenosis. Total occlusion is no detectable patent lumen. Dictated and Authenticated by: Artis Oshea MD. Ordering:MIRACLE Gonzalez MD
--- NOTE | 2024-01-11 22:49 | DI.VRAD_ITS ---
PROCEDURE INFORMATION: Exam: CTA Chest With Contrast Exam date and time: 01/11/2024 22:21 Age: 83 years old Clinical indication: Other: Stroke like symptoms, mass TECHNIQUE: Imaging protocol: Computed tomographic angiography of the chest with contrast. Exam focused on the arteries. 3D rendering (Not supervised by radiologist): MIP and/or 3D reconstructed images were created by the technologist. Contrast material: OMNIPAQUE 350; Contrast volume: 78 ml; Contrast route: INTRAVENOUS (IV); COMPARISON: CT CHEST PE CTA 01/12/2023 09:44 FINDINGS: Pulmonary arteries: No pulmonary emboli. Aorta: No aortic aneurysm. No aortic dissection. Lungs: Motion artifact in the lungs. New 4 x 4 cm right lower lobe pulmonary mass. Minimal dependent subsegmental atelectasis. Pleural spaces: No pneumothorax. No pleural effusion. Heart: Mild cardiomegaly, similar to prior. Lymph nodes: No enlarged lymph nodes. Liver: Visualized portions of the liver appears somewhat nodular suggesting cirrhosis. Gallbladder and biliary ducts: Cholelithiasis partially seen. Bones/joints: Degenerative changes in the spine. Chronic sternal deformity again seen. Chronic rib deformities. Soft tissues: No suspicious lesions. IMPRESSION: 1. No pulmonary emboli are seen. 2. Mild cardiomegaly, similar to prior. 3. New 4 x 4 cm right lower lobe pulmonary mass is concerning for malignancy. 4. Incidental findings as described. Dictated and Authenticated by: Nhi Ayala MD. Ordering:MIRACLE Gonzalez MD
[2024-01-11 22:50] LABS: TSH (W/Ref FT4) 1.67 uIU/mL (0.36-3.74)
[2024-01-11 22:59] LABS: ETHANOL BLOOD < 3.0 mg/dL (<10)
[2024-01-11 23:38] LABS: Troponin I 13 ng/L (<or=76)
[2024-01-12] VITALS (7 sets, daily range): BP systolic 99–167; BP diastolic 55–90; PULSE 64–94; RESP 15–20; TEMP 36.5; O2SAT 94–97
[2024-01-12] MEDS: diazePAM 10 MG/2 ML SYR IVP ×4 (00:01→01:48)
--- NOTE | 2024-01-12 01:18 | HPE_ITS ---
Date of service: 01/12/24 Time of Service: 01:18 Assessment and Plan Assessment and plan (1) Metastasis to brain: Status: Acute Assessment and plan: Per neurosurgery read of the CT there are at least 10 lesions in the brain, up to 3.8cm with hemmorhages. This is in the setting of rapidly growing lung mass and lytic bone lesions Given rapid progression and hemorrhagic lesions in brain as well as his cancer history, I would suspect metastatic melanoma. Case reviewed with [facility] neurosurgery and transfer was offered for evaluation and palliative treatment The patient himself is clearly unable to understand his medical situation or engage in decision making due to the brain disease. His Ilda and family, as well as his physician brother, all agree that he would not have wanted aggressive care and would like to transition to [facility]/hospice He will be admitted for observation, plan to organize hospice care during day. His agitation is related to lack of insight into his disease, which is difficult and unfortunate. Can use palliative benzodiazepines or haloperidol to manage Considered prophylactic Keppra. If this is melanoma, hemorrhagic lesions do carry a higher risk of seizures, but he has not had any seizure-like activity. Will hold off on loading for now. Per neurosurgery, dexamethasone not indicated if palliative focus. I evaluated the patient and discussed case with family present. History of Present Illness History of Present Illness Chief Complaint: confusion Narrative: 83 yo M with history of 3 melanomas excised in 2016 and 2022, bladder cancer, and prostate cancer as well as recently evaluated rapidly enlarging lung lesion who presented with acute difficulty speaking. The family states he was well neurologically 9:30 PM on 01/09. On the morning of 01/10 the family noted his speech was off around 10am. By 1pm they noted he was not speaking clearly and seemed somewhat confused. The symptoms were worse by 9pm with unintelligible speech and he was brought to the emergency room for evaluation. He denies any headache, focal numbness or weakness, nausea, or abnormal movements. Over the past several months he has had increased difficulty breathing. He does have asthma and SYLVIE but CT of his chest 12/21 showed 36mm lesion in his lung and a lytic lesion in his scapula that were suspicious for metastatic cancer. He had an initial evaluation at [facility] Interventional Pulmonology with plan for PET/CT and biopsy on 01/10/24. He was recently seen by his Mess Attendant 12/25 and no skin lesions were identified. 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 His has noted he has been sleeping more and more fatigued over the past 1-2 weeks, which is not normal for him. Review of Systems Narrative: negative full ROS but his insight is clearly limited All systems reviewed & are unremarkable except as noted in HPI and below PFSH All Active Problems (Updated 01/12/24 @ 01:49 by Dixon Reilly) Metastasis to brain (Acute) Lung cancer (Chronic) Right lower lobe lung mass (Acute) Lower urinary tract symptoms (LUTS) (Acute) Abnormal CT scan (Acute) Hemorrhoids (Acute ~06/2023) internal and external Asthma (Chronic) SYLVIE (obstructive sleep apnea) (Chronic) Dyspnea on exertion (Acute) Impacted cerumen, bilateral (Acute) History of prostate cancer (Acute) Memory loss (Acute) aricept started 08/12/21 cc Hereditary and idiopathic neuropathy, unspecified (Acute) Anemia (Chronic ~03/2021) Resolved with recheck 06/2021; again (mild) 06/2022 --> monitor 3 mo Cardiomegaly (Acute) Xerosis cutis (Acute) 06/01/21-[place] D[facility] note: right posterior thigh. Chronic low back pain (Acute) Ascending aorta dilatation (Chronic) Incomplete right bundle branch block (Acute) 12-lead EKG [facility] Marked sinus bradycardia. 11/20/19 Imbalance (Acute) Abnormal cardiovascular stress test (Acute 04/19/18) note dated 03/13/19 [facility] Horizontal depressions 1.5-2mm V3-V6, negative myocardial perfusion defects Tinnitus, bilateral (Acute) Lightheadedness (Chronic) [facility] Neuro; 09/03/2019: felt to be multifactorial; 11/2019: [facility] Cardiology orders Ziopatch for left atrial dilation, no arrhythmia, no treatment, return to Neuro in one year Diverticulosis (Chronic) 09/14/2017 colonoscopy ([facility]) 06/2023-[facility] colonoscopy Sensorineural hearing loss of both ears (Chronic) Seborrheic dermatitis (Chronic) Mitral valve insufficiency (Chronic) 04/03/2018 echo Vitreous degeneration of both eyes (Chronic) Moderate tricuspid valve regurgitation (Chronic) Most recent echo ([facility]) 02/11/2021 Moderate aortic valve regurgitation (Chronic) Most recent echo ([facility]) 02/11/2021: [id number] Depression (Chronic) Severe obstructive sleep apnea (Chronic) CPAP; [facility] Sleep Medicine (Tereza Hernandez APRN) 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[facility]; hypnotic use Other and unspecified hyperlipidemia (Chronic 05/10/11) PCEq risk 26%; LDL baseline 170 Male erectile disorder (Chronic 03/21/13) IFG (impaired fasting glucose) (Chronic 01/24/17) Essential hypertension (Chronic 05/10/11) Allergic rhinitis, unspecified (Chronic 05/10/11) Medical History Seborrheic keratosis 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: split thickness skin graft to left posterior scalp with harvest from right posterior thigh Dermatophytosis of nail (05/10/11) Bladder tumor (06/30/14) S/p bladder and prostate surgery Achilles tendinitis (11/21/13) Surgical History Hx of colonoscopy (07/11/23) [facility] no repeat due to age Status post Mohs surgery (~12/2022) malignant melanoma in situ vertex scalp and in situ central upper back 12/05 Hx of breast surgery Status post tendon repair (03/17/21) right quadriceps tear repair H/O basal cell carcinoma excision (~10/2020) right shoulder Status post prostatectomy (~2004) History of right inguinal hernia repair 03/23/18 Dr Hermes Banks [facility] General Surgery Cystoscopy (11/24/16) [facility]-Dr Padgett and 03/24/17 04/08/20-[facility] Colonoscopy - IV Sedation (06/18/15) w/ bx with both 09/14/17 [facility] [place]- colonoscopy 3 polyps Colonoscopy - IV Sedation (12/20/04) w/ bx with both 09/14/17 [facility] [place]- colonoscopy 3 polyps Family History Father Neurological disorder Alcohol use disorder Progressive supranuclear palsy Mother Breast cancer Social History Smoking/Tobacco Use Status: Former Tobacco Use Tobacco: How many years used: 40 Quit status: quit date established Second Hand Exposure: No Smoking risk assessment performed?: Yes Alcohol Intake: current Alcohol Intake frequency: 3 or more drinks per day Alcohol type: wine Drug use: Never Substance use type: does not use Adopted: No Caregiver/Support person: No Foster care: No Household members: spouse Housing: house Number of Children: 3 number of grandchildren: 7 Communication Needs: Corrective Lenses Education Level: master's degree Do you need help understanding health information?: Never current occupation: [employer] Pets and animals: No Do you think of yourself as: straight/heterosexual Current gender identity: male What is your relationship status?: How often do you talk on the phone with friends or family?: twice per week How often do you get together with friends or relatives?: once per week Do you belong to any clubs or organized social groups?: no Panel score (0-1 are the most socially isolated patients): 2 What type of physical activity do you participate in: bicycling and regular exercise Duration: 15-30 minutes/day Frequency: 3-4 times per week Chikis/Temple: None Seatbelt use: always Helmet use: Yes Drive intox or ride w/intox goat driver: No Water heater temp set <120 deg: Yes Working smoke detector in home: Yes Fire extinguisher in home: Yes Carbon monox detector in home: Yes Firearms in home: Yes Firearms unloaded and locked: Yes Do you feel safe at home: Yes Do you feel safe in your relationship?: Yes Meds Allergies and Home Medications Allergies Allergy/AdvReac Type Severity Reaction Status Date / Time triamcinolone (From Kenalog) Allergy Other (See Verified 01/11/24 22:01 Comment) simvastatin AdvReac Mild Myalgia Verified 01/11/24 22:01 cats Allergy Other (See Uncoded 01/11/24 22:01 Comment) Home Medications ?Medication ?Instructions ?Recorded ?Confirmed ?Type ascorbic acid (vitamin C) 1,000 mg 1,000 mg PO DAILY 06/06/12 01/11/24 History tablet calcium 600 mg (as carbonate)-vit 1 ea PO 06/06/12 01/02/24 History D3 10 mcg (400 unit)-minerals tablet multivitamin (Daily Vitamin tablet) 1 ea PO DAILY 06/06/12 01/11/24 History atorvastatin 40 mg tablet 40 mg PO DAILY 04/30/18 01/11/24 History zaleplon 5 mg capsule See Rx Instructions PO .QHS PRN 05/07/19 01/11/24 History amlodipine 10 mg tablet 10 mg PO DAILY 10/07/19 01/11/24 History losartan 100 mg tablet 100 mg PO DAILY 10/07/19 01/11/24 History scopolamine base 1 mg over 3 days 1 patch transdermal Q72H PRN 01/27/22 01/11/24 Rx transdermal patch (Transderm-Scop) motion sickness #10 ea sildenafil 100 mg tablet (Viagra) 50 - 100 mg (0.5 - 1 x 100 mg) PO 06/03/22 01/11/24 Rx ONCE PRN sexual activity #10 tab-caps albuterol sulfate 90 mcg/actuation 2 puff inhalation Q4H PRN 02/14/23 01/11/24 Rx aerosol inhaler shortness of breath or wheezing #8.5 grams pantoprazole 20 mg tablet,delayed 20 mg PO DAILY #90 tab-caps 03/09/23 01/11/24 Rx release fluticasone propionate 230 2 puff inhalation BID #12 grams 06/13/23 01/11/24 Rx mcg-salmeterol 21 mcg/actuation HFA inhaler (Advair HFA) carvedilol 6.25 mg tablet 6.25 mg PO BID #180 tabs 07/13/23 01/11/24 Rx bupropion HCl 300 mg 24 hr tablet, See Rx Instructions PO QAM #90 tabs 09/14/23 01/11/24 Rx extended release tamsulosin 0.4 mg capsule 0.4 mg PO QHS #90 caps 12/19/23 01/11/24 Rx venlafaxine 100 mg tablet 100 mg PO BID #60 tabs 12/19/23 01/11/24 Rx Exam Narrative Exam Narrative: GEN: Alert and oriented to self and place, not situation. Pleasant and cooperative with exam. Unable to give history, speaks in word salad with fragments of words and sounds. Well groomed. No acute distress at rest. HEENT: Head atraumatic. Conjunctiva clear, no icterus. PEERL, EOMI. no rhinorrhea. MMM, OP benign. Neck is supple with no masses or lymphadenopathy. LUNGS: CTAB with normal effort CV: RRR with no murmurs, gallops, or rubs. ABD: active bowel sounds, soft, nontender and nondistended. No masses. EXT: no cyanosis, clubbing, or edema MSK: No joint redness or swelling NEURO: CN 2-12 intact, though difficult to assess visual field. No pronator drift. Has trouble following direction or mimicking the FNF, misses finger. Normal strength of 4 extremities, though needs instructions demonstrated (like squeezing). Speech sound is normal, speaks fluently in non-word sounds. DTRs symmetric, not hyperreflexic, toes downgoing. No tremor, has difficulty relaxing muscles in legs. I did not try to walk him but he was walking when he came in. SKIN: No rashes or open wounds or obvious skin lesions (not full skin exam). PSYCH: normal mood and affect Results Imaging CT scan - chest: report reviewed (1. No pulmonary emboli are seen. 2. Mild cardiomegaly, similar to prior. 3. New 4 x 4 cm right lower lobe pulmonary mass is concerning for malignancy. 4. Incidental findings as described. ) Imaging Studies: CT w/wo head/neck: 1. Hypoplasia/absence of the right A1 segment is a common developmental variant with normal caliber flow seen in the right anterior cerebral arterial branches distal to the level of the anterior communicating artery. 2. No large vessel stenosis or occlusion detected involving the remaining major branches of the anterior or posterior intracranial circulation. 3. Multiple hemorrhagic foci with associated perilesional edema and regional mass effect are seen scattered throughout both cerebral hemispheres with the largest of these intraparenchymal hemorrhages measuring up to 3.8 cm maximum AP dimension along the anterior left temporal lobe. No acute transcortical infarction is detected. Labs 01/11/24 22:05 01/11/24 22:05 Labs: Laboratory Results - last 24 hr 01/11/24 01/11/24 01/11/24 22:05 22:05 23:00 WBC 9.25 RBC 3.91 L Hgb 13.0 L Hct 38.1 L MCV 97 H MCH 33.2 H MCHC 34.1 RDW 12.6 Plt Count 245 MPV 9.7 Immature Gran % 1.0 Neutrophils % 72.0 Lymphocytes % 13.2 Monocytes % 11.0 Eosinophils % 2.5 Basophils % 0.3 Nucleated RBC % 0.0 Absolute Neutrophils 6.66 Absolute Lymphocytes 1.22 Absolute Monocytes 1.02 H Absolute Eosinophils 0.23 Absolute Basophils 0.03 PT 10.9 INR 1.1 APTT 31.1 Cancelled VBG pH 7.42 H VBG pCO2 42 VBG pO2 43 VBG HCO3 27 VBG Total CO2 24 VBG O2 Saturation 76 VBG Base Excess 3 Sodium 140 Potassium 3.8 Chloride 102 Carbon Dioxide 27.5 Anion Gap 10.5 BUN 24 H Creatinine 1.4 H Est GFR (CKD-EPI 2020) 50.18 Glucose 158 H Calcium 9.0 Magnesium 1.7 L Total Bilirubin 0.49 AST 35 ALT 31 Alkaline Phosphatase 131 H Troponin I 15 13 Total Protein 7.2 Albumin 3.2 L TSH 1.67 Ethyl Alcohol < 3.0 01/12/24 01:06 WBC RBC Hgb Hct MCV MCH MCHC RDW Plt Count MPV Immature Gran % Neutrophils % Lymphocytes % Monocytes % Eosinophils % Basophils % Nucleated RBC % Absolute Neutrophils Absolute Lymphocytes Absolute Monocytes Absolute Eosinophils Absolute Basophils PT INR APTT VBG pH VBG pCO2 VBG pO2 VBG HCO3 VBG Total CO2 VBG O2 Saturation VBG Base Excess Sodium Potassium Chloride Carbon Dioxide Anion Gap BUN Creatinine Est GFR (CKD-EPI 2020) Glucose Calcium Magnesium Total Bilirubin AST ALT Alkaline Phosphatase Troponin I Cancelled Total Protein Albumin TSH Ethyl Alcohol Last Vital Signs Temp 37.2 C 01/11/24 22:54 Pulse 64 01/12/24 01:06 Resp 16 01/12/24 01:06 BP 99/55 L 01/12/24 01:06 Pulse Ox 97 01/12/24 01:06 Time Spent Time spent with Patient: >75 minutes Time was spent: preparing to see the patient(eg.review tests), obtaining and/or reviewing separately otained hiistory, ordering medications,tests, procedures, referring, communicating with other health manager primary care, indepentently interpreting results, counseling the patient and care coordination
[2024-01-12] MEDS: Normal Saline Flush 10 ML SYR IVP ×2 (01:45→02:31)
[2024-01-12] MEDS: Haloperidol 5 MG/ML VIAL IM/IV (02:05)
--- NOTE | 2024-01-12 07:21 | PDOC.HHF2F ---
Home Health Referral Home Health Orders Clinical synopsis of why skilled professionals are needed: symptoms management, end of life care Medical diagnosis necessitation home health referral: metastatic brain tumors with hemorrhage, dysarthria/confusion Registered Nurse: Check all that apply Assess for exacerbation of medical condition, instruct patient/caregivers on signs and symptoms to report for early detection: Ordered Other: hospice kit Mixer And Scaler: Assist with community resources: Ordered Assist with assisted care planning: Ordered Home Bound Status Requires the aid of supportive device (check all that apply): Other (confusion, needs direction/orientation) Describe why leaving home would require a considerable and taxing effort: Confusion Encounter Date and Reason: I certify that a FTF encounter for this patient was performed on January 12, 2024 and that such encounter was related to the primary reason the patient requires home health services. The encounter was conducted in the following manner: By me as the certifying physician, ARTIFICIAL LIMB FITTER, PA or By an inpatient physician, ARTIFICIAL LIMB FITTER or PA during an inpatient stay who communicated findings to me, Certification And Authentication I certify that I composed the above information based on my clinical judgment relating to this patient's medical condition and, if applicable, clinical findings communicated to me by the NPP or inpatient physician who performed the FTF encounter. Name of Provider that will be monitoring home health services: Joseluis Ford
--- NOTE | 2024-01-12 08:29 | PDOC.CMIN ---
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) Instrumental Activities of Daily Living (ADLs): Independent Medications Medication Management: No Issues/Barriers identified Advance Directives Advance Directives: Do you have an Advance Directive: Y 12/18/19 15:10 AD On File at [facility]: Y 12/18/19 15:10 Date Asked 01/11/24 01/11/24 22:26 AD Date Reviewed 05/12/23 05/12/23 12:14 COLST On File at [facility] COLST Date Scanned Code Status Resuscitation Status DNR/DNI Insurance Coverage/Financial Issues Insurance: Medicare [facility] supplement Care Team Visit Care Team Role Provider Type Joseluis Ford DO Primary Care Provider OSTEOPATHIC DOCTOR Carlos Cuellar DO Emergency Provider [facility] STAFF PHYSICIAN Dixon Reilly Admit Provider [facility] STAFF PHYSICIAN Attending Provider Discharge Potential Discharge Needs: PCP F/U Appt Anticipated Barriers to Discharge: None Identified Patient/Family Education Needs: Review discharge instructions, discuss Ask Me Three Transportation: Private vehicle Plan: Anticipate Yaya will be discharged home and admitted to hospice. He will follow up with his community providers both locally and at [facility] and will transport with family. CM will follow and continue to assess for discharge needs. PFSH All Active Problems (Updated 01/12/24 @ 03:07 by Carlos Cuellar DO) Dysarthria (Acute) Brain lesion (Acute) Intracranial hemorrhage (Acute) Metastasis to brain (Acute) Lung cancer (Chronic) Right lower lobe lung mass (Acute) Lower urinary tract symptoms (LUTS) (Acute) Abnormal CT scan (Acute) Hemorrhoids (Acute ~06/2023) internal and external Asthma (Chronic) SYLVIE (obstructive sleep apnea) (Chronic) Dyspnea on exertion (Acute) Impacted cerumen, bilateral (Acute) History of prostate cancer (Acute) Anemia (Chronic ~03/2021) Resolved with recheck 06/2021; again (mild) 06/2022 --> monitor 3 mo Memory loss (Acute) aricept started 08/12/21 cc Hereditary and idiopathic neuropathy, unspecified (Acute) Cardiomegaly (Acute) Xerosis cutis (Acute) 06/01/21-[facility] note: right posterior thigh. Chronic low back pain (Acute) Ascending aorta dilatation (Chronic) Incomplete right bundle branch block (Acute) 12-lead EKG [facility] Marked sinus bradycardia. 11/20/19 Lightheadedness (Chronic) [facility] Neuro; 09/03/2019: felt to be multifactorial; 11/2019: [facility] Cardiology orders Ziopatch for left atrial dilation, no arrhythmia, no treatment, return to Neuro in one year Imbalance (Acute) Depression (Chronic) Abnormal cardiovascular stress test (Acute 04/19/18) note dated 03/13/19 [facility] Horizontal depressions 1.5-2mm V3-V6, negative myocardial perfusion defects Tinnitus, bilateral (Acute) Diverticulosis (Chronic) 09/14/2017 colonoscopy ([facility]) 06/2023-[facility] colonoscopy Seborrheic dermatitis (Chronic) Sensorineural hearing loss of both ears (Chronic) Mitral valve insufficiency (Chronic) 04/03/2018 echo Vitreous degeneration of both eyes (Chronic) Moderate tricuspid valve regurgitation (Chronic) Most recent echo ([facility]) 02/11/2021 Moderate aortic valve regurgitation (Chronic) Most recent echo ([facility]) 02/11/2021: [id number] Severe obstructive sleep apnea (Chronic) CPAP; [facility] Sleep Medicine (Tereza Hernandez APRN) 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[facility] Sleep Center; hypnotic use Other and unspecified hyperlipidemia (Chronic 05/10/11) PCEq risk 26%; LDL baseline 170 Male erectile disorder (Chronic 03/21/13) IFG (impaired fasting glucose) (Chronic 01/24/17) Essential hypertension (Chronic 05/10/11) Allergic rhinitis, unspecified (Chronic 05/10/11) Medical History Seborrheic keratosis 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: split thickness skin graft to left posterior scalp with harvest from right posterior thigh Dermatophytosis of nail (05/10/11) Bladder tumor (06/30/14) S/p bladder and prostate surgery Achilles tendinitis (11/21/13) Surgical History Hx of colonoscopy (07/11/23) [facility] no repeat due to age Status post Mohs surgery (~12/2022) malignant melanoma in situ vertex scalp and in situ central upper back 12/05 Hx of breast surgery Status post tendon repair (03/17/21) right quadriceps tear repair H/O basal cell carcinoma excision (~10/2020) right shoulder Status post prostatectomy (~2004) History of right inguinal hernia repair 03/23/18 Dr Hermes Banks [facility] General Surgery Cystoscopy (11/24/16) [facility]-Dr Padgett and 03/24/17 04/08/20-[facility] Colonoscopy - IV Sedation (07/31/14) w/ bx with both 09/14/[place] [facility] [place] colonoscopy 3 polyps Colonoscopy - IV Sedation (12/20/04) w/ bx with both 09/14/17 [facility] [place]- colonoscopy 3 polyps Family History Father Neurological disorder Alcohol use disorder Progressive supranuclear palsy Mother Breast cancer Social History Smoking/Tobacco Use Status: Former Tobacco Use Tobacco: How many years used: 40 Quit status: quit date established Second Hand Exposure: No Smoking risk assessment performed?: Yes Alcohol Intake: current Alcohol Intake frequency: 3 or more drinks per day Alcohol type: wine Drug use: Never Substance use type: does not use Adopted: No Caregiver/Support person: No Foster care: No Household members: spouse Housing: house Number of Children: 3 number of grandchildren: 7 Communication Needs: Corrective Lenses Education Level: master's degree Do you need help understanding health information?: Never 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 Pets and animals: No Do you think of yourself as: straight/heterosexual Current gender identity: male What is your relationship status?: How often do you talk on the phone with friends or family?: twice per week How often do you get together with friends or relatives?: once per week Do you belong to any clubs or organized social groups?: no Panel score (0-1 are the most socially isolated patients): 2 What type of physical activity do you participate in: bicycling and regular exercise Duration: 15-30 minutes/day Frequency: 3-4 times per week Chikis/Buddhism: None Seatbelt use: always Helmet use: Yes Drive intox 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
--- NOTE | 2024-01-12 09:07 | CHAPLAIN ---
I had a brief visit with Yaya's , Ilda, just at Yaya was being discharged. Yaya was very recently diagnosed with lung cancer and came to the ED last night after family noticed that he was confused and not making sense when speaking. In the ED family members agreed to have Yaya admitted over night and then take him home this morning for admission to Hospice. Ilda said they have 18 people at their house, including young kids, for Thanksgiving. (Ilda was a long time community member of our Ethics Committee.) I reminded Ilda that Rev. Lorraine Tapia is the legal summer intern and she could ask to meet with her at any time. Ilda has known Lorraine for many years.
--- NOTE | 2024-01-12 09:37 | PDOC.CMPRO ---
Date of service: 01/12/24 Time of Service: 09:37 Care Management Progress Note Progress Note Text Progress Note Text: Yaya was admitted overnight with stroke-like symptoms. He has recently (within the past few days) been found to have metastatic disease with a new lesion in his lung. CTA of his head and neck revealed multiple hemorrhagic lesions in his brain. The family has requested discharged home on hospice. CM contacted [facility] and informed them of the request for hospice service. Yaya will discharge home this morning and be admitted to hospice tomorrow. A prescription for prn haloperidol was sent to his pharmacy. SDOH(Care Management) Screening Will the Patient Participate in the Screening?: Unable to obtain
--- NOTE | 2024-01-12 11:36 | W.PM.DS.N ---
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 CT/CTA showed scattered hemorrhagic metastatic brain lesions. The patient was unable to understand what was happening to him, but his family including /ALEJANDRA Gonsales all agreed that he would not want to pursue aggressive treatment in this scenario. Neurosurgery transfer was declined. 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 Due to his lack of mental processing, he was agitated and required diazepam and haloperidol to allow him to sleep. The family didn't want to have to sedate him, so he was discharged in the morning with hospice referral. Home Meds and New Rx's Prescriptions: New haloperidol 1 mg tablet 1 mg PO TID PRN (Reason: agitation) Qty: 10 0RF Continued fluticasone propion-salmeterol [Advair HFA] 230-21 mcg/actuation HFA aerosol inhaler 2 puff inhalation BID Qty: 12 5RF albuterol sulfate 90 mcg/actuation HFA aerosol inhaler 2 puff inhalation Q4H PRN (Reason: shortness of breath or wheezing) Qty: 8.5 0RF venlafaxine 100 mg tablet 100 mg PO BID Qty: 60 1RF tamsulosin 0.4 mg capsule 0.4 mg PO QHS Qty: 90 0RF multivitamin [Daily Vitamin] 1 EACH tablet 1 ea PO DAILY ascorbic acid (vitamin C) 1,000 MG tablet 1,000 mg PO DAILY calcium carbonate-vit D3-min 1 EACH tablet 1 ea PO zaleplon 5 mg capsule See Rx Instructions PO .QHS PRN Patient Comments: 05/07/19- Sleep Medicine Tereza Hernandez NP Rx Instructions: 5-10MG PO QHS PRN; amlodipine 10 mg tablet 10 mg PO DAILY Rx Instructions: [facility], Pt reported on [place] 10/07/19 [facility] [place] losartan 100 mg tablet 100 mg PO DAILY Rx Instructions: increased dose from 5 mg to 10 mg by [facility] per pt report on [place] 10/07/19 [facility] [place] scopolamine base [Transderm-Scop] 1 mg over 3 days patch 3 day 1 patch Transdermal Q72H PRN (Reason: motion sickness) Qty: 10 0RF Rx Instructions: sildenafil [Viagra] 100 mg tablet 50 - 100 mg PO ONCE PRN (Reason: sexual activity) Qty: 10 6RF Rx Instructions: Take 30 minutes to 4 hours before activity pantoprazole 20 mg tablet,delayed release (DR/EC) 20 mg PO DAILY Qty: 90 3RF Rx Instructions: Take 20 mg daily once daily in the morning at least 30-60 minutes before first meal of the day carvedilol 6.25 mg tablet 6.25 mg PO BID Qty: 180 3RF Rx Instructions: must administer with a meal/food, by [facility] per patient reports on [place] 10/07/19 [facility] [place] bupropion HCl 300 mg tablet extended release 24 hr See Rx Instructions PO QAM MDD 450 mg Qty: 90 3RF Rx Instructions: Take one 150 mg pill + one 300 mg pill for a total daily dose of 450 mg PO every morning Discontinued atorvastatin 40 mg tablet 40 mg PO DAILY Discharge Instructions Additional Instructions: He can continue whatever medications he wants to take with focus on symptoms Follow up with hospice intake as planned He should NOT drive at all Activity:: Activity as Tolerated Equipment/Supplies:: No Equipment Needed Diet:: As Tolerated Discharge Orders Discharge Orders: Discharge Order (Routine); Ordered 01/12/24 Ordered By: Mikey Gan Discharge Data Discharge Date/Time-TO BE ENTERED AT DEPARTURE: 01/12/24 09:00 DS: Summary Time Spent with Patient providing and/or coordinating discharge services: Less than 30 minutes Status at Discharge Functional status at discharge: bed bound Overall status at discharge: patient is not back to baseline Mental Status: other Speech and Movement: other Mood: other Affect: other Quality:SDOH Health Related Social Needs: No Data to Display Exam Narrative Exam Narrative: deferred to Dr Reilly Psych Mental Status: other Speech and Movement: other Mood: other Affect: other DS: Data Vitals/I&O Vitals and I&O: Vital Signs Temperature 36.5 C 01/12/24 01:15 Temperature Source Temporal Artery Scan 01/12/24 01:15 Pulse 94 H 01/12/24 01:15 Pulse Rhythm Regular 01/11/24 23:53 Pulse Strength Normal 01/11/24 23:53 Pulse 67 01/12/24 00:46 Respiratory Rate 16 01/12/24 01:15 Respiratory Effort Normal 01/12/24 01:15 Respiratory Depth Normal 01/12/24 01:15 Respiratory Pattern Normal 01/12/24 01:15 Blood Pressure 154/86 H 01/12/24 01:15 Blood Pressure Mean 108 01/12/24 01:15 Blood Pressure Position Supine 01/12/24 01:15 Pulse Oximetry 95 01/12/24 01:15 Oxygen Delivery Method Room Air 01/12/24 01:15 Oxygen Flow Rate 0 01/12/24 01:15 Pain Level 0 01/11/24 22:54 Intake & Output 01/11/24 01/11/24 01/12/24 11:59 23:59 11:59 Weight 89.6 kg Other: Comment Pt voided in M/S bathroom- not measured. Pt DIRECTOR OF MUSIC THERAPY status. Data Completed and Pending Labs on day of discharge: Labs from last 24 hours 01/12/24 01/11/24 01/11/24 01:06 23:00 22:05 WBC RBC Hgb Hct MCV MCH MCHC RDW Plt Count MPV Immature Gran % Neutrophils % Lymphocytes % Monocytes % Eosinophils % Basophils % Nucleated RBC % Absolute Neutrophils Absolute Lymphocytes Absolute Monocytes Absolute Eosinophils Absolute Basophils PT INR APTT Cancelled VBG pH 7.42 H VBG pCO2 42 VBG pO2 43 VBG HCO3 27 VBG Total CO2 24 VBG O2 Saturation 76 VBG Base Excess 3 Sodium 140 Potassium 3.8 Chloride 102 Carbon Dioxide 27.5 Anion Gap 10.5 BUN 24 H Creatinine 1.4 H Est GFR (CKD-EPI 2020) 50.18 Glucose 158 H Calcium 9.0 Magnesium 1.7 L Total Bilirubin 0.49 AST 35 ALT 31 Alkaline Phosphatase 131 H Troponin I Cancelled 13 15 Total Protein 7.2 Albumin 3.2 L TSH 1.67 Ethyl Alcohol < 3.0 01/11/24 22:05 WBC 9.25 RBC 3.91 L Hgb 13.0 L Hct 38.1 L MCV 97 H MCH 33.2 H MCHC 34.1 RDW 12.6 Plt Count 245 MPV 9.7 Immature Gran % 1.0 Neutrophils % 72.0 Lymphocytes % 13.2 Monocytes % 11.0 Eosinophils % 2.5 Basophils % 0.3 Nucleated RBC % 0.0 Absolute Neutrophils 6.66 Absolute Lymphocytes 1.22 Absolute Monocytes 1.02 H Absolute Eosinophils 0.23 Absolute Basophils 0.03 PT 10.9 INR 1.1 APTT 31.1 VBG pH VBG pCO2 VBG pO2 VBG HCO3 VBG Total CO2 VBG O2 Saturation VBG Base Excess Sodium Potassium Chloride Carbon Dioxide Anion Gap BUN Creatinine Est GFR (CKD-EPI 2020) Glucose Calcium Magnesium Total Bilirubin AST ALT Alkaline Phosphatase Troponin I Total Protein Albumin TSH Ethyl Alcohol PFSH All Active Problems (Updated 01/12/24 @ 03:07 by Carlos Cuellar DO) Dysarthria (Acute) Brain lesion (Acute) Intracranial hemorrhage (Acute) Metastasis to brain (Acute) Lung cancer (Chronic) Right lower lobe lung mass (Acute) Lower urinary tract symptoms (LUTS) (Acute) Abnormal CT scan (Acute) Hemorrhoids (Acute ~06/2023) internal and external Asthma (Chronic) SYLVIE (obstructive sleep apnea) (Chronic) Dyspnea on exertion (Acute) Impacted cerumen, bilateral (Acute) History of prostate cancer (Acute) Anemia (Chronic ~03/2021) Resolved with recheck 06/2021; again (mild) 06/2022 --> monitor 3 mo Memory loss (Acute) aricept started 08/12/21 cc Hereditary and idiopathic neuropathy, unspecified (Acute) Cardiomegaly (Acute) Xerosis cutis (Acute) 06/01/21-[facility] note: right posterior thigh. Chronic low back pain (Acute) Ascending aorta dilatation (Chronic) Incomplete right bundle branch block (Acute) 12-lead EKG [facility] Marked sinus bradycardia. 11/20/19 Lightheadedness (Chronic) [facility] Neuro; 09/03/2019: felt to be multifactorial; 11/2019: [facility] Cardiology orders Ziopatch for left atrial dilation, no arrhythmia, no treatment, return to Neuro in one year Imbalance (Acute) Depression (Chronic) Abnormal cardiovascular stress test (Acute 04/19/18) note dated 03/13/19 [facility] Horizontal depressions 1.5-2mm V3-V6, negative myocardial perfusion defects Tinnitus, bilateral (Acute) Diverticulosis (Chronic) 09/14/2017 colonoscopy ([facility]) 06/2023-[facility] colonoscopy Seborrheic dermatitis (Chronic) Sensorineural hearing loss of both ears (Chronic) Mitral valve insufficiency (Chronic) 04/03/2018 echo Vitreous degeneration of both eyes (Chronic) Moderate tricuspid valve regurgitation (Chronic) Most recent echo ([facility]) 02/11/2021 Moderate aortic valve regurgitation (Chronic) Most recent echo ([facility]) 02/11/2021: [id number] Severe obstructive sleep apnea (Chronic) CPAP; [facility] Sleep Medicine (Tereza Hernandez APRN) 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[facility] Sleep Center; hypnotic use Other and unspecified hyperlipidemia (Chronic 05/10/11) PCEq risk 26%; LDL baseline 170 Male erectile disorder (Chronic 03/21/13) IFG (impaired fasting glucose) (Chronic 01/24/17) Essential hypertension (Chronic 05/10/11) Allergic rhinitis, unspecified (Chronic 05/10/11) Medical History Seborrheic keratosis 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: split thickness skin graft to left posterior scalp with harvest from right posterior thigh Dermatophytosis of nail (05/10/11) Bladder tumor (06/30/14) S/p bladder and prostate surgery Achilles tendinitis (11/21/13) Surgical History Hx of colonoscopy (07/11/23) [facility] no repeat due to age Status post Mohs surgery (~12/2022) malignant melanoma in situ vertex scalp and in situ central upper back 12/05 Hx of breast surgery Status post tendon repair (03/17/21) right quadriceps tear repair H/O basal cell carcinoma excision (~10/2020) right shoulder Status post prostatectomy (~2004) History of right inguinal hernia repair 03/23/18 Dr Hermes Banks [facility] General Surgery Cystoscopy (11/24/16) [facility]-Dr Padgett and 03/24/17 04/08/20-[facility] Colonoscopy - IV Sedation (07/31/14) w/ bx with both 09/14/17 [facility] [place]- colonoscopy 3 polyps Colonoscopy - IV Sedation (12/20/04) w/ bx with both 09/14/17 [facility] [place]- colonoscopy 3 polyps Family History Father Neurological disorder Alcohol use disorder Progressive supranuclear palsy Mother Breast cancer Social History Smoking/Tobacco Use Status: Former Tobacco Use Tobacco: How many years used: 40 Quit status: quit date established Second Hand Exposure: No Smoking risk assessment performed?: Yes Alcohol Intake: current Alcohol Intake frequency: 3 or more drinks per day Alcohol type: wine Drug use: Never Substance use type: does not use Adopted: No Caregiver/Support person: No Foster care: No Household members: spouse Housing: house Number of Children: 3 number of grandchildren: 7 Communication Needs: Corrective Lenses Education Level: master's degree Do you need help understanding health information?: Never 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 Pets and animals: No Do you think of yourself as: straight/heterosexual Current gender identity: male What is your relationship status?: How often do you talk on the phone with friends or family?: twice per week How often do you get together with friends or relatives?: once per week Do you belong to any clubs or organized social groups?: no Panel score (0-1 are the most socially isolated patients): 2 What type of physical activity do you participate in: bicycling and regular exercise Duration: 15-30 minutes/day Frequency: 3-4 times per week Chikis/Baptist: None Seatbelt use: always Helmet use: Yes Drive intox or ride w/intox bellman driver: No Water heater temp set <120 deg: Yes Working smoke detector in home: Yes Fire extinguisher in home: Yes Carbon monox detector in home: Yes Firearms in home: Yes Firearms unloaded and locked: Yes Do you feel safe at home: Yes Do you feel safe in your relationship?: Yes Time Spent with Patient Time Spent with Patient: <45 minutes Time was spent: other
== END 2024-01-12 09:00 | disposition hospice, home (50) ==
LOC: ER 23:57 → ICU 01-12 01:00
PROVIDERS: Admitting Provider Family Medicine; Emergency Provider Student in an Organized Health Care Education/Training Program; PCP Family Medicine; Visit Provider Family Medicine
DX: I61.6 Nontraumatic intracerebral hemorrhage, multiple localized (principal); C79.31 Secondary malignant neoplasm of brain; J45.909 Unspecified asthma, uncomplicated; G47.33 Obstructive sleep apnea (adult) (pediatric); Z79.899 Other long term (current) drug therapy; I51.7 Cardiomegaly; R47.1 Dysarthria and anarthria; Z85.820 Personal history of malignant melanoma of skin; C79.51 Secondary malignant neoplasm of bone; C78.01 Secondary malignant neoplasm of right lung; Z66 Do not resuscitate
CPT/HCPCS: 00123; 36415; 36416; 70496; 70498; 71275; 80053; 82805; 82962; 93005; 96374; 96375; 96376; 99291; 80320; 83735; 84443; 84484; 85025; 85610; 85730; 93010; 99223; 99238; G0378; J1630; J3360; J3490